=== PATIENT | female | born 1965 | race Caucasian/White ===

== ENCOUNTER → 2016-03-07 | Outpatient (CLI) | payer BC ==
[~2016-03-07] MED LIST: DIPH-437 PO; IMT100 PO; INDSR/60 PO; MELA3CAP PO; ONDA4TAB7 SL; OXYB15TA PO; PANT40TA PO; PRM625 PO; TOPI50TA16 PO; TOPI50TA25 PO
== END | disposition home or self-care (01) ==
LOC: C.PATH 08:05
PROVIDERS: ATTEND Obstetrics & Gynecology
DX: N63 Unspecified lump in breast (principal); N62 Hypertrophy of breast

== ENCOUNTER → 2016-04-11 | Outpatient (CLI) | payer BC ==
[2016-04-11 10:03] LABS: HEMATOCRIT 39.6 % (37-47); MEAN CELL VOLUME 85.7 fL (80-100); MEAN CORPUSCULAR HEMOGLOBIN 28.8 pg (25-34); MEAN CORPUSCULAR HGB CONC 33.6 g/dl (32-36); MEAN PLATELET VOLUME 9.8 fL (7.4-10.4); PLATELET COUNT 289 K/uL (130-400); RED BLOOD COUNT 4.62 M/uL (4.2-5.4); WHITE BLOOD COUNT 4.59 K/uL (4.8-10.8)
[2016-04-11 10:10] LABS: ESTIMATED AVERAGE GLUCOSE 108 mg/dl; HA1C FLAG Normal (Normal)
[2016-04-11 10:22] LABS: BASO % 0.7 %; BASO ABS # 0.03 K/uL (0-0.2); COMPLETE YES; EOS % 1.1 %; IG% 0.2 %; LYMPH % 53.2 %; LYMPH ABS # 2.44 K/uL (1.2-3.4); MONO % 3.9 %; NEUT % 40.9 %
[2016-04-11 10:38] LABS: ALT/SGPT 20 U/L (12-78); AST/SGOT 8 U/L (15-37); BLOOD UREA NITROGEN 12 mg/dl (7-18); BUN/CREATININE RATIO 12.6 (10-20); CALCIUM 8.7 mg/dl (8.5-10.1); CARBON DIOXIDE 24 mmol/L (21-32); CHLORIDE 113 mmol/L (98-107); CREATININE 0.92 mg/dl (0.60-1.20); GLUCOSE 94 mg/dl (70-99); SODIUM 145 mmol/L (136-145)
[2016-04-11 10:41] LABS: ALKALINE PHOSPHATASE 65 U/L (45-117); CHOLESTEROL 205 mg/dl (0-200); CHOLESTEROL/HDL RATIO 2.6; HDL CHOLESTEROL 78 mg/dl; LDL CHOLESTEROL CALCULATED 107 mg/dl; TRIGLYCERIDES 98 mg/dl (0-150); VERY LOW DENSITY LIPOPROT CALC 20 mg/dl
== END | disposition home or self-care (01) ==
LOC: C.LAB1850 09:08
PROVIDERS: ATTEND Family Medicine
DX: R73.03 Prediabetes (principal); Z13.220 Encounter for screening for lipoid disorders; G43.909 Migraine, unspecified, not intractable, without status migrainosus

== ENCOUNTER → 2016-04-29 | Outpatient (CLI) | payer BC ==
--- NOTE | 2016-04-29 08:22 | DIAGNOSTIC IMAGING REPORT ---
FUSION CT SINUSES W/O CLINICAL HISTORY: Chronic sinusitis. History of prior sinus surgery. Polyp. Ethmoid blockage. COMPARISON STUDY: No previous studies for comparison. FINDINGS: No orbital masses are visualized. There is no hydrocephalus. The mastoid air cells appear symmetrically aerated. The middle ear cavities are well aerated. There are postsurgical changes present. The surgically created nasomaxillary apertures are widely patent bilaterally. There is mild bilateral maxilla sinus mucosal thickening. There is evidence for partial ethmoidectomies. The sphenoid sinus is clear. There is minimal frontal sinus mucosal thickening. There is minor nasal septal deviation to the left. The frontal recesses are patent bilaterally. IMPRESSION: Postsurgical change. Mild maxillary and ethmoid mucosal thickening. The created nasomaxillary apertures are widely patent bilaterally. The frontal recesses are patent bilaterally. Electronically signed by: Gary Ramirez M.D. 04/29/2016 8:21 AM Dictated Date/Time: 04/29/2016 8:18 AM
== END | disposition home or self-care (01) ==
LOC: C.CTS 08:03
PROVIDERS: ATTEND Surgery
DX: J32.9 Chronic sinusitis, unspecified (principal)

== ENCOUNTER → 2016-10-02 | Outpatient (CLI) | payer BC ==
[2016-10-02 17:44] LABS: BASO % 0.4 %; BASO ABS # 0.03 K/uL (0-0.2); COMPLETE YES; EOS % 0.9 %; HEMATOCRIT 39.4 % (37-47); IG% 0.1 %; LYMPH % 37.9 %; LYMPH ABS # 2.67 K/uL (1.2-3.4); MEAN CELL VOLUME 86.8 fL (80-100); MEAN CORPUSCULAR HEMOGLOBIN 27.8 pg (25-34); MEAN PLATELET VOLUME 10.4 fL (7.4-10.4); MONO % 4.5 %; NEUT % 56.2 %; PLATELET COUNT 304 K/uL (130-400); RED BLOOD COUNT 4.54 M/uL (4.2-5.4); WHITE BLOOD COUNT 7.04 K/uL (4.8-10.8)
[2016-10-02 18:09] LABS: ALT/SGPT 27 U/L (12-78); AST/SGOT 12 U/L (15-37); BLOOD UREA NITROGEN 9 mg/dl (7-18); BUN/CREATININE RATIO 8.1 (10-20); CARBON DIOXIDE 25 mmol/L (21-32); CHLORIDE 111 mmol/L (98-107); GLUCOSE 104 mg/dl (70-99); POTASSIUM 3.9 mmol/L (3.5-5.1); SODIUM 142 mmol/L (136-145)
[2016-10-02 18:19] LABS: ALB/GLOB RATIO 0.9 (0.9-2); ALKALINE PHOSPHATASE 76 U/L (45-117)
[2016-10-02 19:21] LABS: LYME DISEASE AB IGG NEG (NEG); LYME DISEASE AB IGM NEG (NEG)
== END | disposition home or self-care (01) ==
LOC: C.LAB1850 16:24
PROVIDERS: ATTEND Internal Medicine
DX: M25.50 Pain in unspecified joint (principal); R53.83 Other fatigue

== ENCOUNTER → 2016-10-16 | Outpatient (CLI) | payer BC ==
--- NOTE | 2016-10-16 09:48 | DIAGNOSTIC IMAGING REPORT ---
LEFT KNEE 2 VIEWS HISTORY: Left knee pain. M25.50 Arthralgia of multiple trlrvE68.83 VqssfxvB17 Body aches COMPARISON: None. FINDINGS: There is no fracture or dislocation. Soft tissues are unremarkable. No radiopaque foreign bodies. Cartilage spaces are maintained. Bone mineralization is intact. No significant knee effusion. IMPRESSION: No significant abnormality within the left knee by conventional radiographic technique. Electronically signed by: New Wills M.D. 10/16/2016 9:47 AM Dictated Date/Time: 10/16/2016 9:46 AM
--- NOTE | 2016-10-16 09:48 | DIAGNOSTIC IMAGING REPORT ---
RIGHT KNEE 1 OR 2 VIEWS ROUTINE CLINICAL HISTORY: 51 years-old Female presenting with M25.50 Arthralgia of multiple ozjlyS74.83 RzagwkcM20 Body achesR Right. TECHNIQUE: Frontal and lateral views of the right knee were obtained. COMPARISON: Comparison made to plain radiographs of the left knee performed the same day. FINDINGS: Knee joint congruent. No acute fracture or malalignment. No joint space loss. Minimal osteophytosis at the medial and lateral aspects of the tibial plateau are suggested. Osteophytosis also noted in the patellofemoral compartment. No large effusion. IMPRESSION: 1. No acute osseous injury of the right knee. 2. 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 No joint space loss. Electronically signed by: Shekhar Donald M.D. 10/16/2016 9:47 AM Dictated Date/Time: 10/16/2016 9:45 AM
--- NOTE | 2016-10-16 09:50 | DIAGNOSTIC IMAGING REPORT ---
RIGHT HAND MIN 3 VIEWS ROUTINE, LEFT HAND MIN 3 VIEWS ROUTINE HISTORY: 51 years-old Female M25.50 Arthralgia of multiple daumyA08.83 Fatigue R52 Body aches COMPARISON: None available TECHNIQUE: 3 views of the bilateral hands. FINDINGS: RIGHT HAND: Mild degenerative changes are present within the first carpometacarpal joint. No acute fracture or dislocation. Punctate radiodensity at the distal fourth digit appears to be on the nail. No radiopaque foreign body is identified. No erosive arthropathy. There is positive ulnar variance of 3 mm. LEFT HAND: Mild degenerative changes are present within the first carpometacarpal joint. There is positive ulnar variance of 3 mm. No acute fracture, dislocation or radiopaque foreign body is identified. IMPRESSION: 1. No acute fracture or dislocation is identified in either the right or left hand. 2. Mild degenerative changes of the bilateral first carpometacarpal joints. The above report was generated using voice recognition software. It may contain grammatical, syntax or spelling errors. Electronically signed by: Flavio Leavitt M.D. 10/16/2016 9:49 AM Dictated Date/Time: 10/16/2016 9:45 AM
--- NOTE | 2016-10-16 09:50 | DIAGNOSTIC IMAGING REPORT ---
RIGHT HAND MIN 3 VIEWS ROUTINE, LEFT HAND MIN 3 VIEWS ROUTINE HISTORY: 51 years-old Female M25.50 Arthralgia of multiple solnjZ25.83 Fatigue R52 Body aches COMPARISON: None available TECHNIQUE: 3 views of the bilateral hands. FINDINGS: RIGHT HAND: Mild degenerative changes are present within the first carpometacarpal joint. No acute fracture or dislocation. Punctate radiodensity at the distal fourth digit appears to be on the nail. No radiopaque foreign body is identified. No erosive arthropathy. There is positive ulnar variance of 3 mm. LEFT HAND: Mild degenerative changes are present within the first carpometacarpal joint. There is positive ulnar variance of 3 mm. No acute fracture, dislocation or radiopaque foreign body is identified. IMPRESSION: 1. No acute fracture or dislocation is identified in either the right or left hand. 2. Mild degenerative changes of the bilateral first carpometacarpal joints. The above report was generated using voice recognition software. It may contain grammatical, syntax or spelling errors. Electronically signed by: Flavio Leavitt M.D. 10/16/2016 9:49 AM Dictated Date/Time: 10/16/2016 9:45 AM
[2016-10-16 12:16] LABS: URINE APPEARANCE CLEAR (CLEAR); URINE BILIRUBIN NEG (NEG); URINE COLOR YELLOW; URINE EPITHELIAL CELL AUTO >30 /lpf (0-5); URINE NITRITE NEG (NEG); URINE PH 7.5 (4.5-7.5); URINE SPECIFIC GRAVITY 1.007 (1.000-1.030); UROBILINOGEN NEG (NEG)
[2016-10-16 12:22] LABS: MANUAL MICROSCOPIC REQUIRED? NO; REVIEW REQ? NO
[2016-10-16 12:31] LABS: RHEUMATOID FACTOR < 10.0 U/mL (0-15); TOTAL IRON BINDING CAPACITY 363 mcg/dl (250-450)
[2016-10-21 03:01] LABS: ANTI-CENTROMERE AB <1.0 NEG AI (<1.0 NEG); ANTI-SS-A <1.0 NEG AI (<1.0 NEG); ANTI-SS-B <1.0 NEG AI (<1.0 NEG); DNA ds CRITHIDIA NEGATIVE (NEGATIVE); MICROSOMAL AB <1 IU/ML (<9); PARVOVIRUS IgG INDEX 0.3 (<0.9); PARVOVIRUS IgM INDEX 0.1 (<0.9); Sm Antibody <1.0 NEG AI (<1.0 NEG)
--- NOTE | 2016-10-21 11:36 | CODING QUERY MEDICAL NECESSITY ---
CQSUPPORTING DIAGNOSIS NEEDED A supporting diagnosis is required for the test/procedure performed on this patient in order for us to be reimbursed by the patient's insurance. Please provide a supporting diagnosis for the following test/procedure listed below next to the test name along with your signature. *If there is no additional diagnosis for this patient that would support the following test/procedure please document that below next to the test/procedure. Test(s)/Procedure(s) that require a supporting diagnosis: DOS 10/16/16 VITAMIN D TEST Provider Signature: Date: Thank you Dolores Hernandes Health Information Management Once completed, please kindly fax back to [phone] For questions please call [phone]
== END | disposition home or self-care (01) ==
LOC: C.RAD1850 09:29
PROVIDERS: ATTEND Internal Medicine Rheumatology
DX: M25.50 Pain in unspecified joint (principal); R53.83 Other fatigue; R76.8 Other specified abnormal immunological findings in serum; M17.11 Unilateral primary osteoarthritis, right knee; E55.9 Vitamin D deficiency, unspecified

== ENCOUNTER → 2016-10-31 | Outpatient (CLI) | payer BC ==
--- NOTE | 2016-10-31 12:44 | MAMMOGRAPHY REPORT ---
BILATERAL DIGITAL SCREENING MAMMOGRAM TOMOSYNTHESIS WITH CAD: 10/31/2016 CLINICAL HISTORY: Routine screening. Patient has no complaints. TECHNIQUE: Breast tomosynthesis in addition to standard 2D mammography was performed. Current study was also evaluated with a Computer Aided Detection (CAD) system. COMPARISON: Comparison is made to exams dated: 10/12/2015 mammogram, 09/08/2014 mammogram, 06/03/2013 m ammogram, 04/30/2012 mammogram, 04/24/2011 mammogram, and 01/23/2010 mammogram - [facility]. BREAST COMPOSITION: There are scattered areas of fibroglandular density in both breasts. FINDINGS: The parenchymal pattern is similar to prior mammograms. There are a few benign-appearing microcalcifications in the left breast. No developing mass, architectural distortion or cluster of s uspicious microcalcifications is seen in either breast. IMPRESSION: ACR BI-RADS CATEGORY 2: BENIGN There is no mammographic evidence of malignancy. A 1 year screening mammogram is recommended. The pa tient will receive written notification of the results. Approximately 10% of breast cancers are not detected with mammography. A negative mammographic report should not delay biopsy if a clinically suggestive mass is present. Chelsey Sen M.D. ay/:10/31/2016 08:15:06 [employer] Associate: Oly CALDERÓN(Alberto)(Terrie)([place]), [facility] letter sent: Normal 1/2 BI-RADS Code: ACR BI-RADS Category 2: Benign
== END | disposition home or self-care (01) ==
LOC: C.MAMM 07:46
PROVIDERS: ATTEND Obstetrics & Gynecology
DX: Z12.31 Encounter for screening mammogram for malignant neoplasm of breast (principal)

== ENCOUNTER → 2016-12-11 | Outpatient (CLI) | payer BC | END | disposition home or self-care (01) | LOC: C.LAB1850 10:06 | PROVIDERS: ATTEND Neuromusculoskeletal Medicine & OMM | DX: R53.83 Other fatigue (principal) ==

== ENCOUNTER → 2017-01-29 | Outpatient (CLI) | payer BC | END | disposition home or self-care (01) | LOC: C.LAB1850 13:30 | PROVIDERS: ATTEND Neuromusculoskeletal Medicine & OMM | DX: R53.83 Other fatigue (principal) ==

== ENCOUNTER → 2017-02-27 | Outpatient (CLI) | payer BC ==
[~2017-02-27] MED LIST changes: +CETI10TA84 PO; +CHOL20009 PO
== END | disposition home or self-care (01) ==
LOC: C.PATHSPEC 17:23
PROVIDERS: ATTEND Plastic Surgery
DX: L82.1 Other seborrheic keratosis (principal)

== ENCOUNTER 2017-03-14 09:04 | Emergency (ER) | payer OTHER, BC ==
[~2017-03-14] VITALS: Ht 172.7 cm; Wt 100.9 kg
[~2017-03-14 09:04] MED LIST changes: -CETI10TA84 PO; -CHOL20009 PO
[2017-03-14 09:07] VITALS: TEMP 36.6; Ht 172.7 cm; Wt 100.9 kg
[2017-03-14] MEDS ORDERED: ACETAMINOPHEN 500 MG TAB PO STA (09:21)
[2017-03-14] MEDS ORDERED: CETI10TA84 PO (09:48)
[2017-03-14] MEDS ORDERED: CHOL20009 PO (09:48)
--- NOTE | 2017-03-14 09:52 | DIAGNOSTIC IMAGING REPORT ---
R ELBOW MIN 3 VIEWS ROUTINE CLINICAL HISTORY: Fall. Right elbow pain. COMPARISON STUDY: None. FINDINGS: No fracture or dislocation. Soft tissues are unremarkable. No elbow effusion. IMPRESSION: No fracture or dislocation within the right elbow. Electronically signed by: New Wills M.D. 03/14/2017 9:50 AM Dictated Date/Time: 03/14/2017 9:48 AM
--- NOTE | 2017-03-14 10:43 | EMERGENCY ROOM VISIT NOTE ---
ED Visit Note First contact with patient: 09:12 CHIEF COMPLAINT: Right elbow injury 1 hour ago HISTORY OF PRESENT ILLNESS: Patient is a [id number] 51-year-old female who presents to the emergency department for evaluation of right elbow pain after a fall roughly 1 hour ago. She slipped on ice outside of her office , landing on her flexed right elbow with immediate onset of pain. She notes a constant pain in the elbow that she rates an 8/10. She has not had any medication for her pain. Pain is worse with movement. She states that it radiates slightly up her upper arm. She has been treated for a right frozen shoulder recently. Patient denies any other injuries. REVIEW OF SYSTEMS: Review of systems as per HPI. All other systems reviewed were negative. At least 6 systems reviewed. PMH: Electronic medical records are reviewed and summarized as above/below. See Problem List. SOCIAL HISTORY: Patient lives at home with her spouse. Nonsmoker. PHYSICAL EXAM: Vital Signs: Reviewed nurse's notes. CONSTITUTIONAL: Patient is a well-appearing 51-year-old white female who is awake and alert and in mild distress due to her elbow pain. MUSCULOSKELETAL: Examination of the right elbow notes some minor superficial ecchymosis. There is no pain or obvious deformity over the olecranon process. She does have some pain over the proximal radial head. She can flex greater than 90, just lacks a few degrees of extension. She can pronate and supinate fully but has discomfort with end range of motion. Shoulder and wrist are nontender. Right upper extremity is neurovascularly intact. EMERGENCY DEPARTMENT COURSE: Patient was given an ice pack and Tylenol for discomfort. X-rays of the right elbow were obtained and were negative for fracture. Patient was fitted with an arm sling. Conservative care measures were discussed. Differential diagnosis included fracture, dislocation, contusion, among others. She was encouraged to follow-up with orthopedics or her worker's compensation physician for further care and management particularly if her symptoms are not improving. Medication reconciliation: I attest that I have personally reviewed the patient' s current medication list. Blood pressure screening: Patient was found to have a slightly elevated blood pressure due to circumstances. I do not believe that the patient requires hypertension monitoring. R ELBOW MIN 3 VIEWS ROUTINE CLINICAL HISTORY: Fall. Right elbow pain. COMPARISON STUDY: None. FINDINGS: No fracture or dislocation. Soft tissues are unremarkable. No elbow effusion. IMPRESSION: No fracture or dislocation within the right elbow. Problem List Medical Problems: (1) Calculus Of Kidney Status: Resolved (2) Esophageal Reflux Status: Chronic (3) Kidney stone on left side Status: Resolved (4) Migraine Unspecified W/O Intract Mgrn W/O Status Migrainosus Status: Chronic (5) Polycystic Ovaries Status: Chronic (6) Ureteral colic Status: Resolved (7) Vitamin D Deficiency, Unspecified Status: Chronic Surgical Problems: (1) History of hysterectomy Status: Resolved Current/Historical Medications Scheduled Cetirizine (Zyrtec), 10 MG PO DAILY Cholecalciferol (Vitamin D), 2,000 UNITS PO DAILY Estrogens, Conjugated (Premarin), 0.625 MG PO HS Melatonin (Melatonin), 3 MG PO HS Oxybutynin Chloride (Oxybutynin Chloride Er), 15 MG PO QAM Pantoprazole (Protonix), 40 MG PO BID Propranolol Hcl (Propranolol ER), 60 MG PO QAM Sumatriptan Succinate (Imitrex), 100 MG PO PRN Topiramate (Topiramate), 100 MG PO BID Allergies Coded Allergies: No Known Allergies (Unverified , 03/14/17) Vital Signs Date Time Temp Pulse Resp B/P (MAP) Pulse Ox O2 Delivery O2 Flow Rate FiO2 03/14/17 10:55 82 18 128/84 98 03/14/17 09:07 36.6 69 18 152/93 100 Room Air Medications Administered Medications (Trade) Dose Ordered Sig/Sue Route Start Time Stop Time Status Last Admin Dose Admin Acetaminophen (Tylenol Tab) 1,000 mg NOW STAT PO 03/14/17 09:21 03/14/17 09:22 DC 03/14/17 09:27 1,000 MG Departure Information Impression Primary Impression: Injury of right elbow Additional Impression: Work related injury Referrals No Doctor, Assigned (PCP) Patient Instructions [facility], [facility] Additional Instructions Ibuprofen(Motrin, Advil) may be used for fever or pain. Use 600mg every six hours as needed. Take with food. Avoid using more than 2400mg in a 24 hour period. Do not use 2400mg per day for more than three consecutive days without physician direction. Prolonged inappropriate use can lead to stomach upset or ulcers. This medication can be taken if you need to drive, work, or perform activities which may be dangerous when taking narcotic pain medication. (AND/OR) Acetaminophen(Tylenol) may be used for fever or pain. Use 1000mg every six hours as needed. Avoid using more than 3000mg in a 24 hour period. This medication can be taken if you need to drive, work, or perform activities which may be dangerous when taking narcotic pain medication. Ice compresses for 20 minutes at a time four times daily for 2-3 days. Use the sling as instructed. Remove your arm from the sling 4-6 times a day and move all the joints around to keep them loose. Rest and elevate your injury. May resume normal activity as your pain allows. Continue current medications. Return to the ER immediately for any numbness, tingling, severe pain, extreme swelling in the extremity or as needed. Follow-up with your workers compensation provider or with orthopedic surgery if you do not feel that your symptoms are improving in the next 3-5 days. Problem Qualifiers
[2017-03-14 10:55] VITALS: BP 128/84; PULSE 82; O2SAT 98
== END 2017-03-14 10:55 | disposition home or self-care (01) ==
LOC: C.EDB 09:05
DX: S59.901A Unspecified injury of right elbow, initial encounter (principal); W00.0XXA Fall on same level due to ice and snow, initial encounter; Y92.89 Other specified places as the place of occurrence of the external cause; Y99.0 Civilian activity done for income or pay; K21.9 Gastro-esophageal reflux disease without esophagitis; Z87.442 Personal history of urinary calculi; G43.909 Migraine, unspecified, not intractable, without status migrainosus; E28.2 Polycystic ovarian syndrome; E55.9 Vitamin D deficiency, unspecified; Z79.899 Other long term (current) drug therapy

== ENCOUNTER → 2017-04-16 | Outpatient (CLI) | payer BC ==
[~2017-04-16] MED LIST changes: +CETI10TA84 PO; +CHOL20009 PO; -DIPH-437 PO; -ONDA4TAB7 SL; -TOPI50TA16 PO
== END | disposition home or self-care (01) ==
LOC: C.CPL 11:10
PROVIDERS: ATTEND Orthopaedic Surgery
DX: S43.421D Sprain of right rotator cuff capsule, subsequent encounter (principal); X58.XXXD Exposure to other specified factors, subsequent encounter

== ENCOUNTER → 2017-06-12 | Outpatient (CLI) | payer BC | END | disposition home or self-care (01) | LOC: C.LAB1850 15:13 | PROVIDERS: ATTEND Neuromusculoskeletal Medicine & OMM | DX: L65.9 Nonscarring hair loss, unspecified (principal) ==

== ENCOUNTER 2020-05-09 11:43 | Inpatient (IN) ==
[2020-05-09] MEDS ORDERED: dexAMETHasone**PF** 10 MG/ML VIAL IV ONE (12:09)
[2020-05-09] MEDS ORDERED: SODIUM CHLORIDE 0.9% 1000ML 1,000 ML IV ONE (12:09)
[2020-05-09] MEDS ORDERED: SODIUM CHLORIDE 0.9% 1000ML 1,000 ML IV STA (12:09)
[2020-05-09] MEDS ORDERED: DEXAMETHASONE SOD INJ 10 MG/ML VIAL ONE (12:21)
--- NOTE | 2020-05-09 12:22 | Emergency Department Note ---
Impression & Plan Pneumonia due to COVID-19 virus, Hypoxia, Shortness of breath ED Provider Note RapidNAME: ABIGAIL FABIAN AGE: 54 SEX: F : 1965 ARRIVES VIA: Walk-In INFORMANT: Patient ED PROVIDER(S): Michael Gibbs DO CHIEF COMPLAINT: Shortness of breath HPI: Patient is a 54-year-old female who presents ER for shortness of breath. She tested positive for Covid over a week ago. She notes her symptoms of weakness and shortness of breath have been getting significantly worse. She also admits to some congestion. Denies any change in vision. No chest pain or belly pain. Denies any dysuria, urgency, or frequency. No other exacerbating or remitting factors. She was seen here within the week and placed on doxycycline. ROS: See above HPI for pertinent positives & negatives. A total of 10 systems reviewed and were otherwise negative. PAST MEDICAL HISTORY:See Below PAST SURGICAL HISTORY:See Below FAMILY HISTORY:See Below SOCIAL HISTORY:See Below HOME MEDICATIONS:See Below ALLERGIES:See Below VITALS:See Below PHYSICAL EXAMINATION: GENERAL: Sitting up in bed, alert, slightly ill-appearing, mildly dyspneic with conversation EYE EXAM: normal conjunctiva. OROPHARYNX: Mask in place NECK: supple, no nuchal rigidity, no adenopathy, non-tender LUNGS: Diminished bilaterally. Normal chest wall mechanics HEART: no murmurs, S1 normal and S2 normal ABDOMEN: abdomen soft, non-tender, normo-active bowel sounds, no masses, no rebound or guarding. UPPER EXTREMITIES: upper extremities are grossly normal. LOWER EXTREMITIES: No pitting edema. Calves are equal bilateral NEURO EXAM: Normal sensorium, cranial nerves II-XII grossly intact, normal speech, no gross weakness of arms, no gross weakness of legs. MEDICAL DECISION MAKING: Patient is a 54-year-old female Covid positive presents ER for shortness of breath. Upon presentation she was found to be hypoxic and was placed on nasal cannula. She remained on this throughout remainder of her stay in the ER and was flipped to high flow nasal cannula as she began to desaturate. IV was established blood work obtained. Labs showed no significant leukocytosis or anemia. BMP with a mild hypokalemia 3.1. LFTs bilirubin was unremarkable. Troponin was negative. Pro-Mario was nearly normal at 0.5. Covid was positive. EKG was nondiagnostic. She is given IV steroids updated bedside discussed with the hospitalist for further evaluation Triage Nursing notes reviewed. Limited review of prior medical records performed Vital Signs: reviewed and remarkable for tachy and hypoxic Differential diagnosis: Differential diagnoses includes but is not limited to pneumonia, bronchitis, COPD/Asthma exacerbation, pneumothorax, pulmonary embolism, congestive heart failure, acute coronary syndrome ER treatment provided: See below Diagnostics interpreted by me: ECG: Sinus rhythm rate of 94 Left axis No PVCs T wave flattening in the lateral leads Nonspecific ST wave changes in the anterior leads QTC 452 Cardiac Monitoring: An order was placed for continuous cardiac monitoring. The monitor shows a rate of 98 with sinus rhythm. Laboratory studies: As stated above and show below. Imaging studies: Portable AP upright 1 view the chest shows multifocal infiltrate Consultation(s): Discussed with Dr. Rc Salgado for further evaluation Procedures: none Critical Care: I have personally spent 35 minutes of critical care time in the direct management of this patient. This includes bedside care, interpretation of diagnostic studies, and testing, discussion with consultants, patient, and family members, and other required patient management activities. This 35 minutes is in excess of all separately billable procedures. Past Med/Surg History Medical History GERD (gastroesophageal reflux disease) Herpes simplex Hx of migraines Kidney stones Migraine without aura, not intractable, without status migrainosus propranolol for migraines Osteoarthritis Osteomalacia pt unaware Positive HAYDEN (antinuclear antibody) Surgical History H/O arthroscopy of shoulder bilateral History of carpal tunnel release bilateral History of esophagogastroduodenoscopy (EGD) History of lithotripsy History of sinus surgery x2 History of tooth extraction History of total abdominal hysterectomy History of tubal ligation Family History Mother Myocardial infarction Denies family history of Colon cancer Ovarian cancer Prostate cancer Breast cancer Colorectal cancer Social History Smoking Status: Never smoker Second Hand Exposure: No; Hx Alcohol Use: Yes Alcohol type: wine Alcohol Intake Frequency: Monthly or Less Hx Substance Use: No Preferred Language: Yakut Communication Ability: Effective Visual Impairment: No Limitations Hearing Ability: Normal 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 Beliefs That Will Affect Care: None marital status: Current Living Situation: Spouse current occupational status: employed Other Information That Helps Us Care for You: No Feels Safe at Home: Yes Safety Concerns: Feels Safe At This Time Childhood Exposure to Second-Hand Smoke: No Dental Care, Regularly: Yes Physical Activity Frequency: 3-4 Times per Week Physical Activity Frequency Comment: walking Seatbelt Use: always Sunscreen Use: Yes Assistive Devices: Glasses Allergies Allergies Allergy/AdvReac Type Severity Reaction Status Date / Time adhesive AdvReac Mild Rash Uncoded 05/09/20 13:38 Home Meds Home Medications Medication Instructions Recorded Confirmed cetirizine 10 mg tablet 10 mg PO BID 12/17/19 05/09/20 cholecalciferol (vitamin D3) 50 5,000 units PO HS tab 12/17/19 05/09/20 mcg (2,000 unit) tablet sumatriptan succinate 100 mg tablet 100 mg PO UD PRN tab 12/17/19 05/09/20 Fish Oil Extra Strength 2 cap PO QAM 04/20/20 05/09/20 cevimeline 30 mg PO BID 04/20/20 05/09/20 pantoprazole 40 mg PO BID 04/20/20 05/09/20 propranolol 60 mg PO QAM 04/20/20 05/09/20 topiramate [Topamax] 50 - 100 mg PO BID 04/20/20 05/09/20 trazodone 50 - 100 mg PO HS PRN 04/20/20 05/09/20 melatonin 5 mg PO HS 05/09/20 05/09/20 oxybutynin chloride 15 mg PO QAM 05/09/20 05/09/20 Previous Rx's Medication Instructions Recorded valacyclovir 1 gram tablet 2,000 mg PO DAILY PRN #12 tab 01/05/20 albuterol sulfate 1 inh INHALATION Q4H PRN #8.5 g 05/07/20 doxycycline hyclate 100 mg PO BID 7 Days #14 cap 05/07/20 promethazine 25 mg PO QID PRN #20 tab 05/07/20 Results & Data (ED) Vital Signs Vital Signs - 24 hr 05/09/20 11:46 05/09/20 11:52 05/09/20 12:00 Temperature 36.6 C Temperature Source Temporal Artery Scan Pulse Rate 96 H 94 H Pulse Rate [Right] Pulse Rate from SpO2 Sensor 95 H Respiratory Rate 18 36 H Respiratory Effort / Characteristics Spontaneous Respiratory Depth Normal Blood Pressure 129/80 155/87 H Blood Pressure Mean 96 109 Blood Pressure Position Sitting Pulse Oximetry 88 L 94 Oxygen Delivery Method Room Air Nasal Cannula Oxygen Flow Rate 2 Fraction of Inspired Oxygen Sepsis Recent Fever Within 48 Hours No Sepsis New/Unexplained Change in Mental Status No Sepsis Action Taken by Nursing No Action Required Oxygen Flow Rate - Titration Pulse Oximetry Post Tiitration 05/09/20 12:33 05/09/20 12:45 05/09/20 13:00 Temperature Temperature Source Pulse Rate 95 H 91 H Pulse Rate [Right] Pulse Rate from SpO2 Sensor 97 H 91 H Respiratory Rate 34 H 36 H Respiratory Effort / Characteristics Spontaneous Respiratory Depth Blood Pressure 140/83 142/83 H Blood Pressure Mean 102 102 Blood Pressure Position Pulse Oximetry 93 94 92 Oxygen Delivery Method Nasal Cannula High Flow Nasal Cannula Oxygen Flow Rate 3 Fraction of Inspired Oxygen Sepsis Recent Fever Within 48 Hours Sepsis New/Unexplained Change in Mental Status Sepsis Action Taken by Nursing Oxygen Flow Rate - Titration Pulse Oximetry Post Tiitration 05/09/20 13:25 05/09/20 13:30 05/09/20 13:59 Temperature Temperature Source Pulse Rate 90 Pulse Rate [Right] 94 H Pulse Rate from SpO2 Sensor 90 Respiratory Rate 36 H 20 Respiratory Effort / Characteristics Non-Labored Spontaneous Respiratory Depth Blood Pressure 146/79 H Blood Pressure Mean 101 Blood Pressure Position Pulse Oximetry 88 L 95 96 Oxygen Delivery Method Nasal Cannula High Flow Nasal Cannula High Flow Nasal Cannula Oxygen Flow Rate 3 30 Fraction of Inspired Oxygen 50 Sepsis Recent Fever Within 48 Hours Sepsis New/Unexplained Change in Mental Status Sepsis Action Taken by Nursing Oxygen Flow Rate - Titration 6 Pulse Oximetry Post Tiitration 93 05/09/20 14:00 Temperature Temperature Source Pulse Rate 92 H Pulse Rate [Right] Pulse Rate from SpO2 Sensor 92 H Respiratory Rate 28 H Respiratory Effort / Characteristics Respiratory Depth Blood Pressure 150/78 H Blood Pressure Mean 102 Blood Pressure Position Pulse Oximetry 96 Oxygen Delivery Method High Flow Nasal Cannula Oxygen Flow Rate Fraction of Inspired Oxygen Sepsis Recent Fever Within 48 Hours Sepsis New/Unexplained Change in Mental Status Sepsis Action Taken by Nursing Oxygen Flow Rate - Titration Pulse Oximetry Post Tiitration Laboratory Data Result diagrams: 05/09/20 12:24 05/09/20 12:24 Lab Results 05/09/20 05/09/20 05/09/20 Range/Units 12:24 12:24 12:24 WBC 5.56 (4.8-10.8) K/uL RBC 4.60 (4.2-5.4) M/uL Hgb 13.2 (12.0-16.0) g/dL Hct 38.6 (37-47) % MCV 83.9 (80-100) fL MCH 28.7 (25-34) pg MCHC 34.2 (32-36) g/dL RDW Std Deviation 40.8 (36.4-46.3) fL RDW Coeff of Quoc 13.3 (11.5-14.5) % Plt Count 206 (130-400) K/uL MPV 9.8 (7.4-10.4) fL Immature Gran % (Auto) 0.2 % Neut % (Auto) 76.4 % Lymph % (Auto) 19.4 % [place] % (Auto) 4.0 % Eos % (Auto) 0.0 % Baso % (Auto) 0.0 % Neut # (Auto) 4.25 (1.4-6.5) K/uL Lymph # (Auto) 1.08 L (1.2-3.4) K/uL [place] # (Auto) 0.22 (0.11-0.59) K/uL Eos # (Auto) 0.00 (0-0.5) K/uL Baso # (Auto) 0.00 (0-0.2) K/uL Immature Gran # (Auto) 0.01 (0.00-0.02) K/uL RBC Morphology Unremarkable D-Dimer 700 H* (0-500) ug/L FEU Sodium 139 (136-145) mmol/L Potassium 3.1 L (3.5-5.1) mmol/L Chloride 110 H (98-107) mmol/L Carbon Dioxide 21 (21-32) mmol/L Anion Gap 8.0 (3-11) BUN 14 (7-18) mg/dl Creatinine 0.86 (0.6-1.2) mg/dl Est Cr Clr Drug Dosing 88.4 ml/min Est GFR ( Amer) 88.8 Est GFR (Non-Af Amer) 76.6 BUN/Creatinine Ratio 15.8 (10-20) Glucose 124 H (70-99) mg/dl Calcium 8.3 L (8.5-10.1) mg/dl Total Bilirubin 0.5 (0.2-1) mg/dl AST 31 (15-37) U/L ALT 17 (12-78) U/L Alkaline Phosphatase 37 L (45-117) U/L Troponin I < 0.015 (0-0.045) ng/ml C-Reactive Protein (0-0.29) mg/dl Total Protein 7.0 (6.4-8.2) gm/dl Albumin 2.9 L (3.4-5.0) gm/dl Globulin 4.1 H (2.5-4.0) gm/dl Albumin/Globulin Ratio 0.7 L (0.9-2) Lipase 249 (73-393) U/L Procalcitonin (0-0.5) ng/ml COVID-19 Eval Order SARS-CoV-2 (PCR) (Negative) Influenza Type A (PCR) (Neg) Influenza Type B (PCR) (Neg) RSV (RT-PCR) (Neg) 05/09/20 05/09/20 05/09/20 Range/Units 12:24 12:24 13:57 WBC (4.8-10.8) K/uL RBC (4.2-5.4) M/uL Hgb (12.0-16.0) g/dL Hct (37-47) % MCV (80-100) fL MCH (25-34) pg MCHC (32-36) g/dL RDW Std Deviation (36.4-46.3) fL RDW Coeff of Quoc (11.5-14.5) % Plt Count (130-400) K/uL MPV (7.4-10.4) fL Immature Gran % (Auto) % Neut % (Auto) % Lymph % (Auto) % [place] % (Auto) % Eos % (Auto) % Baso % (Auto) % Neut # (Auto) (1.4-6.5) K/uL Lymph # (Auto) (1.2-3.4) K/uL [place] # (Auto) (0.11-0.59) K/uL Eos # (Auto) (0-0.5) K/uL Baso # (Auto) (0-0.2) K/uL Immature Gran # (Auto) (0.00-0.02) K/uL RBC Morphology D-Dimer (0-500) ug/L FEU Sodium (136-145) mmol/L Potassium (3.5-5.1) mmol/L Chloride (98-107) mmol/L Carbon Dioxide (21-32) mmol/L Anion Gap (3-11) BUN (7-18) mg/dl Creatinine (0.6-1.2) mg/dl Est Cr Clr Drug Dosing ml/min Est GFR ( Amer) Est GFR (Non-Af Amer) BUN/Creatinine Ratio (10-20) Glucose (70-99) mg/dl Calcium (8.5-10.1) mg/dl Total Bilirubin (0.2-1) mg/dl AST (15-37) U/L ALT (12-78) U/L Alkaline Phosphatase (45-117) U/L Troponin I (0-0.045) ng/ml C-Reactive Protein 10.50 H (0-0.29) mg/dl Total Protein (6.4-8.2) gm/dl Albumin (3.4-5.0) gm/dl Globulin (2.5-4.0) gm/dl Albumin/Globulin Ratio (0.9-2) Lipase (73-393) U/L Procalcitonin 0.55 H (0-0.5) ng/ml COVID-19 Eval Order CovFluRsv at [facility] SARS-CoV-2 (PCR) (Negative) Influenza Type A (PCR) (Neg) Influenza Type B (PCR) (Neg) RSV (RT-PCR) (Neg) 05/09/20 Range/Units 13:57 WBC (4.8-10.8) K/uL RBC (4.2-5.4) M/uL Hgb (12.0-16.0) g/dL Hct (37-47) % MCV (80-100) fL MCH (25-34) pg MCHC (32-36) g/dL RDW Std Deviation (36.4-46.3) fL RDW Coeff of Quoc (11.5-14.5) % Plt Count (130-400) K/uL MPV (7.4-10.4) fL Immature Gran % (Auto) % Neut % (Auto) % Lymph % (Auto) % [place] % (Auto) % Eos % (Auto) % Baso % (Auto) % Neut # (Auto) (1.4-6.5) K/uL Lymph # (Auto) (1.2-3.4) K/uL [place] # (Auto) (0.11-0.59) K/uL Eos # (Auto) (0-0.5) K/uL Baso # (Auto) (0-0.2) K/uL Immature Gran # (Auto) (0.00-0.02) K/uL RBC Morphology D-Dimer (0-500) ug/L FEU Sodium (136-145) mmol/L Potassium (3.5-5.1) mmol/L Chloride (98-107) mmol/L Carbon Dioxide (21-32) mmol/L Anion Gap (3-11) BUN (7-18) mg/dl Creatinine (0.6-1.2) mg/dl Est Cr Clr Drug Dosing ml/min Est GFR ( Amer) Est GFR (Non-Af Amer) BUN/Creatinine Ratio (10-20) Glucose (70-99) mg/dl Calcium (8.5-10.1) mg/dl Total Bilirubin (0.2-1) mg/dl AST (15-37) U/L ALT (12-78) U/L Alkaline Phosphatase (45-117) U/L Troponin I (0-0.045) ng/ml C-Reactive Protein (0-0.29) mg/dl Total Protein (6.4-8.2) gm/dl Albumin (3.4-5.0) gm/dl Globulin (2.5-4.0) gm/dl Albumin/Globulin Ratio (0.9-2) Lipase (73-393) U/L Procalcitonin (0-0.5) ng/ml COVID-19 Eval Order SARS-CoV-2 (PCR) POSITIVE A* (Negative) Influenza Type A (PCR) Negative (Neg) Influenza Type B (PCR) Negative (Neg) RSV (RT-PCR) Negative (Neg) Administered Medications Discontinued Medications Dexamethasone (Dexamethasone Sod Inj 10 Mg/Ml Vial) Confirm Administered Dose 10 mg .ROUTE .STK-MED ONE Stop: 05/09/20 12:22 Last Admin: 05/09/20 12:29 Dose: 6 mg Documented by: [id number] Dexamethasone Sodium Phosphate (DexamethasonePf 10 Mg/Ml Vial) 6 mg IV NOW ONE Stop: 05/09/20 12:10 Last Admin: 05/09/20 12:30 Dose: Not Given Documented by: [id number] Sodium Chloride (Nss 1000ml) 1,000 mls @ 999 mls/hr IV .Q1H1M STA Stop: 05/09/20 13:09 Last Infusion: 05/09/20 16:12 Dose: 0 mls/hr Documented by: [id number] Admin: 05/09/20 12:29 Dose: 999 mls/hr Documented by: [id number] Sodium Chloride (Nss 1000ml) 1,000 mls @ 999 mls/hr IV .Q1H1M ONE Stop: 05/09/20 13:09 Last Infusion: 05/09/20 16:12 Dose: 0 mls/hr Documented by: [id number] Admin: 05/09/20 12:29 Dose: 999 mls/hr Documented by: [id number] Potassium Chloride (Potassium Chloride Crtab 20 Meq Tabcr) 40 meq PO NOW STA Stop: 05/09/20 13:38 Last Admin: 05/09/20 14:04 Dose: 40 meq Documented by: [id number] Discharge Plan Visit Data Chief Complaint: Shortness of Breath/Dyspnea Stated Complaint: SOB,LETHARGIC - COV+ 3/9 ED Provider: Michael Gibbs Discharge Problem: Pneumonia due to COVID-19 virus, Hypoxia, Shortness of breath Patient Disposition: Admitted As Inpatient Discharge Instructions Interventions: ED Discharge Assessment Last Done: 05/09/20 16:24
[2020-05-09 12:37] LABS: Hematocrit (blood only) 38.6 % (37-47); Hemoglobin 13.2 g/dL (12.0-16.0); Mean Corpuscular Hemoglobin 28.7 pg (25-34); Mean Corpuscular Hgb Conc 34.2 g/dL (32-36); Mean Corpuscular Volume 83.9 fL (80-100); Mean Platelet Volume 9.8 fL (7.4-10.4); Platelet Count 206 K/uL (130-400); RDW Coefficient of Variation 13.3 % (11.5-14.5); RDW Standard Deviation 40.8 fL (36.4-46.3); White Blood Count 5.56 K/uL (4.8-10.8)
--- NOTE | 2020-05-09 12:47 | XRay Report ---
SINGLE VIEW CHEST CLINICAL HISTORY: Atypical chest pain. Covid. FINDINGS: An AP, portable, upright chest radiograph is compared to study dated 05/07/2020. The cardiom ediastinal silhouette is unremarkable. Multifocal airspace consolidation is again seen throughout bot h lungs, left greater than right. This is increasingly confluent as compared to 05/07/2020. No large p leural effusion or pneumothorax is seen. The bony thorax is grossly intact. IMPRESSION: Multifocal airspace consolidation is consistent with the reported history of a viral pneu monia. This is increasingly confluent as compared to 05/07/2020. Radiographic follow-up to resolution is recommended. ACT 112: Negative or not required by law. Electronically signed by: Guy Sanabria M.D. 05/09/2020 12:46 PM
[2020-05-09 12:55] LABS: Alanine Aminotransferase 17 U/L (12-78); Albumin Level 2.9 gm/dl (3.4-5.0); Aspartate Aminotransferase 31 U/L (15-37); BUN Creatinine Ratio 15.8 (10-20); Blood Urea Nitrogen 14 mg/dl (7-18); Calcium 8.3 mg/dl (8.5-10.1); Carbon Dioxide 21 mmol/L (21-32); Chloride 110 mmol/L (98-107); Creatinine Clr Calc Pharmacy 88.4 ml/min; Est GFR (African American) 88.8; Est GFR (Non-African American) 76.6; Glucose 124 mg/dl (70-99); Lipase 249 U/L (73-393); Potassium 3.1 mmol/L (3.5-5.1); Sodium 139 mmol/L (136-145)
[2020-05-09 12:59] LABS: Immature Granulocytes # (auto) 0.01 K/uL (0.00-0.02); Immature Granulocytes % (auto) 0.2 %; Lymphocytes # (auto) 1.08 K/uL (1.2-3.4); Lymphocytes % (auto) 19.4 %; Monocytes # (auto) 0.22 K/uL (0.11-0.59); Neutrophils # (auto) 4.25 K/uL (1.4-6.5); Neutrophils % (auto) 76.4 %; RBC Morphology Unremarkable
[2020-05-09 13:00] LABS: Albumin Globulin Ratio 0.7 (0.9-2); Alkaline Phosphatase 37 U/L (45-117); Bilirubin,Total 0.5 mg/dl (0.2-1); Globulin 4.1 gm/dl (2.5-4.0); Troponin I < 0.015 ng/ml (0-0.045)
[2020-05-09] MEDS ORDERED: POTASSIUM CHLORIDE CRTAB 20 MEQ TABCR PO STA (13:37)
--- NOTE | 2020-05-09 13:43 | History & Physical Report ---
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 She tested positive for COVID-19 on May 02 (7 days ago) and feels she is not getting any better. Symptoms since 9 days ago; cough, nausea, not eaten anything in a week, diarrhea started today, generalized myalgias, fatigue and sore throat (2 days). No ongoing fever, chills, loss of taste or smell, nasal congestion, nausea, vomiting, chest or abdominal pain. Discussed with her over the phone and confirms rapid worsening of illness over last 2 days. Measuring her pulse ox at home which was 93% yesterday but 83% today. She did come to the ER 2 days ago and received Dexamethasone and doxycycline as well as given a albuterol inhaler (the latter of which she has not been taking. In the ER CXR concerning for multifocal airspace opacities consistent with viral pneumonia. She was started on Dexamethasone 6mg IV and due to diarrhea given NSS 2L bolus. She was referred to medicine for admission and ongoing management of hypoxia and COVID-19 pneumonia. Allergies Allergy/AdvReac Type Severity Reaction Status Date / Time adhesive AdvReac Mild Rash Uncoded 05/09/20 13:38 Home Medications Medication Instructions Recorded Confirmed Type cetirizine 10 mg tablet 10 mg PO BID 12/17/19 05/09/20 History cholecalciferol (vitamin D3) 50 5,000 units PO HS tab 12/17/19 05/09/20 History mcg (2,000 unit) tablet sumatriptan succinate 100 mg tablet 100 mg PO UD PRN tab 12/17/19 05/09/20 History valacyclovir 1 gram tablet 2,000 mg PO DAILY PRN #12 tab 01/05/20 05/09/20 Rx Fish Oil Extra Strength 2 cap PO QAM 04/20/20 05/09/20 History cevimeline 30 mg PO BID 04/20/20 05/09/20 History pantoprazole 40 mg PO BID 04/20/20 05/09/20 History propranolol 60 mg PO QAM 04/20/20 05/09/20 History topiramate [Topamax] 50 - 100 mg PO BID 04/20/20 05/09/20 History trazodone 50 - 100 mg PO HS PRN 04/20/20 05/09/20 History albuterol sulfate 1 inh INHALATION Q4H PRN #8.5 g 05/07/20 05/09/20 Rx doxycycline hyclate 100 mg PO BID 7 Days #14 cap 05/07/20 05/09/20 Rx promethazine 25 mg PO QID PRN #20 tab 05/07/20 05/09/20 Rx melatonin 5 mg PO HS 05/09/20 05/09/20 History oxybutynin chloride 15 mg PO QAM 05/09/20 05/09/20 History Past Med/Surg History Medical History GERD (gastroesophageal reflux disease) Herpes simplex Hx of migraines Kidney stones Migraine without aura, not intractable, without status migrainosus propranolol for migraines Osteoarthritis Osteomalacia pt unaware Positive HAYDEN (antinuclear antibody) Surgical History H/O arthroscopy of shoulder bilateral History of carpal tunnel release bilateral History of esophagogastroduodenoscopy (EGD) History of lithotripsy History of sinus surgery x2 History of tooth extraction History of total abdominal hysterectomy History of tubal ligation Family History Mother Myocardial infarction Denies family history of Colon cancer Ovarian cancer Prostate cancer Breast cancer Colorectal cancer Social History Smoking Status: Never smoker Second Hand Exposure: No; Hx Alcohol Use: Yes Alcohol type: wine Alcohol Intake Frequency: Monthly or Less Hx Substance Use: No Preferred Language: Vietnamese Communication Ability: Effective Visual Impairment: No Limitations Hearing Ability: Normal 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: No Beliefs That Will Affect Care: None marital status: Current Living Situation: Spouse current occupational status: employed Other Information That Helps Us Care for You: No Feels Safe at Home: Yes Safety Concerns: Feels Safe At This Time Childhood Exposure to Second-Hand Smoke: No Dental Care, Regularly: Yes Physical Activity Frequency: 3-4 Times per Week Physical Activity Frequency Comment: walking Seatbelt Use: always Sunscreen Use: Yes Assistive Devices: Glasses and Oxygen - Continuous Review of Systems Review of Systems: All systems reviewed & are unremarkable except as noted in HPI & below Physical Exam Constitutional: well developed, well nourished, + acute distress (respiartory), + ill appearing (fatigued) and + obese Eyes: PERRL, conjunctivae normal, anicteric sclerae ENMT: Ears: no external ear abnormality Nose: no external nose abnormality Mouth: + dry oral mucous membranes Neck: trachea midline Respiratory: + retractions and + uses accessory muscles; + not able to speak in complete sentence Auscultation: + diminished lung sounds (Bibasal) and + crackles (coarse throughout posteriorly); no wheezes Poor inspiratory effort Cardiovascular: Rate/Rhythm: regular rhythm and + tachycardic Heart Sounds: no murmur Vessels: no JVD Extremities: normal capillary refill; no calf tenderness and no pedal edema Gastrointestinal (Abdomen): normal bowel sounds, soft, nontender, no hepatosplenomegaly Musculoskeletal: no cyanosis or clubbing, extremities motor strength 5/5 Skin: no rashes, warm and dry Psychiatric: A+Ox3, euthymic affect Genitourinary: no CVA tenderness Results & Data Results & Data ([facility]) Vital Signs (Past 12 Hours) Vital Signs Temp Pulse Resp BP Pulse Ox 05/09/20 13:25 88 L 05/09/20 12:33 93 05/09/20 11:46 36.6 C 96 H 18 129/80 88 L Diagnostic Findings SINGLE VIEW CHEST IMPRESSION: Multifocal airspace consolidation is consistent with the reported history of a viral pneumonia. This is increasingly confluent as compared to 05/07/2020. Radiographic follow-up to resolution is recommended. Medications Administered ER medications given: NSS 2L bolus Dexamethasone 6 mg IV Potassium chloride 40 meq p.o. ECG Indication: SOB/dyspnea Rate (beats per minute): 94 Rhythm: normal sinus Findings: + other (T wave flattening lateral leads) and + T-wave inversion (Inferior) Comparison ECG Date: from (April 16, 2017) Change: the following changes noted (T wave changes as above are new) Code Status & VTE Plan Code Status Full VTE Prophylaxis Plan VTE Prophylaxis will be ordered: Yes PG Care Time/CCT Total # of Minutes Spent Total Time Spent with Patient: Total time spent is greater than 50% in coordination of care (as documented) at patient's floor/unit and/or counseling patient: Coding Level of Care Code 67337 Initial Inpt Care Lvl 3 Diagnoses Acute respiratory failure with hypoxia J96.01 COVID-19 U07.1 Multifocal pneumonia J18.9 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
[2020-05-09 14:37] LABS: D Dimer 700 ug/L FEU (0-500)
[2020-05-09 14:54] LABS: Influenza A virus by PCR Negative (Neg); Influenza B virus by PCR Negative (Neg); RSV by PCR Negative (Neg)
[2020-05-09 15:06] LABS: SARS CoV2 RNA(COVID-19) InHosp POSITIVE (Negative)
[2020-05-09] MEDS ORDERED: POLYETHYLENE (MIRALAX) 17 GM PACK PO PRN (17:12)
[2020-05-09] MEDS ORDERED: SUMAtriptan succinate 100 MG TAB PO PRN (17:12)
[2020-05-09] MEDS ORDERED: ACETAMINOPHEN 325 MG TAB PO PRN (17:12)
[2020-05-09] MEDS ORDERED: ALUMINUM/MAGNESIUM SUSP 30 ML UDC PO PRN (17:12)
[2020-05-09] MEDS: cefTRIAXone SODIUM 2,000 MG in DEXTROSE 5% 50 ML IV SCH (17:45)
[2020-05-09] MEDS ORDERED: AZITHROMYCIN 500 MG in DEXTROSE 5% 250 ML IV ONE (17:45)
[2020-05-09] MEDS: ENOXAPARIN INJ 40 MG/0.4 ML SYR SQ SCH (20:29)
[2020-05-09] MEDS: traZODone HCL 100 MG TAB PO SCH (20:30)
[2020-05-09] MEDS: MELATONIN 3 MG TAB PO SCH (20:30)
[2020-05-09] MEDS: CHOLECALCIFEROL 1,000 UNITS 25 MCG TAB PO SCH (20:30)
[2020-05-09] MEDS: CETIRIZINE HCL 10 MG TABLET PO SCH (20:30)
[2020-05-09] MEDS: TOPIRAMATE 100 MG TAB PO SCH (20:31)
[2020-05-09] MEDS: PANTOprazole 40 MG TAB PO SCH (20:31)
[2020-05-09] MEDS ORDERED: OPTIRAY 320 125ml IV ONE (22:41)
[2020-05-10 05:53] LABS: Hematocrit (blood only) 35.1 % (37-47); Hemoglobin 11.7 g/dL (12.0-16.0); Mean Corpuscular Hemoglobin 28.3 pg (25-34); Mean Corpuscular Hgb Conc 33.3 g/dL (32-36); Mean Corpuscular Volume 84.8 fL (80-100); Mean Platelet Volume 9.6 fL (7.4-10.4); Platelet Count 180 K/uL (130-400); RDW Coefficient of Variation 13.4 % (11.5-14.5); RDW Standard Deviation 41.6 fL (36.4-46.3); Red Blood Count 4.14 M/uL (4.2-5.4); White Blood Count 4.85 K/uL (4.8-10.8)
[2020-05-10 06:20] LABS: BUN Creatinine Ratio 18.1 (10-20); Calcium 8.5 mg/dl (8.5-10.1); Creatinine Clr Calc Pharmacy 130.9 ml/min; Est GFR (African American) 120.4; Est GFR (Non-African American) 103.9; Potassium 3.4 mmol/L (3.5-5.1)
[2020-05-10 06:24] LABS: Lymphocytes # (auto) 0.97 K/uL (1.2-3.4); Monocytes # (auto) 0.26 K/uL (0.11-0.59); Monocytes % (auto) 5.4 %; Neutrophils # (auto) 3.62 K/uL (1.4-6.5); Neutrophils % (auto) 74.6 %; RBC Morphology Unremarkable
--- NOTE | 2020-05-10 06:29 | Electrocardiogram Report ---
Test Reason : Blood Pressure : / mmHG Vent. Rate : 094 BPM Atrial Rate : 094 BPM P-R Int : 154 ms QRS Dur : 094 ms QT Int : 362 ms P-R-T Axes : 030 -29 -05 degrees QTc Int : 452 ms Normal sinus rhythm Nonspecific ST and T wave abnormality Abnormal ECG When compared with ECG of 16-APR-2017 11:21, Inverted T waves have replaced nonspecific T wave abnormality in Inferior leads Nonspecific T wave abnormality now evident in Anterolateral leads Confirmed by Tapan Mock ([id number]) on 05/10/2020 6:28:46 AM Referred By: REFERRED SELF Confirmed By:Tapan Mock
--- NOTE | 2020-05-10 07:42 | CT Scan Report ---
CT ANGIOGRAM OF THE CHEST CLINICAL HISTORY: Atypical chest pain POSSIBLE PULMONARY EMBOLISM COMPARISON STUDY: Chest x-ray dated 05/09/2020 TECHNIQUE: Following the IV administration of 117 mL of Optiray-320, CT angiogram of the thorax was p erformed from the thoracic inlet to the lung bases utilizing the pulmonary embolus protocol. Images a re reviewed in the axial, sagittal, and coronal planes. IV contrast was administered without complica tion. MIP imaging was performed. A dose lowering technique was utilized adhering to the principles o f ALARA. CT DOSE: 522.78 mGycm FINDINGS: There are borderline enlarged mediastinal and hilar lymph nodes. These are likely reactive There was no evidence of thoracic aortic dilatation. There were no pulmonary artery filling defects to indicate acute pulmonary embolism. No pleural effusions are visualized. There are extensive multifocal groundglass pulmonary opacities consistent with a multifocal pneumonia . The findings are consistent with although not specific for Covid 19 pneumonia. There are no significant pleural effusions. There is no pneumothorax. There is mild esophageal thickening. IMPRESSION: 1. No evidence of acute pulmonary embolism 2. Extensive bilateral pulmonary airspace opacities consistent with a multifocal pneumonia 3. Small hiatal hernia and mild esophageal wall thickening ACT 112: Negative or not required by law. Electronically signed by: Gary Ramirez M.D. 05/10/2020 7:40 AM
[2020-05-10] MEDS: POTASSIUM CHLORIDE 10 MEQ TABCR PO SCH ×2 (08:26→20:07)
[2020-05-10] MEDS: TOPIRAMATE 50 MG TAB PO SCH (08:27)
[2020-05-10] MEDS: dexAMETHasone 6 MG in SYRINGE 0 ML IV SCH (08:27)
[2020-05-10] MEDS: CETIRIZINE HCL 10 MG TABLET PO SCH ×2 (08:27→20:08)
[2020-05-10] MEDS: PANTOprazole 40 MG TAB PO SCH ×2 (08:27→20:08)
[2020-05-10] MEDS: PROPRANOLOL HCL 60 MG LA CAP PO SCH (08:28)
[2020-05-10] MEDS: OXYBUTYNIN CHLORIDE XL 5 MG TABCR PO SCH (08:28)
[2020-05-10] MEDS: ENOXAPARIN INJ 40 MG/0.4 ML SYR SQ SCH ×2 (08:28→20:07)
[2020-05-10] MEDS: OMEGA-3 (PURIFIED FISH OIL) 1 GM CAP PO SCH (08:28)
--- NOTE | 2020-05-10 12:03 | Hospitalist Progress Note ---
Date of Service May 10, 2020 Assessment & Plan (1) Acute respiratory failure with hypoxia: due to COVID 19 pneumonia currently stable on 10L oxymask if she gets worse then would place on Vapotherm which she was on initially after admission at risk of getting worse, 10 days into illness, CT chest shows impressive bilateral infiltrates repeat CXR in the morning (2) COVID-19: Dexamethasone 6mg IV daily Isolation precautions no role for plasma or Remdesivir given she is 10 days into illness she cannot eat or drink much, poor oral intake for days give NSS at 80cc/hr x 1 bag and reassess tomorrow with sore throat, worse now, likely from oxygen making her dry, give Magic Swizzle with diarrhea, also likely COVID, give Imodium PRN (3) Multifocal pneumonia: Elevated procalcitonin in setting of sudden worsening over last 2 days concerning for secondary bacterial infection Ceftriaxone 2g IV + Azithromycin 500mg IV x 7 days Dexamethasone 6mg IV daily at risk of further deterioration, monitor closely (4) 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: Continue cevimeline 30mg PO BID (5) Hyperactivity of bladder: Continue oxybutynin 15mg PO BID (6) Gastro-esophageal reflux disease without esophagitis: (7) Hypokalemia: low at 3.[address] 20mEq K in IV fluids at 80cc/hr Admission and Anticipated Discharge Date Admission Date: May 09, 2020 Subjective patent feeling okay but not great, c/o sore throat that seems to be worse as well as diarrhea she feels a little short of breath but by no means is she in distress she is requiring 10L oxymask her cough is dry, no chest pain, she confirms that she is about 10 days into her illness reviewed the chart from admission reviewed labs, WBC 4k, Hb 11, plts 180k K 3.4, Cr 0.59, BUN 11 she cannot eat or drink much at all, no appetite, denies loss of taste or smell will give some gentle IV fluids Review of Systems Review of Systems: All systems reviewed & are unremarkable except as noted in Subjective Constitutional: + fatigue and + weakness; no fever Ear, Nose, Mouth, Throat: + sore throat Respiratory: + cough, + dyspnea and + dyspnea on exertion; no chest congestion and no sputum production Cardiovascular: no chest pain, no palpitations and no edema Gastrointestinal: + early satiety and + diarrhea/loose stools; no abdominal pain, no nausea, no vomiting and no constipation Physical Exam Constitutional: well developed, + ill appearing and + disheveled; no acute distress Neck: trachea midline, no thyromegaly Respiratory: normal respiratory effort; no respiratory distress, no labored breathing, does not use accessory muscles and no cough Cardiovascular: RRR, no murmur, no edema Gastrointestinal (Abdomen): normal bowel sounds, soft, nontender, no hepatosplenomegaly Musculoskeletal: no cyanosis or clubbing, extremities motor strength 5/5 Skin: no rashes, warm and dry Neurologic: patellar DTR's 2+ bilat, sensation intact and PERRL, EOMI, accommodation nl, no face palsy, no dysarthria Psychiatric: A+Ox3, euthymic affect Lymphatic: no cervical or axillary lymphadenopathy Results & Data Results & Data ([facility]) Vital Signs (Past 12 Hours) Vital Signs Temp Pulse Pulse Resp BP Pulse Ox Pulse Ox 05/10/20 08:00 37.0 C 96 H 20 134/85 93 05/10/20 04:21 36.8 C 88 20 137/81 92 05/10/20 03:03 90 18 97 05/10/20 02:38 87 L 05/10/20 02:37 87 05/10/20 02:34 91 Laboratory Results Laboratory Results - last 24 hr 05/09/20 05/09/20 05/09/20 12:24 12:24 12:24 WBC 5.56 RBC 4.60 Hgb 13.2 Hct 38.6 MCV 83.9 MCH 28.7 MCHC 34.2 RDW Std Deviation 40.8 RDW Coeff of [place] 13.3 Plt Count 206 MPV 9.8 Immature Gran % (Auto) 0.2 Neut % (Auto) 76.4 Lymph % (Auto) 19.4 [place] % (Auto) 4.0 Eos % (Auto) 0.0 Baso % (Auto) 0.0 Neut # (Auto) 4.25 Lymph # (Auto) 1.08 L [place] # (Auto) 0.22 Eos # (Auto) 0.00 Baso # (Auto) 0.00 Immature Gran # (Auto) 0.01 RBC Morphology Unremarkable D-Dimer 700 H* Sodium 139 Potassium 3.1 L Chloride 110 H Carbon Dioxide 21 Anion Gap 8.0 BUN 14 Creatinine 0.86 Est Cr Clr Drug Dosing 88.4 Est GFR ( Amer) 88.8 Est GFR (Non-Af Amer) 76.6 BUN/Creatinine Ratio 15.8 Glucose 124 H Calcium 8.3 L Total Bilirubin 0.5 AST 31 ALT 17 Alkaline Phosphatase 37 L Troponin I < 0.015 C-Reactive Protein Total Protein 7.0 Albumin 2.9 L Globulin 4.1 H Albumin/Globulin Ratio 0.7 L Lipase 249 Procalcitonin COVID-19 Eval Order SARS-CoV-2 (PCR) Influenza Type A (PCR) Influenza Type B (PCR) RSV (RT-PCR) 05/09/20 05/09/20 05/09/20 12:24 12:24 13:57 WBC RBC Hgb Hct MCV MCH MCHC RDW Std Deviation RDW Coeff of [place] Plt Count MPV Immature Gran % (Auto) Neut % (Auto) Lymph % (Auto) [place] % (Auto) Eos % (Auto) Baso % (Auto) Neut # (Auto) Lymph # (Auto) [place] # (Auto) Eos # (Auto) Baso # (Auto) Immature Gran # (Auto) RBC Morphology D-Dimer Sodium Potassium Chloride Carbon Dioxide Anion Gap BUN Creatinine Est Cr Clr Drug Dosing Est GFR ( Amer) Est GFR (Non-Af Amer) BUN/Creatinine Ratio Glucose Calcium Total Bilirubin AST ALT Alkaline Phosphatase Troponin I C-Reactive Protein 10.50 H Total Protein Albumin Globulin Albumin/Globulin Ratio Lipase Procalcitonin 0.55 H COVID-19 Eval Order CovFluRsv at [facility] SARS-CoV-2 (PCR) Influenza Type A (PCR) Influenza Type B (PCR) RSV (RT-PCR) 05/09/20 05/10/20 05/10/20 13:57 05:27 05:27 WBC 4.85 RBC 4.14 L Hgb 11.7 L Hct 35.1 L MCV 84.8 MCH 28.3 MCHC 33.3 RDW Std Deviation 41.6 RDW Coeff of [place] 13.4 Plt Count 180 MPV 9.6 Immature Gran % (Auto) 0.0 Neut % (Auto) 74.6 Lymph % (Auto) 20.0 [place] % (Auto) 5.4 Eos % (Auto) 0.0 Baso % (Auto) 0.0 Neut # (Auto) 3.62 Lymph # (Auto) 0.97 L [place] # (Auto) 0.26 Eos # (Auto) 0.00 Baso # (Auto) 0.00 Immature Gran # (Auto) 0.00 RBC Morphology Unremarkable D-Dimer Sodium 143 Potassium 3.4 L Chloride 116 H Carbon Dioxide 22 Anion Gap 5.0 BUN 11 Creatinine 0.59 L Est Cr Clr Drug Dosing 130.9 Est GFR ( Amer) 120.4 Est GFR (Non-Af Amer) 103.9 BUN/Creatinine Ratio 18.1 Glucose 114 H Calcium 8.5 Total Bilirubin AST ALT Alkaline Phosphatase Troponin I C-Reactive Protein Total Protein Albumin Globulin Albumin/Globulin Ratio Lipase Procalcitonin COVID-19 Eval Order SARS-CoV-2 (PCR) POSITIVE A* Influenza Type A (PCR) Negative Influenza Type B (PCR) Negative RSV (RT-PCR) Negative Medications Administered Current Inpatient Medications Acetaminophen (Acetaminophen 325 Mg Tab) 650 mg PO Q4H PRN PRN Reason: Pain or Fever Stop: 06/08/20 17:11 Al Hydrox/Mg Hydrox/Simethicone (Aluminum/Magnesium Susp 30 Ml Udc) 15 ml PO Q4H PRN PRN Reason: Dyspepsia Stop: 06/08/20 17:11 Cetirizine HCl (Cetirizine Hcl 10 Mg Tablet) 10 mg PO BID [facility] Stop: 06/08/20 20:59 Last Admin: 05/10/20 08:27 Dose: 10 mg Documented by: Enoxaparin Sodium (Enoxaparin Inj 40 Mg/0.4 Ml Syr) 40 mg SQ BID [facility] Stop: 06/08/20 20:59 Last Admin: 05/10/20 08:28 Dose: 40 mg Documented by: Fish Oil ([place]-3 (Purified Fish Oil) 1 Gm Cap) 1 gm PO QAM [facility] Stop: 06/09/20 08:59 Last Admin: 05/10/20 08:28 Dose: 1 gm Documented by: Ceftriaxone Sodium 2,000 mg/ (Dextrose) 70 mls @ 100 mls/hr IV Q24H [facility]; Protocol Stop: 05/16/20 17:59 Last Infusion: 05/09/20 18:31 Dose: Infused Documented by: Azithromycin 250 mg/ Dextrose 252.5 mls @ 125 mls/hr IV Q24H [facility]; Protocol Stop: 05/17/20 16:59 Dexamethasone 6 mg/ Syringe 1.5 mls @ 1 mls/min IV QAM [facility] Stop: 05/19/20 08:59 Last Admin: 05/10/20 08:27 Dose: 1 mls/min Documented by: Melatonin (Melatonin 3 Mg Tab) 3 mg PO HS [facility]; Protocol Stop: 06/08/20 20:59 Last Admin: 05/09/20 20:30 Dose: 3 mg Documented by: Miscellaneous (Cevimeline: Order Awaiting Action) 1 ea N/A QS [facility] Stop: 06/09/20 17:59 Ondansetron HCl (Ondansetron Inj 2 Mg/Ml 2 Ml Vial) 4 mg IV Q6H PRN PRN Reason: Nausea Stop: 06/08/20 17:11 Oxybutynin Chloride (Oxybutynin Chloride Xl 5 Mg Tabcr) [facility]: 06/09/20 08:59 Last Admin: 05/10/20 08:28 Dose: 15 mg Documented by: Pantoprazole Sodium (Pantoprazole 40 Mg Tab) 40 mg PO BID [facility] Stop: 06/08/20 20:59 Last Admin: 05/10/20 08:27 Dose: 40 mg Documented by: Polyethylene Glycol (Polyethylene (Miralax) 17 Gm Pack) 17 gm PO DAILY PRN PRN Reason: Constipation Stop: 06/08/20 17:11 Potassium Chloride (Potassium Chloride 10 Meq Tabcr) 10 meq PO BID [facility] Stop: 06/09/20 08:59 Last Admin: 05/10/20 08:26 Dose: 10 meq Documented by: Propranolol HCl (Propranolol Hcl 60 Mg [place]) 60 [facility] [place] Stop: 06/09/20 08:59 Last Admin: 05/10/20 08:28 Dose: 60 mg Documented by: Sumatriptan Succinate (Sumatriptan Succinate 100 Mg Tab) 100 mg PO UD PRN PRN Reason: migraine headache Stop: 06/08/20 17:11 Topiramate (Topiramate 50 Mg Tab) 50 [facility] [place] Stop: 06/09/20 08:59 Last Admin: 05/10/20 08:27 Dose: 50 mg Documented by: Topiramate (Topiramate 100 Mg Tab) 50 mg PO QPM [facility] Stop: 06/08/20 20:59 Last Admin: 05/09/20 20:31 Dose: 50 mg Documented by: Trazodone HCl (Trazodone Hcl 100 Mg Tab) 100 mg PO [facility] Stop: 06/08/20 20:59 Last Admin: 05/09/20 20:30 Dose: 100 mg Documented by: Vitamin D (Cholecalciferol 1,000 Units 25 Mcg Tab) 5,000 units PO [facility] Stop: 06/08/20 20:59 Last Admin: 05/09/20 20:30 Dose: 5,000 units Documented by: PG Care Time/CCT Total # of Minutes Spent Total Time Spent with Patient: Total time spent is greater than 50% in coordination of care (as documented) at patient's floor/unit and/or counseling patient: Coding Level of Care Code 52398 Subseq Hosp Care Lvl 3 Diagnoses Acute respiratory failure with hypoxia J96.01 COVID-19 U07.1 Multifocal pneumonia J18.9 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
[2020-05-10] MEDS: AZITHROMYCIN 250 MG in DEXTROSE 5% 250 ML IV SCH (16:41)
[2020-05-10] MEDS: CEVIMELINE: ORDER AWAITING ACTION SCH ×2 (16:46→23:36)
[2020-05-10] MEDS ORDERED: LOPERAMIDE HCL 2 MG CAP PO PRN (18:04)
[2020-05-10] MEDS ORDERED: NSS + 20MEQ KCL 20 MEQ/1,000 ML BAG IV SCH (18:15)
[2020-05-10] MEDS: cefTRIAXone SODIUM 2,000 MG in DEXTROSE 5% 50 ML IV SCH (20:02)
[2020-05-10] MEDS: CHOLECALCIFEROL 1,000 UNITS 25 MCG TAB PO SCH (20:08)
[2020-05-10] MEDS: traZODone HCL 100 MG TAB PO SCH (20:08)
[2020-05-10] MEDS: MELATONIN 3 MG TAB PO SCH (20:09)
[2020-05-10] MEDS: TOPIRAMATE 100 MG TAB PO SCH (21:21)
[2020-05-11] MEDS: ONDANSETRON INJ 2 MG/ML 2 ML VIAL IV PRN (04:49)
[2020-05-11 07:18] LABS: Hematocrit (blood only) 34.8 % (37-47); Hemoglobin 11.8 g/dL (12.0-16.0); Mean Corpuscular Hemoglobin 28.5 pg (25-34); Mean Corpuscular Hgb Conc 33.9 g/dL (32-36); Mean Corpuscular Volume 84.1 fL (80-100); Mean Platelet Volume 9.5 fL (7.4-10.4); Platelet Count 262 K/uL (130-400); RDW Coefficient of Variation 13.4 % (11.5-14.5); Red Blood Count 4.14 M/uL (4.2-5.4); White Blood Count 6.54 K/uL (4.8-10.8)
[2020-05-11 07:44] LABS: BUN Creatinine Ratio 16.5 (10-20); Calcium 8.9 mg/dl (8.5-10.1); Creatinine Clr Calc Pharmacy 134.9 ml/min; Est GFR (African American) 121.8; Est GFR (Non-African American) 105.1; Potassium 3.4 mmol/L (3.5-5.1)
[2020-05-11] MEDS: POTASSIUM CHLORIDE 10 MEQ TABCR PO SCH ×2 (08:01→21:35)
[2020-05-11] MEDS: PANTOprazole 40 MG TAB PO SCH ×2 (08:01→21:36)
[2020-05-11] MEDS: TOPIRAMATE 50 MG TAB PO SCH (08:01)
[2020-05-11] MEDS: ENOXAPARIN INJ 40 MG/0.4 ML SYR SQ SCH ×2 (08:03→21:35)
[2020-05-11] MEDS: dexAMETHasone 6 MG in SYRINGE 0 ML IV SCH (08:04)
[2020-05-11] MEDS: CEVIMELINE: ORDER AWAITING ACTION SCH ×3 (08:04→23:23)
[2020-05-11] MEDS: PROPRANOLOL HCL 60 MG LA CAP PO SCH (08:04)
[2020-05-11] MEDS: OXYBUTYNIN CHLORIDE XL 5 MG TABCR PO SCH (08:05)
[2020-05-11] MEDS: OMEGA-3 (PURIFIED FISH OIL) 1 GM CAP PO SCH (08:05)
[2020-05-11] MEDS: CETIRIZINE HCL 10 MG TABLET PO SCH ×2 (08:09→21:37)
--- NOTE | 2020-05-11 09:27 | XRay Report ---
XR chest 1V portable CLINICAL HISTORY: COVID pneumonia COMPARISON STUDY: Chest radiograph and chest CT May 09, 2020 FINDINGS: Lung volumes are mildly diminished. There is no pneumothorax or pleural effusion. Cardiomed iastinal silhouette is stable. Extensive bilateral airspace opacities have progressed since prior rocael st radiograph and chest CT. IMPRESSION: Progression of extensive bilateral airspace opacities consistent with an infectious proc ess. ACT 112: Negative or not required by law. Electronically signed by: Tylor Phelan M.D. 05/11/2020 9:26 AM
--- NOTE | 2020-05-11 10:31 | Hospitalist Progress Note ---
Date of Service May 11, 2020 Assessment & Plan (1) Acute respiratory failure with hypoxia: due to COVID 19 pneumonia currently on 35L and 60% FiO2 at risk of getting worse, 10 days into illness, CT chest shows impressive bilateral infiltrates chest x-ray this morning with progression of infiltrates compared to two days ago strongly encouraged prone position, stressed how this can prevent mech ventilation which she hopes to avoid at all cost prognosis is guarded low threshold to move to PCU/ICU if she started to require more oxygen (2) COVID-19: Dexamethasone 6mg IV daily x 10 days, day 3 Isolation precautions no role for plasma or Remdesivir given she is 10 days into illness she cannot eat or drink much, poor oral intake for days give 500cc of NSS today and reassess tomorrow with sore throat resolved with diarrhea, also likely COVID, give Imodium PRN, less frequent stools today (3) Multifocal pneumonia: Elevated procalcitonin in setting of sudden worsening over last 2 days concerning for secondary bacterial infection Ceftriaxone 2g IV + Azithromycin 500mg IV x 7 days, day 3 Dexamethasone 6mg IV daily, day 3 at risk of further deterioration, monitor closely CXR on 05/11 with worsening infiltrates (4) 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: Continue cevimeline 30mg PO BID (5) Hyperactivity of bladder: Continue oxybutynin 15mg PO BID (6) Gastro-esophageal reflux disease without esophagitis: (7) Hypokalemia: low at 3.4 give 10mEq BID Admission and Anticipated Discharge Date Admission Date: May 09, 2020 Subjective patient on 35L and 60% FiO2 this morning, she is very fatigued, gets short of breath on exertion no fever/chills, no vomiting, diarrhea is better, sore throat resolved, minimal cough talked at length about the importance of laying prone, this can prevent need for mechanical ventilation she says she does not want intubated, at least she wants to avoid at all cost, I told her that prone position is the best way to prevent this she still has no appetite, getting down some Jello and fluids, ordered soup for lunch reviewed labs, K low at 3.4 but otherwise CBC and BMP stable called her to provide update Review of Systems Review of Systems: All systems reviewed & are unremarkable except as noted in Subjective Constitutional: + fatigue and + weakness; no fever and no sweats Respiratory: + cough, + dyspnea and + dyspnea on exertion; no chest con gestion, no pain with cough and no sputum production Cardiovascular: no chest pain and no edema Gastrointestinal: + diarrhea/loose stools; no abdominal pain, no nausea, no vomiting and no constipation Physical Exam Constitutional: well developed, + ill appearing and + disheveled; no acute distress Neck: trachea midline, no thyromegaly Respiratory: + tachypneic; no respiratory distress, no labored breathing, does not use accessory muscles and no cough Cardiovascular: RRR, no murmur, no edema Gastrointestinal (Abdomen): normal bowel sounds, soft, nontender, no hepatosplenomegaly Musculoskeletal: no cyanosis or clubbing, extremities motor strength 5/5 Skin: no rashes, warm and dry Neurologic: patellar DTR's 2+ bilat, sensation intact and PERRL, EOMI, accommodation nl, no face palsy, no dysarthria Psychiatric: A+Ox3, euthymic affect Lymphatic: no cervical or axillary lymphadenopathy Results & Data Results & Data ([facility]) Vital Signs (Past 12 Hours) Vital Signs Temp Pulse Pulse Resp BP Pulse Ox Pulse Ox 05/11/20 09:29 90 05/11/20 07:42 37.1 C 86 17 148/86 H 87 L 05/11/20 06:55 86 25 H 91 05/11/20 03:49 36.7 C 87 18 148/86 H 93 05/11/20 03:16 87 16 93 05/11/20 00:43 85 05/10/20 22:37 36.7 C 87 26 H 134/86 91 Laboratory Results Laboratory Results - last 24 hr 05/11/20 05/11/20 06:37 06:37 WBC 6.54 RBC 4.14 L Hgb 11.8 L Hct 34.8 L MCV 84.1 MCH 28.5 MCHC 33.9 RDW Std Deviation 41.0 RDW Coeff of [place] 13.4 Plt Count 262 MPV 9.5 Sodium 142 Potassium 3.4 L Chloride 115 H Carbon Dioxide 21 Anion Gap 7.0 BUN 9 Creatinine 0.57 L Est Cr Clr Drug Dosing 134.9 Est GFR ( Amer) 121.8 Est GFR (Non-Af Amer) 105.1 BUN/Creatinine Ratio 16.5 Glucose 99 Calcium 8.9 Medications Administered Current Inpatient Medications Acetaminophen (Acetaminophen 325 Mg Tab) 650 mg PO Q4H PRN PRN Reason: Pain or Fever Stop: 06/08/20 17:11 Al Hydrox/Mg Hydrox/Simethicone (Aluminum/Magnesium Susp 30 Ml Udc) 15 ml PO Q4H PRN PRN Reason: Dyspepsia Stop: 06/08/20 17:11 Cetirizine HCl (Cetirizine Hcl 10 Mg Tablet) 10 mg PO BID [facility] Stop: 06/08/20 20:59 Last Admin: 05/11/20 08:09 Dose: Not Given Documented by: Lidocaine HCl 60 ml/Diphenhydramine HCl 150 mg/ Al Hydrox/Mg Hydrox/Simethicone 60 ml/ Glycerin 60 ml/ [employer] 1 ea 0 ml PO Q4H PRN PRN Reason: Sore Throat Stop: 06/09/20 18:03 Enoxaparin Sodium (Enoxaparin Inj 40 Mg/0.4 Ml Syr) 40 mg SQ BID [facility] Stop: 06/08/20 20:59 Last Admin: 05/11/20 08:03 Dose: 40 mg Documented by: Fish Oil ([place]-3 (Purified Fish Oil) 1 Gm Cap) [facility] [place] Stop: 06/09/20 08:59 Last Admin: 05/11/20 08:05 Dose: 1 gm Documented by: Ceftriaxone Sodium 2,000 mg/ (Dextrose) 70 mls @ 100 mls/hr IV Q24H [facility]; Protocol Stop: 05/16/20 17:59 Last Infusion: 05/10/20 21:21 Dose: Infused Documented by: Azithromycin 250 mg/ Dextrose 252.5 mls @ 125 mls/hr IV Q24H [facility]; Protocol Stop: 05/17/20 16:59 Last Infusion: 05/10/20 20:03 Dose: Infused Documented by: Dexamethasone 6 mg/ Syringe 1.5 mls @ 1 mls/min IV QAM [facility] Stop: 05/19/20 08:59 Last Admin: 05/11/20 08:04 Dose: 1 mls/min Documented by: Loperamide HCl (Loperamide Hcl 2 Mg Cap) 2 mg PO Q6 PRN PRN Reason: Diarrhea Stop: 06/09/20 18:03 Melatonin (Melatonin 3 Mg Tab) 3 mg PO [facility]; Protocol Stop: 06/08/20 20:59 Last Admin: 05/10/20 20:09 Dose: 3 mg Documented by: Miscellaneous (Cevimeline: Order Awaiting Action) 1 ea N/A QS [facility] Stop: 06/09/20 17:59 Last Admin: 05/11/20 08:04 Dose: Not Given Documented by: Ondansetron HCl (Ondansetron Inj 2 Mg/Ml 2 Ml Vial) 4 mg IV Q6H PRN PRN Reason: Nausea Stop: 06/08/20 17:11 Last Admin: 05/11/20 04:49 Dose: 4 mg Documented by: Oxybutynin Chloride (Oxybutynin Chloride Xl 5 Mg Tabcr) 15 mg PO QAM [facility] Stop: 06/09/20 08:59 Last Admin: 05/11/20 08:05 Dose: 15 mg Documented by: Pantoprazole Sodium (Pantoprazole 40 Mg Tab) 40 mg PO BID [facility] Stop: 06/08/20 20:59 Last Admin: 05/11/20 08:01 Dose: 40 mg Documented by: Polyethylene Glycol (Polyethylene (Miralax) 17 Gm Pack) 17 gm PO DAILY PRN PRN Reason: Constipation Stop: 06/08/20 17:11 Potassium Chloride (Potassium Chloride 10 Meq Tabcr) 10 meq PO BID [facility] Stop: 06/09/20 08:59 Last Admin: 05/11/20 08:01 Dose: 10 meq Documented by: Propranolol HCl (Propranolol Hcl 60 Mg [place]) 60 mg PO QAM [facility] Stop: 06/09/20 08:59 Last Admin: 05/11/20 08:04 Dose: 60 mg Documented by: Sumatriptan Succinate (Sumatriptan Succinate 100 Mg Tab) 100 mg PO UD PRN PRN Reason: migraine headache Stop: 06/08/20 17:11 Topiramate (Topiramate 50 Mg Tab) 50 mg PO QAM [facility] Stop: 06/09/20 08:59 Last Admin: 05/11/20 08:01 Dose: 50 mg Documented by: Topiramate (Topiramate 100 Mg Tab) 50 mg PO QPM [facility] Stop: 06/08/20 20:59 Last Admin: 05/10/20 21:21 Dose: 50 mg Documented by: Trazodone HCl (Trazodone Hcl 100 Mg Tab) 100 mg PO HS [facility] Stop: 06/08/20 20:59 Last Admin: 05/10/20 20:08 Dose: 100 mg Documented by: Vitamin D (Cholecalciferol 1,000 Units 25 Mcg Tab) 5,000 units PO HS [facility] Stop: 06/08/20 20:59 Last Admin: 05/10/20 20:08 Dose: 5,000 units Documented by: PG Care Time/CCT Total # of Minutes Spent Total Time Spent with Patient: Total time spent is greater than 50% in coordination of care (as documented) at patient's floor/unit and/or counseling patient: Coding Level of Care Code 81170 Subseq Hosp Care Lvl 3 Diagnoses Acute respiratory failure with hypoxia J96.01 COVID-19 U07.1 Multifocal pneumonia J18.9 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
[2020-05-11] MEDS: AZITHROMYCIN 250 MG in DEXTROSE 5% 250 ML IV SCH (16:50)
[2020-05-11 17:46] LABS: Appearance Urine Clear (Clear); Bacteria Urine Automated Negative (Negative); Bilirubin Urine Negative (Negative); Blood Urine Negative (Negative); Color Urine Yellow; Epithelial Cell Urine Auto >30 /lpf (0-5); Glucose Urine UA Negative (Negative); Ketones Urine Negative (Negative); Leukocyte Esterase Urine Negative (Negative); Nitrite Urine Negative (Negative); Protein Urine 1+ (Negative); Urobilinogen Urine Negative (Negative)
[2020-05-11] MEDS: cefTRIAXone SODIUM 2,000 MG in DEXTROSE 5% 50 ML IV SCH (18:25)
[2020-05-11] MEDS: traZODone HCL 100 MG TAB PO SCH (21:35)
[2020-05-11] MEDS: MELATONIN 3 MG TAB PO SCH (21:36)
[2020-05-11] MEDS: CHOLECALCIFEROL 1,000 UNITS 25 MCG TAB PO SCH (21:37)
[2020-05-11] MEDS: TOPIRAMATE 100 MG TAB PO SCH (21:37)
[2020-05-12 06:57] LABS: Creatinine Clr Calc Pharmacy 120.2 ml/min; Est GFR (African American) 117.3; Est GFR (Non-African American) 101.2
[2020-05-12] MEDS: dexAMETHasone 6 MG in SYRINGE 0 ML IV SCH (08:40)
[2020-05-12] MEDS: CEVIMELINE: ORDER AWAITING ACTION SCH ×2 (08:41→15:29)
[2020-05-12] MEDS: ENOXAPARIN INJ 40 MG/0.4 ML SYR SQ SCH ×2 (08:41→20:39)
[2020-05-12] MEDS: POTASSIUM CHLORIDE 10 MEQ TABCR PO SCH ×2 (08:41→20:38)
[2020-05-12] MEDS: PROPRANOLOL HCL 60 MG LA CAP PO SCH (08:42)
[2020-05-12] MEDS: CETIRIZINE HCL 10 MG TABLET PO SCH ×2 (08:42→20:41)
[2020-05-12] MEDS: TOPIRAMATE 50 MG TAB PO SCH (08:42)
[2020-05-12] MEDS: OMEGA-3 (PURIFIED FISH OIL) 1 GM CAP PO SCH (08:42)
[2020-05-12] MEDS: PANTOprazole 40 MG TAB PO SCH ×2 (08:42→20:39)
[2020-05-12] MEDS: OXYBUTYNIN CHLORIDE XL 5 MG TABCR PO SCH (08:43)
--- NOTE | 2020-05-12 10:13 | Hospitalist Progress Note ---
Date of Service May 12, 2020 Assessment & Plan (1) Acute respiratory failure with hypoxia: due to COVID 19 pneumonia currently on 30L and 60% FiO2, a little better than yesterday CT chest shows impressive bilateral infiltrates chest x-ray 05/11 with progression of infiltrates compared to two days prior strongly encouraged prone position, stressed how this can prevent mech ventilation which she hopes to avoid at all cost prognosis is guarded but a little improved today low threshold to move to PCU/ICU if she started to require more oxygen but she is stable today (2) COVID-19: Dexamethasone 6mg IV daily x 10 days, day 4 Isolation precautions no role for plasma or Remdesivir given she is 10 days into illness she cannot eat or drink much, poor oral intake for days gave 500cc of NSS 05/11, drinking a little better today with sore throat, resolved with diarrhea, also likely COVID, give Imodium PRN, resolved (3) Multifocal pneumonia: Elevated procalcitonin in setting of sudden worsening over last 2 days concerning for secondary bacterial infection Ceftriaxone 2g IV + Azithromycin 500mg IV x 7 days, day 4 Dexamethasone 6mg IV daily, day 4 at risk of further deterioration, monitor closely CXR on 05/11 with worsening infiltrates (4) 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: Continue cevimeline 30mg PO BID (5) Hyperactivity of bladder: Continue oxybutynin 15mg PO BID (6) Gastro-esophageal reflux disease without esophagitis: (7) Hypokalemia: low at 3.4 give 10mEq BID check BMP tomorrow Admission and Anticipated Discharge Date Admission Date: May 09, 2020 Subjective patient is down to 30L and 60% no labs today eating a little more, drinking a little more no further diarrhea, making urine although output is a little low she is more compliant with laying on her side, almost prone no fever/chills, has a dry cough, no chest pain she is more optimistic today, feels a little better in general Review of Systems Review of Systems: All systems reviewed & are unremarkable except as noted in Subjective Physical Exam Constitutional: well developed, + ill appearing and + disheveled; no acute distress Neck: trachea midline, no thyromegaly Respiratory: normal respiratory effort; no respiratory distress, no labored breathing, does not use accessory muscles and no cough Cardiovascular: RRR, no murmur, no edema Gastrointestinal (Abdomen): normal bowel sounds, soft, nontender, no hepatosplenomegaly Musculoskeletal: no cyanosis or clubbing, extremities motor strength 5/5 Skin: no rashes, warm and dry Neurologic: patellar DTR's 2+ bilat, sensation intact and PERRL, EOMI, accommodation nl, no face palsy, no dysarthria Psychiatric: A+Ox3, euthymic affect Lymphatic: no cervical or axillary lymphadenopathy Results & Data Results & Data ([facility]) Vital Signs (Past 12 Hours) Vital Signs Temp Pulse Pulse Pulse Resp BP Pulse Ox 05/12/20 07:47 36.8 C 79 20 123/80 91 05/12/20 07:20 85 32 H 91 05/12/20 03:53 36.8 C 83 22 130/75 91 05/12/20 03:44 86 L 05/12/20 02:26 72 22 91 05/12/20 00:49 73 05/12/20 00:02 37.0 C 76 22 129/75 91 05/11/20 23:14 60 24 95 Laboratory Results Laboratory Results - last 24 hr 05/11/20 05/12/20 16:50 06:13 Creatinine 0.64 Est Cr Clr Drug Dosing 120.2 Est GFR ( Amer) 117.3 Est GFR (Non-Af Amer) 101.2 Urine Color Yellow Urine Appearance Clear Urine pH 7.0 Ur Specific [place] 1.020 Urine Protein 1+ H Urine Glucose (UA) Negative Urine Ketones Negative Urine Blood Negative Urine Nitrite Negative Urine Bilirubin Negative Urine Urobilinogen Negative Ur Leukocyte Esterase Negative Urine WBC (Auto) 1-5 Urine RBC (Auto) 5-10 H U Hyaline Cast (Auto) 1-5 U Epithel Cells (Auto) >30 H Urine Bacteria (Auto) Negative Medications Administered Current Inpatient Medications Acetaminophen (Acetaminophen 325 Mg Tab) 650 mg PO Q4H PRN PRN Reason: Pain or Fever Stop: 06/08/20 17:11 Al Hydrox/Mg Hydrox/Simethicone (Aluminum/Magnesium Susp 30 Ml Udc) 15 ml PO Q4H PRN PRN Reason: Dyspepsia Stop: 06/08/20 17:11 Cetirizine HCl (Cetirizine Hcl 10 Mg Tablet) 10 mg PO BID [facility] Stop: 06/08/20 20:59 Last Admin: 05/12/20 08:42 Dose: 10 mg Documented by: Lidocaine HCl 60 ml/Diphenhydramine HCl 150 mg/ Al Hydrox/Mg Hydrox/Simethicone 60 ml/ Glycerin 60 ml/ BARCODE IDENTIFIER 1 ea 0 ml PO Q4H PRN PRN Reason: Sore Throat Stop: 06/09/20 18:03 Enoxaparin Sodium (Enoxaparin Inj 40 Mg/0.4 Ml Syr) 40 mg SQ BID [facility] Stop: 06/08/20 20:59 Last Admin: 05/12/20 08:41 Dose: 40 mg Documented by: Fish Oil ([place]-3 (Purified Fish Oil) 1 Gm Cap) [facility] [place] Stop: 06/09/20 08:59 Last Admin: 05/12/20 08:42 Dose: 1 gm Documented by: Ceftriaxone Sodium 2,000 mg/ (Dextrose) 70 mls @ 100 mls/hr IV Q24H [facility]; Protocol Stop: 05/16/20 17:59 Last Infusion: 05/11/20 19:50 Dose: Infused Documented by: Azithromycin 250 mg/ Dextrose 252.5 mls @ 125 mls/hr IV Q24H [facility]; Protocol Stop: 05/17/20 16:59 Last Infusion: 05/11/20 18:30 Dose: Infused Documented by: Dexamethasone 6 mg/ Syringe 1.5 mls @ 1 mls/[facility] [place] Stop: 05/19/20 08:59 Last Admin: 05/12/20 08:40 Dose: 1 mls/min Documented by: Loperamide HCl (Loperamide Hcl 2 Mg Cap) 2 mg PO Q6 PRN PRN Reason: Diarrhea Stop: 06/09/20 18:03 Melatonin (Melatonin 3 Mg Tab) 3 mg PO [facility]; Protocol Stop: 06/08/20 20:59 Last Admin: 05/11/20 21:36 Dose: 3 mg Documented by: Miscellaneous (Cevimeline: Order Awaiting Action) 1 ea N/A QS [facility] Stop: 06/09/20 17:59 Last Admin: 05/12/20 08:41 Dose: Not Given Documented by: Ondansetron HCl (Ondansetron Inj 2 Mg/Ml 2 Ml Vial) 4 mg IV Q6H PRN PRN Reason: Nausea Stop: 06/08/20 17:11 Last Admin: 05/11/20 04:49 Dose: 4 mg Documented by: Oxybutynin Chloride (Oxybutynin Chloride Xl 5 Mg Tabcr) 15 mg PO QAM [facility] Stop: 06/09/20 08:59 Last Admin: 05/12/20 08:43 Dose: 15 mg Documented by: Pantoprazole Sodium (Pantoprazole 40 Mg Tab) 40 mg PO BID [facility] Stop: 06/08/20 20:59 Last Admin: 05/12/20 08:42 Dose: 40 mg Documented by: Polyethylene Glycol (Polyethylene (Miralax) 17 Gm Pack) 17 gm PO DAILY PRN PRN Reason: Constipation Stop: 06/08/20 17:11 Potassium Chloride (Potassium Chloride 10 Meq Tabcr) 10 meq PO BID [facility] Stop: 06/09/20 08:59 Last Admin: 05/12/20 08:41 Dose: 10 meq Documented by: Propranolol HCl (Propranolol Hcl 60 Mg [place]) 60 mg PO QAM [facility] Stop: 06/09/20 08:59 Last Admin: 05/12/20 08:42 Dose: 60 mg Documented by: Sumatriptan Succinate (Sumatriptan Succinate 100 Mg Tab) 100 mg PO UD PRN PRN Reason: migraine headache Stop: 06/08/20 17:11 Topiramate (Topiramate 50 Mg Tab) 50 mg PO QAM [facility] Stop: 06/09/20 08:59 Last Admin: 05/12/20 08:42 Dose: 50 mg Documented by: Topiramate (Topiramate 100 Mg Tab) 50 mg PO QPM [facility] Stop: 06/08/20 20:59 Last Admin: 05/11/20 21:37 Dose: 50 mg Documented by: Trazodone HCl (Trazodone Hcl 100 Mg Tab) 100 mg PO [facility] Stop: 06/08/20 20:59 Last Admin: 05/11/20 21:35 Dose: 100 mg Documented by: Vitamin D (Cholecalciferol 1,000 Units 25 Mcg Tab) 5,000 units PO [facility] Stop: 06/08/20 20:59 Last Admin: 05/11/20 21:37 Dose: 5,000 units Documented by: PG Care Time/CCT Total # of Minutes Spent Total Time Spent with Patient: Total time spent is greater than 50% in coordination of care (as documented) at patient's floor/unit and/or counseling patient: Coding Level of Care Code 36201 Subseq Hosp Care Lvl 3 Diagnoses Acute respiratory failure with hypoxia J96.01 COVID-19 U07.1 Multifocal pneumonia J18.9 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
[2020-05-12] MEDS: cefTRIAXone SODIUM 2,000 MG in DEXTROSE 5% 50 ML IV SCH (17:13)
[2020-05-12] MEDS: AZITHROMYCIN 250 MG in DEXTROSE 5% 250 ML IV SCH (18:14)
[2020-05-12] MEDS: traZODone HCL 100 MG TAB PO SCH (20:38)
[2020-05-12] MEDS: MELATONIN 3 MG TAB PO SCH (20:39)
[2020-05-12] MEDS: TOPIRAMATE 100 MG TAB PO SCH (20:41)
[2020-05-12] MEDS: CHOLECALCIFEROL 1,000 UNITS 25 MCG TAB PO SCH (20:41)
[2020-05-12] MEDS: ONDANSETRON INJ 2 MG/ML 2 ML VIAL IV PRN (20:42)
[2020-05-13] MEDS: CEVIMELINE: ORDER AWAITING ACTION SCH ×3 (00:29→15:01)
[2020-05-13] MEDS: ONDANSETRON INJ 2 MG/ML 2 ML VIAL IV PRN ×3 (03:44→19:35)
[2020-05-13 06:39] LABS: Hematocrit (blood only) 35.2 % (37-47); Hemoglobin 11.9 g/dL (12.0-16.0); Mean Corpuscular Hemoglobin 28.7 pg (25-34); Mean Corpuscular Hgb Conc 33.8 g/dL (32-36); Mean Corpuscular Volume 84.8 fL (80-100); Mean Platelet Volume 9.6 fL (7.4-10.4); Platelet Count 360 K/uL (130-400); RDW Coefficient of Variation 13.2 % (11.5-14.5); RDW Standard Deviation 40.8 fL (36.4-46.3); Red Blood Count 4.15 M/uL (4.2-5.4); White Blood Count 7.85 K/uL (4.8-10.8)
[2020-05-13 07:07] LABS: BUN Creatinine Ratio 17.3 (10-20); Calcium 9.1 mg/dl (8.5-10.1); Creatinine Clr Calc Pharmacy 118.1 ml/min; Est GFR (African American) 116.7; Est GFR (Non-African American) 100.7; Magnesium 2.3 mg/dl (1.8-2.4); Potassium 3.3 mmol/L (3.5-5.1)
[2020-05-13 07:09] LABS: Phosphorus 2.4 mg/dl (2.5-4.9)
[2020-05-13] MEDS ORDERED: POTASSIUM PHOS 3 MMOL/1 ML INFUSION IV STA (07:38)
[2020-05-13] MEDS ORDERED: POTASSIUM PHOSPHATE 21 MMOL in SODIUM CHLORIDE 0.9% 500 ML IV ONE (08:00)
[2020-05-13] MEDS: dexAMETHasone 6 MG in SYRINGE 0 ML IV SCH (08:27)
[2020-05-13] MEDS: ENOXAPARIN INJ 40 MG/0.4 ML SYR SQ SCH ×2 (08:27→21:42)
[2020-05-13] MEDS: OXYBUTYNIN CHLORIDE XL 5 MG TABCR PO SCH (08:28)
[2020-05-13] MEDS: TOPIRAMATE 50 MG TAB PO SCH (08:28)
[2020-05-13] MEDS: CETIRIZINE HCL 10 MG TABLET PO SCH ×2 (08:28→21:42)
[2020-05-13] MEDS: OMEGA-3 (PURIFIED FISH OIL) 1 GM CAP PO SCH (08:28)
[2020-05-13] MEDS: PROPRANOLOL HCL 60 MG LA CAP PO SCH (08:28)
[2020-05-13] MEDS: PANTOprazole 40 MG TAB PO SCH ×2 (08:28→21:41)
[2020-05-13] MEDS: POTASSIUM CHLORIDE 10 MEQ TABCR PO SCH ×2 (08:28→21:40)
[2020-05-13] MEDS: AZITHROMYCIN 250 MG in DEXTROSE 5% 250 ML IV SCH (16:29)
[2020-05-13] MEDS: cefTRIAXone SODIUM 2,000 MG in DEXTROSE 5% 50 ML IV SCH (18:24)
[2020-05-13] MEDS: traZODone HCL 100 MG TAB PO SCH (21:40)
[2020-05-13] MEDS: MELATONIN 3 MG TAB PO SCH (21:41)
[2020-05-13] MEDS: CHOLECALCIFEROL 1,000 UNITS 25 MCG TAB PO SCH (21:42)
[2020-05-13] MEDS: TOPIRAMATE 100 MG TAB PO SCH (21:43)
--- NOTE | 2020-05-13 22:06 | Hospitalist Progress Note ---
Date of Service May 13, 2020 Assessment & Plan (1) Acute respiratory failure with hypoxia: due to COVID 19 pneumonia currently on 35L and 60% FiO2 down from 70% FiO2, having a lot of success with laying prone today encouraged her to continue this to avoid need for intubation CT chest shows impressive bilateral infiltrates chest x-ray 05/11 with progression of infiltrates compared to two days prior will repeat CXR tomorrow morning prognosis is guarded but a little improved today low threshold to move to PCU/ICU if she started to require more oxygen but she is stable today (2) COVID-19: Dexamethasone 6mg IV daily x 10 days, day 5 Isolation precautions no role for plasma or Remdesivir given she is 10 days into illness she cannot eat or drink much, poor oral intake for days gave 500cc of NSS 05/11, drinking a little better past two days with sore throat, resolved with diarrhea, also likely COVID, give Imodium PRN, resolved (3) Multifocal pneumonia: Elevated procalcitonin in setting of sudden worsening over last 2 days concerning for secondary bacterial infection Ceftriaxone 2g IV + Azithromycin 500mg IV x 7 days, day 5 Dexamethasone 6mg IV daily, day 5 at risk of further deterioration, monitor closely CXR on 05/11 with worsening infiltrates (4) 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: Continue cevimeline 30mg PO BID (5) Hyperactivity of bladder: Continue oxybutynin 15mg PO BID (6) Gastro-esophageal reflux disease without esophagitis: Continue pantoprazole 40mg PO BID (7) Hypokalemia: low at 3.3 Phos low as well replaced with K Phos 21mmol IV check BMP tomorrow Admission and Anticipated Discharge Date Admission Date: May 09, 2020 Subjective patient did well today, laying prone for two hours, she was at 35L, went from 70% to 60% FiO2 while prone eating and drinking a little bit more today dry cough, no fever, no diarrhea labs show K and phos slightly low, replaced with K Phos IV WBC normal, Hb stable, Cr stable Review of Systems Review of Systems: All systems reviewed & are unremarkable except as noted in Subjective Constitutional: + fatigue and + weakness; no fever Respiratory: + cough, + dyspnea and + dyspnea on exertion; no sputum production and no wheezing Cardiovascular: no chest pain, no palpitations, no syncope and no edema Gastrointestinal: + early satiety; no abdominal pain, no nausea, no vomiting, no constipation and no diarrhea/loose stools Physical Exam Constitutional: well developed, + ill appearing and + disheveled; no acute distress Neck: trachea midline, no thyromegaly Respiratory: normal respiratory effort; no respiratory distress, no labored breathing, does not use accessory muscles and no cough Cardiovascular: RRR, no murmur, no edema Gastrointestinal (Abdomen): normal bowel sounds, soft, nontender, no hepatosplenomegaly Musculoskeletal: no cyanosis or clubbing, extremities motor strength 5/5 Skin: no rashes, warm and dry Neurologic: patellar DTR's 2+ bilat, sensation intact and PERRL, EOMI, accommodation nl, no face palsy, no dysarthria Psychiatric: A+Ox3, euthymic affect Lymphatic: no cervical or axillary lymphadenopathy Results & Data Results & Data ([facility]) Vital Signs (Past 12 Hours) Vital Signs Temp Pulse Pulse Pulse Resp BP Pulse Ox 05/13/20 19:33 36.9 C 65 16 117/72 92 05/13/20 19:17 67 30 H 84 L 05/13/20 18:33 74 20 126/83 87 L 05/13/20 16:36 36.7 C 73 18 127/54 L 91 05/13/20 16:30 76 05/13/20 15:00 78 36 H 91 05/13/20 11:38 74 36 H 90 05/13/20 10:50 79 05/13/20 10:49 36.9 C 80 20 121/79 90 Pulse Ox 05/13/20 19:33 05/13/20 19:17 05/13/20 18:33 05/13/20 16:36 05/13/20 16:30 92 05/13/20 15:00 05/13/20 11:38 05/13/20 10:50 05/13/20 10:49 Laboratory Results Laboratory Results - last 24 hr 05/13/20 05/13/20 06:06 06:06 WBC 7.85 RBC 4.15 L Hgb 11.9 L Hct 35.2 L MCV 84.8 MCH 28.7 MCHC 33.8 RDW Std Deviation 40.8 RDW Coeff of Quoc 13.2 Plt Count 360 MPV 9.6 Sodium 142 Potassium 3.3 L Chloride 112 H Carbon Dioxide 22 Anion Gap 7.0 BUN 11 Creatinine 0.65 Est Cr Clr Drug Dosing 118.1 Est GFR ( Amer) 116.7 Est GFR (Non-Af Amer) 100.7 BUN/Creatinine Ratio 17.3 Glucose 87 Calcium 9.1 Phosphorus 2.4 L Magnesium 2.3 Medications Administered Current Inpatient Medications Acetaminophen (Acetaminophen 325 Mg Tab) 650 mg PO Q4H PRN PRN Reason: Pain or Fever Stop: 06/08/20 17:11 Al Hydrox/Mg Hydrox/Simethicone (Aluminum/Magnesium Susp 30 Ml Udc) 15 ml PO Q4H PRN PRN Reason: Dyspepsia Stop: 06/08/20 17:11 Cetirizine HCl (Cetirizine Hcl 10 Mg Tablet) 10 mg PO BID [facility] Stop: 06/08/20 20:59 Last Admin: 05/13/20 21:42 Dose: 10 mg Documented by: Lidocaine HCl 60 ml/Diphenhydramine HCl 150 mg/ Al Hydrox/Mg Hydrox/Simethicone 60 ml/ Glycerin 60 ml/ BARCODE IDENTIFIER 1 ea 0 ml PO Q4H PRN PRN Reason: Sore Throat Stop: 06/09/20 18:03 Enoxaparin Sodium (Enoxaparin Inj 40 Mg/0.4 Ml Syr) 40 mg SQ BID [facility] Stop: 06/08/20 20:59 Last Admin: 05/13/20 21:42 Dose: 40 mg Documented by: Fish Oil ([place]-3 (Purified Fish Oil) 1 Gm Cap) 1 gm PO QAM [facility] Stop: 06/09/20 08:59 Last Admin: 05/13/20 08:28 Dose: 1 gm Documented by: Ceftriaxone Sodium 2,000 mg/ (Dextrose) 70 mls @ 100 mls/hr IV Q24H [facility]; Protocol Stop: 05/16/20 17:59 Last Infusion: 05/13/20 19:10 Dose: Infused Documented by: Azithromycin 250 mg/ Dextrose 252.5 mls @ 125 mls/hr IV Q24H [facility]; Protocol Stop: 05/17/20 16:59 Last Infusion: 05/13/20 18:24 Dose: Infused Documented by: Dexamethasone 6 mg/ Syringe 1.5 mls @ 1 mls/min IV QAM [facility] Stop: 05/19/20 08:59 Last Admin: 05/13/20 08:27 Dose: 1 mls/min Documented by: Loperamide HCl (Loperamide Hcl 2 Mg Cap) 2 mg PO Q6 PRN PRN Reason: Diarrhea Stop: 06/09/20 18:03 Melatonin (Melatonin 3 Mg Tab) 3 mg PO HS [facility]; Protocol Stop: 06/08/20 20:59 Last Admin: 05/13/20 21:41 Dose: 3 mg Documented by: Miscellaneous (Cevimeline: Order Awaiting Action) 1 ea N/A QS [facility] Stop: 06/09/20 17:59 Last Admin: 05/13/20 15:01 Dose: Not Given Documented by: Ondansetron HCl (Ondansetron Inj 2 Mg/Ml 2 Ml Vial) 4 mg IV Q6H PRN PRN Reason: Nausea Stop: 06/08/20 17:11 Last Admin: 05/13/20 19:35 Dose: 4 mg Documented by: Oxybutynin Chloride (Oxybutynin Chloride Xl 5 Mg Tabcr) [facility] Stop: 06/09/20 08:59 Last Admin: 05/13/20 08:28 Dose: 15 mg Documented by: Pantoprazole Sodium (Pantoprazole 40 Mg Tab) 40 mg PO BID [facility] Stop: 06/08/20 20:59 Last Admin: 05/13/20 21:41 Dose: 40 mg Documented by: Polyethylene Glycol (Polyethylene (Miralax) 17 Gm Pack) 17 gm PO DAILY PRN PRN Reason: Constipation Stop: 06/08/20 17:11 Potassium Chloride (Potassium Chloride 10 Meq Tabcr) 10 meq PO BID [facility] Stop: 06/09/20 08:59 Last Admin: 05/13/20 21:40 Dose: 10 meq Documented by: Propranolol HCl (Propranolol Hcl 60 Mg [place]) 60 mg PO QAM [facility] Stop: 06/09/20 08:59 Last Admin: 05/13/20 08:28 Dose: 60 mg Documented by: Sumatriptan Succinate (Sumatriptan Succinate 100 Mg Tab) 100 mg PO UD PRN PRN Reason: migraine headache Stop: 06/08/20 17:11 Topiramate (Topiramate 50 Mg Tab) [facility] Stop: 06/09/20 08:59 Last Admin: 05/13/20 08:28 Dose: 50 mg Documented by: Topiramate (Topiramate 100 Mg Tab) 50 mg PO QPM [facility] Stop: 06/08/20 20:59 Last Admin: 05/13/20 21:43 Dose: 50 mg Documented by: Trazodone HCl (Trazodone Hcl 100 Mg Tab) 100 mg PO [facility] Stop: 06/08/20 20:59 Last Admin: 05/13/20 21:40 Dose: 100 mg Documented by: Vitamin D (Cholecalciferol 1,000 Units 25 Mcg Tab) 5,000 units PO [facility] Stop: 06/08/20 20:59 Last Admin: 05/13/20 21:42 Dose: 5,000 units Documented by: PG Care Time/CCT Total # of Minutes Spent Total Time Spent with Patient: Total time spent is greater than 50% in coordination of care (as documented) at patient's floor/unit and/or counseling patient: Coding Level of Care Code 24987 Subseq Hosp Care Lvl 3 Diagnoses Acute respiratory failure with hypoxia J96.01 COVID-19 U07.1 Multifocal pneumonia J18.9 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
--- NOTE | 2020-05-14 08:43 | Critical Care Consultation ---
Date of Consultation May 14, 2020 Assessment & Plan (1) Pneumonia due to COVID-19 virus: Reason Critically Ill: 54-year-old obese female admitted on 05/09 for COVID-19 pneumonia; admitted to the ICU on 05/14 for acute hypoxic respiratory failure. Intubated/sedated. Neuro - [facility] ICU: unobtainable - sedated - continue Propofol/Fentanyl for sedation while intubated - continue Nimbex for NMBA - continue routine RASS/BIS assessments - migraines: continue home Topiramate 50mg PO BID Cardiac - right subclavian central venous catheter as well as right radial arterial line placed today - hemodynamically stable on current ventilator settings - NSR on monitor - continue close monitoring while in ICU Respiratory - acute hypoxic respiratory failure due to COVID-19 PNA - intubated/sedated and transferred to ICU - CXR 05/14 showing persistent multifocal airspace opacities - ABG today AM showing 7.48/30/80/22; ABG later in the AM via a-line showing 7.26/55/151/25 - supports development of acute hypoxic RF 2/2 COVID - current vent settings: AC/16/380/18/50, Pplat 34, P:F ratio 302 - continue ARDSnet protocol - continue sedation with Propofol/Fentanyl - continue NMBA - Nimbex - proning therapy today x18 hours, continue GI - NPO - no issues at this time RENAL/LYTES - K 3.6, dehydrated due to tachypnea/infection, acidotic per ABG (above) - started Potassium acetate/NSS x2 bags (110cc) to infuse today - No other significant electrolyte derangement - Renal function intact - Replace lytes as needed - No concerns at this time, continue reyes - strict I/Os ENDO - prediabetes (A1c 5.8 on 03/01/2020), no thyroid disease - no concerns at this time HEME - Stable H&H, continue to monitor - started on COVID-19 Lovenox dosing (40mg SQ Q12H) - continue ID - COVID-19 PNA - continue Dexamethasone 6mg IV x10 days (today is day 5) - elevated procalcitonin of 0.55 on 05/09 in the setting of rapid worsening of respiratory status concerning for superimposed bacterial pneumonia - continue Azithromycin/Ceftriaxone x7 days (today is day 6) - Monitor fever curve LINES/IV ACCESS - R subclavian CVC, R radial a-line, PIV, reyes intact DVT PROPHYLAXIS - Lovenox 40mg SQ Q12H as above GI ppx: Pantoprazole 40mg IV daily CODE STATUS: full code Thank you for allowing us to be part of this patient's care. Please refer to Dr. De Jesus's documentation for any further recommendations. (2) Multifocal pneumonia: (3) DVT prophylaxis: (4) Acute respiratory failure with hypoxia: History of Present Illness Reason for Consultation: COVID-19 PNA with respiratory decompensation Requesting Physician: Doug Zee DO Attending Physician: Doug Zee DO History of Present Illness Rosa Yates is a 54 yo female with PMHx that includes obesity, prediabetes and migraines who was admitted to [facility] on 05/09 for COVID-19 pneumonia (day 15 from symptom onset). Her respiratory status has been declining, despite maximal settings on BiPAP, and we were consulted due to concern of need for intubation and close monitoring in the ICU. The patient reports feeling short of breath and tired/fatigued this morning, despite maximal BiPAP settings. Denies fever/chills, chest pain, N/V, abdominal pain. Allergies Allergy/AdvReac Type Severity Reaction Status Date / Time adhesive AdvReac Mild Rash Uncoded 05/09/20 13:38 Home Medications Medication Instructions Recorded Confirmed Type cetirizine 10 mg tablet 10 mg PO BID 12/17/19 05/09/20 History cholecalciferol (vitamin D3) 50 5,000 units PO HS tab 12/17/19 05/09/20 History mcg (2,000 unit) tablet sumatriptan succinate 100 mg tablet 100 mg PO UD PRN tab 12/17/19 05/09/20 History valacyclovir 1 gram tablet 2,000 mg PO DAILY PRN #12 tab 01/05/20 05/09/20 Rx Fish Oil Extra Strength 2 cap PO QAM 04/20/20 05/09/20 History cevimeline 30 mg PO BID 04/20/20 05/09/20 History pantoprazole 40 mg PO BID 04/20/20 05/09/20 History propranolol 60 mg PO QAM 04/20/20 05/09/20 History topiramate [Topamax] 50 - 100 mg PO BID 04/20/20 05/09/20 History trazodone 50 - 100 mg PO HS PRN 04/20/20 05/09/20 History albuterol sulfate 1 inh INHALATION Q4H PRN #8.5 g 05/07/20 05/09/20 Rx doxycycline hyclate 100 mg PO BID 7 Days #14 cap 05/07/20 05/09/20 Rx promethazine 25 mg PO QID PRN #20 tab 05/07/20 05/09/20 Rx melatonin 5 mg PO HS 05/09/20 05/09/20 History oxybutynin chloride 15 mg PO QAM 05/09/20 05/09/20 History Patient History Medical History GERD (gastroesophageal reflux disease) Herpes simplex Hx of migraines Kidney stones Migraine without aura, not intractable, without status migrainosus propranolol for migraines Osteoarthritis Osteomalacia pt unaware Positive HAYDEN (antinuclear antibody) Surgical History H/O arthroscopy of shoulder bilateral History of carpal tunnel release bilateral History of esophagogastroduodenoscopy (EGD) History of lithotripsy History of sinus surgery x2 History of tooth extraction History of total abdominal hysterectomy History of tubal ligation Family History Mother Myocardial infarction Denies family history of Colon cancer Ovarian cancer Prostate cancer Breast cancer Colorectal cancer Social History Smoking Status: Never smoker Second Hand Exposure: No; Hx Alcohol Use: Yes Alcohol type: wine Alcohol Intake Frequency: Monthly or Less Hx Substance Use: No Preferred Language: Finnish Communication Ability: Effective Visual Impairment: No Limitations Hearing Ability: Normal Alarm Service Technician Required: No Beliefs That Will Affect Care: None marital status: Current Living Situation: Spouse current occupational status: employed Other Information That Helps Us Care for You: No Feels Safe at Home: Yes Safety Concerns: Feels Safe At This Time Childhood Exposure to Second-Hand Smoke: No Dental Care, Regularly: Yes Physical Activity Frequency: 3-4 Times per Week Physical Activity Frequency Comment: walking Seatbelt Use: always Sunscreen Use: Yes Assistive Devices: Glasses and Oxygen - Continuous Review of Systems Review of Systems: All systems reviewed & are unremarkable except as noted in HPI & below Physical Exam Physical Exam: General: A&Ox3. Somnolent/fatigued. Mild distress. BiPAP in place HEENT: Atraumatic, normocephalic. Pulm: Decreased air entry bilaterally and crackles present bilaterally. No wheezes. Symmetrical chest rise. Moderately increased work of breathing and mild respiratory distress despite BiPAP Cardiac: RRR, -mrg. Radial pulses intact and symmetrical. Abdominal: soft, non-tender, non-distended, BS x 4 Skin: warm, dry Results & Data Results & Data ([facility]) Vital Signs (Past 12 Hours) Vital Signs Temp Pulse Pulse Pulse Resp BP Pulse Ox 05/14/20 07:36 89 22 89 L 05/14/20 07:24 37.8 C H 89 22 127/80 88 L 05/14/20 03:21 78 26 H 86 L 05/14/20 03:13 37.4 C 81 28 H 145/82 H 86 L 05/14/20 01:39 65 05/13/20 23:16 36.7 C 71 24 122/79 92 05/13/20 23:02 66 18 90 Resident Activity Tracking Resident Involvement: Resident Care Provided Care Provided: Adult Hospital Medicine
[2020-05-14 08:50] LABS: BUN Creatinine Ratio 10.7 (10-20); Calcium 8.9 mg/dl (8.5-10.1); Creatinine Clr Calc Pharmacy 108.4 ml/min; Est GFR (African American) 113.8; Est GFR (Non-African American) 98.2; Magnesium 1.9 mg/dl (1.8-2.4); Phosphorus 2.3 mg/dl (2.5-4.9); Potassium 3.1 mmol/L (3.5-5.1)
[2020-05-14 08:51] LABS: Base Excess ABG -0.9 mEq/L (-9-1.8); HCO3 ABG 22 mmol/L (19-24); Oxygen Saturation ABG 96.7 % (90-95); PCO2 ABG 30 mmHg (35-46); PO2 ABG 80 mmHg (80-95); pH ABG 7.48 (7.35-7.45)
[2020-05-14 08:52] LABS: Allen Test Pos (Pos)
[2020-05-14] MEDS ORDERED: RAPID SEQUENCE INDUCTION BAG ONE (08:56)
[2020-05-14] MEDS ORDERED: STAT IV Infusion **Titration per Protocol STA (08:57)
[2020-05-14] MEDS: dexAMETHasone 6 MG in SYRINGE 0 ML IV SCH (08:58)
--- NOTE | 2020-05-14 09:01 | Hospitalist Progress Note ---
Date of Service May 14, 2020 Assessment & Plan (1) Acute respiratory failure with hypoxia: due to COVID 19 pneumonia yesterday did well on 35L and 60% FiO2, proned for several hours declined over night, up to 40L and 100% FiO2, tachypnea PaO2 is 80 and saturations 96% on blood gas CT chest on admission showed impressive bilateral infiltrates chest x-ray 05/11 with progression of infiltrates compared to two days prior plan to repeat CXR today once in ICU prognosis is worse today, will move to ICU, may require intubation (2) COVID-19: Dexamethasone 6mg IV daily x 10 days, day 6 Isolation precautions no role for plasma or Remdesivir given she is 10 days into illness she cannot eat or drink much, poor oral intake for days giving gentle fluids periodically, want to keep hydrated but also keep lungs dry with sore throat, resolved with diarrhea, also likely COVID, give Imodium PRN, resolved (3) Multifocal pneumonia: Elevated procalcitonin in setting of sudden worsening over last 2 days co ncerning for secondary bacterial infection Ceftriaxone 2g IV + Azithromycin 500mg IV x 7 days, day 6 Dexamethasone 6mg IV daily, day 6 at risk of further deterioration, monitor closely CXR on 05/11 with worsening infiltrates (4) 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 De Jesus this morning since she is looking worse, concerned that she might require intubation he agreed to transfer to ICU, room 106 I called her , Garett, spoke with him and provided update, he agrees with intubation, answered all his questions Review of Systems Review of Systems: All systems reviewed & are unremarkable except as noted in Subjective Constitutional: + fever, + sweats, + fatigue and + weakness Respiratory: + cough, + dyspnea and + dyspnea on exertion; no sputum production Cardiovascular: no chest pain and no edema Gastrointestinal: + early satiety (no appetite); no abdominal pain, no nausea, no vomiting, no constipation and no diarrhea/loose stools Musculoskeletal: + muscle weakness Physical Exam Constitutional: well developed, + ill appearing and + disheveled; no acute distress Neck: trachea midline, no thyromegaly Respiratory: + labored breathing, + uses accessory muscles and + tachypneic; no cough Auscultation: + crackles (bases); no rales, no rhonchi and no wheezes Cardiovascular: RRR, no murmur, no edema Gastrointestinal (Abdomen): normal bowel sounds, soft, nontender, no hepatosplenomegaly Musculoskeletal: no cyanosis or clubbing, extremities motor strength 5/5 Skin: no rashes, warm and dry Neurologic: patellar DTR's 2+ bilat, sensation intact and PERRL, EOMI, accommodation nl, no face palsy, no dysarthria Psychiatric: A+Ox3, euthymic affect Lymphatic: no cervical or axillary lymphadenopathy Results & Data Results & Data ([facility]) Vital Signs (Past 12 Hours) Vital Signs Temp Pulse Pulse Pulse Resp BP Pulse Ox 05/14/20 07:36 89 22 89 L 05/14/20 07:24 37.8 C H 89 22 127/80 88 L 05/14/20 03:21 78 26 H 86 L 05/14/20 03:13 37.4 C 81 28 H 145/82 H 86 L 05/14/20 01:39 65 05/13/20 23:16 36.7 C 71 24 122/79 92 05/13/20 23:02 66 18 90 Laboratory Results Laboratory Results - last 24 hr 05/14/20 05/14/20 07:52 08:38 ABG pH 7.48 H ABG pCO2 30 L ABG pO2 80 ABG HCO3 22 ABG O2 Saturation 96.7 H ABG Base Excess -0.9 Oseas Test Pos Barometric Pressure 746.0 Oxygen Given FLOW RATE 40 Sodium 138 Potassium 3.1 L Chloride 108 H Carbon Dioxide 23 Anion Gap 7.0 BUN 8 Creatinine 0.70 Est Cr Clr Drug Dosing 108.4 Est GFR ( Amer) 113.8 Est GFR (Non-Af Amer) 98.2 BUN/Creatinine Ratio 10.7 Glucose 113 H Calcium 8.9 Phosphorus 2.3 L Magnesium 1.9 Medications Administered Current Inpatient Medications Acetaminophen (Acetaminophen 325 Mg Tab) 650 mg PO Q4H PRN PRN Reason: Pain or Fever Stop: 06/08/20 17:11 Al Hydrox/Mg Hydrox/Simethicone (Aluminum/Magnesium Susp 30 Ml Udc) 15 ml PO Q4H PRN PRN Reason: Dyspepsia Stop: 06/08/20 17:11 Cetirizine HCl (Cetirizine Hcl 10 Mg Tablet) 10 mg PO BID MARY JANE Stop: 06/08/20 20:59 Last Admin: 05/13/20 21:42 Dose: 10 mg Documented by: Lidocaine HCl 60 ml/Diphenhydramine HCl 150 mg/ Al Hydrox/Mg Hydrox/Simethicone 60 ml/ Glycerin 60 ml/ [employer]CODE [employer]IFIER 1 ea 0 ml PO Q4H PRN PRN Reason: Sore Throat Stop: 06/09/20 18:03 Enoxaparin Sodium (Enoxaparin Inj 40 Mg/0.4 Ml Syr) 40 mg SQ BID MARY JANE Stop: 06/08/20 20:59 Last Admin: 05/13/20 21:42 Dose: 40 mg Documented by: Fish Oil (Mcdonough-3 (Purified Fish Oil) 1 Gm Cap) 1 gm PO QAM MARY JANE Stop: 06/09/20 08:59 Last Admin: 05/13/20 08:28 Dose: 1 gm Documented by: Ceftriaxone Sodium 2,000 mg/ (Dextrose) 70 mls @ 100 mls/hr IV Q24H MARY JANE; Protocol Stop: 05/16/20 17:59 Last Infusion: 05/13/20 19:10 Dose: Infused Documented by: Azithromycin 250 mg/ Dextrose 252.5 mls @ 125 mls/hr IV Q24H MARY JANE; Protocol Stop: 05/17/20 16:59 Last Infusion: 05/13/20 18:24 Dose: Infused Documented by: Dexamethasone 6 mg/ Syringe 1.5 mls @ 1 mls/min IV QAM MARY JANE Stop: 05/19/20 08:59 Last Admin: 05/14/20 08:58 Dose: 1 mls/min Documented by: Loperamide HCl (Loperamide Hcl 2 Mg Cap) 2 mg PO Q6 PRN PRN Reason: Diarrhea Stop: 06/09/20 18:03 Melatonin (Melatonin 3 Mg Tab) 3 mg PO HS REPLACED BY [facility]; Protocol Stop: 06/08/20 20:59 Last Admin: 05/13/20 21:41 Dose: 3 mg Documented by: Miscellaneous (Cevimeline: Order Awaiting Action) 1 ea N/A QS REPLACED BY [facility] Stop: 06/09/20 17:59 Last Admin: 05/13/20 15:01 Dose: Not Given Documented by: Ondansetron HCl (Ondansetron Inj 2 Mg/Ml 2 Ml Vial) 4 mg IV Q6H PRN PRN Reason: Nausea Stop: 06/08/20 17:11 Last Admin: 05/13/20 19:35 Dose: 4 mg Documented by: Oxybutynin Chloride (Oxybutynin Chloride Xl 5 Mg Tabcr) 15 mg PO QAM REPLACED BY [facility] Stop: 06/09/20 08:59 Last Admin: 05/13/20 08:28 Dose: 15 mg Documented by: Pantoprazole Sodium (Pantoprazole 40 Mg Tab) 40 mg PO BID REPLACED BY [facility] Stop: 06/08/20 20:59 Last Admin: 05/13/20 21:41 Dose: 40 mg Documented by: Polyethylene Glycol (Polyethylene (Miralax) 17 Gm Pack) 17 gm PO DAILY PRN PRN Reason: Constipation Stop: 06/08/20 17:11 Potassium Chloride (Potassium Chloride 10 Meq Tabcr) 10 meq PO BID REPLACED BY [facility] Stop: 06/09/20 08:59 Last Admin: 05/13/20 21:40 Dose: 10 meq Documented by: Propranolol HCl (Propranolol Hcl 60 Mg [place]) 60 mg PO QAM REPLACED BY [facility] Stop: 06/09/20 08:59 Last Admin: 05/13/20 08:28 Dose: 60 mg Documented by: Sumatriptan Succinate (Sumatriptan Succinate 100 Mg Tab) 100 mg PO UD PRN PRN Reason: migraine headache Stop: 06/08/20 17:11 Topiramate (Topiramate 50 Mg Tab) 50 mg PO QAM REPLACED BY [facility] Stop: 06/09/20 08:59 Last Admin: 05/13/20 08:28 Dose: 50 mg Documented by: Topiramate (Topiramate 100 Mg Tab) 50 mg PO QPM REPLACED BY [facility] Stop: 06/08/20 20:59 Last Admin: 05/13/20 21:43 Dose: 50 mg Documented by: Trazodone HCl (Trazodone Hcl 100 Mg Tab) 100 mg PO HS REPLACED BY [facility] Stop: 06/08/20 20:59 Last Admin: 05/13/20 21:40 Dose: 100 mg Documented by: Vitamin D (Cholecalciferol 1,000 Units 25 Mcg Tab) 5,000 units PO HS MARY JANE Stop: 06/08/20 20:59 Last Admin: 05/13/20 21:42 Dose: 5,000 units Documented by: PG Care Time/CCT Total # of Minutes Spent Total Time Spent: 32 Total Time Spent with Patient: Total time spent is greater than 50% in coordination of care (as documented) at patient's floor/unit and/or counseling patient: Coding Level of Care Code 05333 Subseq Hosp Care Lvl 3 Diagnoses Acute respiratory failure with hypoxia J96.01 COVID-19 U07.1 Multifocal pneumonia J18.9 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
[2020-05-14] MEDS ORDERED: PROPOFOL IV EMULSION 10 MG/ML 100 ML VIAL IV ONE (09:09)
[2020-05-14] MEDS: fentaNYL DRIP 1,250 MCG/250 ML BAG IV SCH ×3 (09:35→18:14)
[2020-05-14] MEDS: PROPOFOL BOLUS FROM BAG IV PRN (10:00)
--- NOTE | 2020-05-14 10:09 | XRay Report ---
XR chest 1V portable CLINICAL HISTORY: Respiratory failure COMPARISON STUDY: 05/11/2020 FINDINGS: The cardiac and mediastinal contours remain stable. There are multifocal airspace opacities consistent with a multifocal pneumonia. There is been interval placement of endotracheal tube 29 mm above the cassandra. There is a enteric tube positioned within the stomach. There is a right subclavian central venous catheter position with its tip at the level the superior vena cava. There is no pneumo thorax.[ IMPRESSION: 1. Altered focal airspace opacities consistent with a multifocal pneumonia 2. Satisfactory positioning of the lines and tubes. No pneumothorax. ACT 112: Negative or not required by law. Electronically signed by: Gary Ramirez M.D. 05/14/2020 10:07 AM
--- NOTE | 2020-05-14 10:26 | Procedure Note ---
Procedure Note Date of Service May 14, 2020 Note Procedure Note Procedure Name: A line placement Procedure time out: side/site verified Consent obtained: emergent consent implied Performed by: myself, under direct supervision by Dr. De Jesus Indications: diagnostic Contraindications: none Description: The patient was placed in supine position, right radial A-line placement visualized under ultrasound guidance, and then under strict sterile field, the skin was prepped with chlorhexidine, using ultrasound guidance, one attempt made, using Seldinger technique, the line was placed, covered with surgical dressing, patient tolerated the procedure very well, no immediate complication. Complications: none Patient tolerated procedure: well Coding Resident Activity Tracking Resident Involvement: Resident Care Provided Care Provided: Adult [facility] Medicine
--- NOTE | 2020-05-14 11:12 | Procedure Note ---
Procedure Note Date of Service May 14, 2020 Procedure date: Noted above Procedure: Radial artery cannulation Pre-procedure Diagnosis: Need for invasive monitoring Post-procedure Diagnosis: same as above Prior to Procedure: Informed Consent: The risks, benefits, indications, potential complications, and alternatives were explained to the patient and informed consent obtained. Attending Staff: Maciej De Jesus DO Skin Prep: Chlorhexidine Anesthesia: 3 mL 1% lidocaine without epinephrine The identity of the patient was confirmed and a bedside time out was performed. Description of Procedure: After sterile prep and sterile drape utilizing standard sterile technique the superficial skin of the right radial artery was anesthetized. The target artery was identified via dynamic ultrasound guidance and entered with a 20-gauge arrow Angiocath. Pulsatile bright red blood return was noted. Via modified Seldinger technique the self-contained guidewire was advanced and the Angiocath advanced over the guidewire. The guidewire was removed and brisk arterial blood return was noted. The pressure monitor was connected, and the arterial line was secured via commercial securement device. A sterile dressing was then applied. Complications: None Estimated blood loss: Trace Patient tolerated the procedure well. Coding CPT Codes Tubes, Drains, and Vasc Access - Tubes, Drains, and Vasc Access: [id number] Place Catheter In Artery ([id number]) [facility] [place] Codes (Charges) Tubes, Drains, and Vasc Access Procedure 1: Tubes, Drains, and Vasc Access: [id number] Place Catheter In Artery
[2020-05-14] MEDS: CISATRACURIUM BESYLATE 40 MG in 0.9 % SODIUM CHLORIDE 80 ML IV SCH ×4 (11:20→22:51)
[2020-05-14 12:08] LABS: iSTAT Art Bld Gas pCO2 Correct 55 mmHg (35-46); iSTAT Art Bld Gas pH Corrected 7.261 (7.35-7.45); iSTAT Arterial Blood Gas HCO3 25 meg/L (19-24); iSTAT Arterial Blood Gas pCO2 55 mmHg (35-46); iSTAT Arterial Blood Gas pH 7.26 (7.35-7.45); iSTAT Arterial Blood Gas pO2 151 mmHg (80-95); iSTAT Arterial Blood Gas pO2 C 151; iSTAT Carbon Dioxide 26 mmol/L (24-31); iSTAT FiO2 80 %; iSTAT Hematocrit 34 % (37-47); iSTAT Hemoglobin 11.6 g/dl (12.0-16.0); iSTAT Potassium 3.6 mmol/L (3.3-5.0); iSTAT Site Art Line; iSTAT Sodium 139 mmol/L (135-144)
[2020-05-14] MEDS: propofoL 1,000 MG/100 ML VIAL IV SCH ×3 (12:36→21:44)
[2020-05-14] MEDS: PROPRANOLOL HCL 60 MG LA CAP PO SCH (13:16)
[2020-05-14] MEDS: OXYBUTYNIN CHLORIDE XL 5 MG TABCR PO SCH (13:17)
[2020-05-14] MEDS: POTASSIUM CHLORIDE 10 MEQ TABCR PO SCH (13:17)
[2020-05-14] MEDS ORDERED: LANSOPRAZOLE 30 MG SOLTAB NG SCH (13:30)
[2020-05-14] MEDS ORDERED: ACETAMINOPHEN SUSP 325 MG/10.15 ML UDC NG PRN (13:45)
[2020-05-14] MEDS ORDERED: SUCCINYLCHOLINE CHLORIDE 20 MG/ML 10 ML VIAL IV ONE (13:56)
[2020-05-14] MEDS ORDERED: fentaNYL citrate 100 MCG/2 ML VIAL IV ONE (13:56)
[2020-05-14] MEDS ORDERED: ETOMIDATE 2 MG/ML 20 ML VIAL IV ONE (13:56)
[2020-05-14] MEDS: CETIRIZINE HCL 10 MG TABLET PO SCH (14:00)
[2020-05-14] MEDS: CEVIMELINE: ORDER AWAITING ACTION SCH ×2 (14:00→14:01)
[2020-05-14] MEDS: OMEGA-3 (PURIFIED FISH OIL) 1 GM CAP PO SCH (14:00)
[2020-05-14] MEDS: TOPIRAMATE 50 MG TAB PO SCH (14:01)
[2020-05-14] MEDS: ENOXAPARIN INJ 40 MG/0.4 ML SYR SQ SCH ×2 (14:01→19:48)
[2020-05-14] MEDS: POTASSIUM ACETATE/NSS 20 MEQ/110 ML BAG IV SCH ×2 (14:02→16:03)
[2020-05-14] MEDS: POTASSIUM CHLORIDE 20 MEQ/15 ML UDC NG SCH ×2 (14:04→19:48)
[2020-05-14] MEDS: PANTOprazole 40 MG TAB PO SCH (14:55)
[2020-05-14] MEDS: AZITHROMYCIN 250 MG in DEXTROSE 5% 250 ML IV SCH (18:11)
[2020-05-14] MEDS: traZODone HCL 100 MG TAB PO SCH (19:48)
[2020-05-14] MEDS: TOPIRAMATE 100 MG TAB PO SCH (19:49)
[2020-05-14] MEDS: CHOLECALCIFEROL 1,000 UNITS 25 MCG TAB PO SCH (19:50)
[2020-05-14] MEDS: cefTRIAXone SODIUM 2,000 MG in DEXTROSE 5% 50 ML IV SCH (19:59)
[2020-05-15] MEDS: propofoL 1,000 MG/100 ML VIAL IV SCH ×5 (02:56→21:00)
[2020-05-15 04:04] LABS: iSTAT Allen Test Pass; iSTAT Art Bld Gas pCO2 Correct 61 mmHg (35-46); iSTAT Art Bld Gas pH Corrected 7.266 (7.35-7.45); iSTAT Arterial Blood Gas HCO3 28 meg/L (19-24); iSTAT Arterial Blood Gas pCO2 60 mmHg (35-46); iSTAT Arterial Blood Gas pH 7.27 (7.35-7.45); iSTAT Arterial Blood Gas pO2 89 mmHg (80-95); iSTAT Arterial Blood Gas pO2 C 92; iSTAT Carbon Dioxide 29 mmol/L (24-31); iSTAT FiO2 30 %; iSTAT Hematocrit 32 % (37-47); iSTAT Hemoglobin 10.9 g/dl (12.0-16.0); iSTAT Potassium 4.6 mmol/L (3.3-5.0); iSTAT Site Art Line; iSTAT Sodium 141 mmol/L (135-144)
[2020-05-15 04:54] LABS: Eosinophils # (auto) 0.04 K/uL (0-0.5); Eosinophils % (auto) 0.5 %; Hematocrit (blood only) 33.4 % (37-47); Hemoglobin 11.1 g/dL (12.0-16.0); Immature Granulocytes # (auto) 0.05 K/uL (0.00-0.02); Immature Granulocytes % (auto) 0.6 %; Lymphocytes # (auto) 0.67 K/uL (1.2-3.4); Lymphocytes % (auto) 7.8 %; Mean Corpuscular Hemoglobin 28.6 pg (25-34); Mean Corpuscular Hgb Conc 33.2 g/dL (32-36); Mean Corpuscular Volume 86.1 fL (80-100); Mean Platelet Volume 9.3 fL (7.4-10.4); Monocytes # (auto) 0.19 K/uL (0.11-0.59); Monocytes % (auto) 2.2 %; Neutrophils # (auto) 7.66 K/uL (1.4-6.5); Neutrophils % (auto) 88.9 %; Platelet Count 325 K/uL (130-400); RDW Coefficient of Variation 13.2 % (11.5-14.5); RDW Standard Deviation 41.7 fL (36.4-46.3); Red Blood Count 3.88 M/uL (4.2-5.4); White Blood Count 8.61 K/uL (4.8-10.8)
[2020-05-15] MEDS: CISATRACURIUM BESYLATE 40 MG in 0.9 % SODIUM CHLORIDE 80 ML IV SCH ×4 (04:56→13:47)
[2020-05-15 05:32] LABS: BUN Creatinine Ratio 17.4 (10-20); Calcium 8.7 mg/dl (8.5-10.1); Creatinine Clr Calc Pharmacy 133.1 ml/min; Est GFR (African American) 121.8; Est GFR (Non-African American) 105.1; Magnesium 2.3 mg/dl (1.8-2.4); Phosphorus 3.4 mg/dl (2.5-4.9); Potassium 4.5 mmol/L (3.5-5.1)
[2020-05-15] MEDS: fentaNYL DRIP 1,250 MCG/250 ML BAG IV SCH ×2 (06:19→20:00)
[2020-05-15] MEDS: SODIUM CHLORIDE 0.9% IV SCH (07:57)
[2020-05-15] MEDS: DEXAMETHASONE IV SCH (07:57)
[2020-05-15] MEDS ORDERED: FUROSEMIDE 40 MG in SYRINGE 0 ML IV ONE (08:00)
[2020-05-15] MEDS: POTASSIUM CHLORIDE 20 MEQ/15 ML UDC NG SCH ×2 (08:02→21:18)
[2020-05-15] MEDS: ENOXAPARIN INJ 40 MG/0.4 ML SYR SQ SCH ×2 (08:03→21:15)
[2020-05-15] MEDS: OMEGA-3 (PURIFIED FISH OIL) 1 GM CAP PO SCH (09:47)
[2020-05-15] MEDS: PROPRANOLOL HCL 60 MG LA CAP PO SCH (09:47)
[2020-05-15] MEDS: TOPIRAMATE 50 MG TAB PO SCH (09:48)
--- NOTE | 2020-05-15 10:55 | Critical Care Progress Note ---
Date of Service May 15, 2020 Assessment & Plan (1) Acute respiratory failure with hypoxia: Impression: 54-year-old obese female admitted on 05/09 for COVID-19 pneumonia; admitted to the ICU on 05/14 for acute hypoxic respiratory failure. Intubated 05/14/2020 Neuro - [facility] ICU: unobtainable - sedated - continue Propofol/Fentanyl for sedation - continue Nimbex for NMBA - continue routine RASS - migraines: continue home Topiramate 50mg PO BID Cardiac - hemodynamically stable - continue close monitoring while in ICU Respiratory - VDRF with acute hypoxic respiratory failure due to COVID-19 PNA - CXR 05/14 showing persistent multifocal airspace opacities - continue ARDSnet protocol - continue sedation with Propofol/Fentanyl - continue NMBA - Nimbex GI -Start topical feeds - no issues at this time RENAL/LYTES -Monitor BUNs/creatinine -Avoid nephrotoxic medications - Replace lytes as needed - strict I/Os ENDO - prediabetes (A1c 5.8 on 03/01/2020), no thyroid disease - no concerns at this time HEME - Stable H&H, continue to monitor - started on COVID-19 Lovenox dosing (40mg SQ Q12H) - continue ID - COVID-19 PNA - continue Dexamethasone - elevated procalcitonin of 0.55 on 05/09 in the setting of rapid worsening of respiratory status concerning for superimposed bacterial pneumonia - continue Azithromycin/Ceftriaxone for total of 7 days. Today will be the last dose --Prophylaxis VTE: Lovenox GI: Protonix Lines: Right subclavian, right radial, positive Lee Diet: N.p.o. Plan: In/out: -85, urine output 1750, patient is +5.7 L since coming to the hospital We will supine the patient today. Patient is on PEEP of 8, FiO2 30% saturating 96% If she stays on the same settings I doubt that we will have to prone her again. I increase the patient DEXA to 20 mg for 5 days followed by 10 mg for 5 days. Continue with paralysis for another 12 hours. If she is doing well we will discontinue the paralytics Start the patient on topical feeds. Today will be the last dose of his enteral Rocephin. T-max 37.7 I have personally spent 41 minutes of critical care time in the direct management of this patient. This is a life/limb threatening event. This includes time spent evaluating patient, direct bedside care, chart review, placing orders, interpretation of diagnostic studies, discussion with consultants, patient, and family members, as well as other required patient management activities. This time is exclusive of all separately billable procedures, and teaching time and separate from and in addition to any other critical care service time. Please note the above document was generated using voice recognition software. It may contain grammatical, syntax or spelling errors. (2) Pneumonia due to COVID-19 virus: (3) Multifocal pneumonia: (4) Gastro-esophageal reflux disease without esophagitis: Admission and Anticipated Discharge Date Admission Date: May 09, 2020 Subjective Patient seen and examined at bedside. No acute distress, no adverse events overnight. Patient was paralyzed at the time of examination She was also on propofol and fentanyl. Prone at the time of examination. She was saturating 96% on PEEP of 8 and FiO2 30%. Review of Systems Review of Systems: Unobtainable due to endotracheal tube Physical Exam Physical Exam: Constitutional: No acute distress HEENT: PERRLA, positive ETT Respiratory system: Decreased air entry bilaterally, no wheeze, no rhonchi, positive crackles bilaterally CVS: S1-S2 positive, no murmurs or gallops Abdomen: Soft, nontender, nondistended, positive bowel sounds x4, obese Extremities: +2 pulses bilaterally radialis/ dorsalis pedis, no cyanosis, no edema Neuro: Paralyzed Psych: Unable to assess G/U: Positive Lee Skin: no rashes, warm and dry Lymphatic: no cervical or axillary lymphadenopathy Results & Data Results & Data ([facility]) Vital Signs (Past 12 Hours) Vital Signs Temp Pulse Resp BP Pulse Ox Pulse Ox 05/15/20 10:37 75 22 89 L 05/15/20 09:00 95 05/15/20 08:00 76 05/15/20 07:55 76 22 98 05/15/20 07:00 36.7 C 05/15/20 06:08 37.7 C H 70 117/72 98 05/15/20 06:00 37.6 C H 68 98 05/15/20 05:08 37.5 C 68 115/76 98 05/15/20 05:00 37.5 C 65 99 05/15/20 04:08 37.4 C 69 124/77 98 05/15/20 04:00 37.4 C 72 98 05/15/20 03:48 77 22 96 05/15/20 03:08 37.4 C 74 133/72 97 05/15/20 03:00 37.4 C 72 97 05/15/20 02:08 37.3 C 73 119/69 96 05/15/20 02:00 37.2 C 73 96 05/15/20 01:08 37.1 C 72 130/83 100 05/15/20 01:00 37.1 C 74 100 05/15/20 00:09 36.9 C 71 100 05/15/20 00:08 36.9 C 73 128/80 100 05/15/20 00:01 68 05/15/20 00:00 36.9 C 72 99 05/14/20 23:22 66 16 98 05/14/20 23:08 36.7 C 90 126/73 98 05/14/20 23:00 36.7 C 70 98 05/15/20 04:44 05/15/20 04:44 Coding Level of Care Code Critical Care 1st 30-74 mins Diagnoses Acute respiratory failure with hypoxia J96.01 Pneumonia due to COVID-19 virus U07.1; J12.82 Multifocal pneumonia J18.9 Gastro-esophageal reflux disease without esophagitis K21.9 Time Spent (min) 41
[2020-05-15] MEDS: PANTOprazole 40 MG in SYRINGE 0 ML IV SCH (11:01)
--- NOTE | 2020-05-15 13:33 | XRay Report ---
XR chest 1V portable CLINICAL HISTORY: COVID-19 PNA COMPARISON STUDY: Chest CT May 09, 2020. Chest radiograph May 14, 2020. FINDINGS: The tip of the endotracheal tube is 4.2 cm above the cassandra. Tip of nasogastric tube projec ts over the pylorus. Right subclavian central line is in place. There is no pneumothorax or pleural e ffusion. Cardiomediastinal silhouette is stable. Extensive bilateral airspace opacities persist. IMPRESSION: 1. Satisfactory positioning of lines and tubes. 2. No change in extensive bilateral airspace opacities consistent with an infectious process. ACT 112: Negative or not required by law. Electronically signed by: Tylor Phelan M.D. 05/15/2020 1:32 PM
[2020-05-15] MEDS: AZITHROMYCIN 250 MG in DEXTROSE 5% 250 ML IV SCH (17:34)
[2020-05-15] MEDS: cefTRIAXone SODIUM 2,000 MG in DEXTROSE 5% 50 ML IV SCH (18:34)
--- NOTE | 2020-05-15 19:52 | Hospitalist Progress Note ---
Date of Service May 15, 2020 Assessment & Plan (1) Acute respiratory failure with hypoxia: due to COVID 19 pneumonia currently is intubated, will defer management to critical care team. (2) COVID-19: Dexamethasone 6mg IV daily x 10 days, day 6 Isolation precautions no role for plasma or Remdesivir given she is 10 days into illness she cannot eat or drink much, poor oral intake for days giving gentle fluids periodically, want to keep hydrated but also keep lungs dry with sore throat, resolved with diarrhea, also likely COVID, give Imodium PRN, resolved (3) Multifocal pneumonia: Elevated procalcitonin in setting of sudden worsening over last 2 days concerning for secondary bacterial infection Ceftriaxone 2g IV + Azithromycin 500mg IV x 7 days, day 6 Dexamethasone 6mg IV daily, day 6 at risk of further deterioration, monitor closely CXR on 05/11 with worsening infiltrates (4) 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 Admission and Anticipated Discharge Date Admission Date: May 09, 2020 Subjective Patient is intubated. Review of Systems Review of Systems: Unobtainable due to endotracheal tube Physical Exam Physical Exam: Constitutional: well developed, intubated and sedated, no acute distress Neck: trachea midline, no thyromegaly Respiratory: Auscultation: + crackles (bases); no rales, no rhonchi and no wheezes Cardiovascular: RRR, no murmur, no edema Gastrointestinal (Abdomen): normal bowel sounds, soft, nontender, no hepatosplenomegaly Musculoskeletal: no cyanosis or clubbing, extremities motor strength 5/5 Skin: no rashes, warm and dry Psychiatric: intubated Lymphatic: no cervical or axillary lymphadenopathy Results & Data Results & Data ([facility]) Vital Signs (Past 12 Hours) Vital Signs Temp Pulse Resp BP Pulse Ox Pulse Ox 05/15/20 18:00 37.0 C 57 L 93 05/15/20 17:09 37.2 C 65 100/66 93 05/15/20 17:00 37.2 C 57 L 94 05/15/20 16:09 36.9 C 63 130/76 98 05/15/20 16:00 36.8 C 65 98 05/15/20 15:41 36.8 C 53 L 142/81 H 98 05/15/20 15:09 37.0 C 65 96/67 L 93 05/15/20 15:00 37.0 C 61 93 05/15/20 14:58 62 23 95 05/15/20 14:08 37.3 C 68 101/68 95 05/15/20 14:00 37.3 C 67 95 05/15/20 13:08 37.5 C 63 105/70 97 05/15/20 13:00 37.6 C H 65 97 05/15/20 12:09 37.7 C H 71 119/80 98 05/15/20 12:00 37.7 C H 69 96 05/15/20 11:09 37.8 C H 75 128/80 94 05/15/20 11:00 37.8 C H 73 93 05/15/20 10:37 75 22 89 L 05/15/20 10:28 37.8 C H 79 123/76 94 05/15/20 10:00 37.8 C H 81 96 05/15/20 09:08 37.7 C H 77 113/74 97 05/15/20 09:00 37.7 C H 78 96 95 05/15/20 08:08 37.6 C H 76 128/77 97 05/15/20 08:00 37.6 C H 76 98 05/15/20 07:55 76 22 98 PG Care Time/CCT Total # of Minutes Spent Total Time Spent with Patient: Total time spent is greater than 50% in coordination of care (as documented) at patient's floor/unit and/or counseling patient: Coding Level of Care Code 84127 Subseq Hosp Care Lvl 3 Diagnoses Acute respiratory failure with hypoxia J96.01 COVID-19 U07.1 Multifocal pneumonia J18.9 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
[2020-05-15] MEDS: traZODone HCL 100 MG TAB PO SCH (21:15)
[2020-05-15] MEDS: CHOLECALCIFEROL 1,000 UNITS 25 MCG TAB PO SCH (21:15)
[2020-05-15] MEDS: TOPIRAMATE 100 MG TAB PO SCH (21:15)
[2020-05-16] MEDS: propofoL 1,000 MG/100 ML VIAL IV SCH ×4 (01:07→18:35)
[2020-05-16 04:29] LABS: iSTAT Art Bld Gas pCO2 Correct 40 mmHg (35-46); iSTAT Art Bld Gas pH Corrected 7.421 (7.35-7.45); iSTAT Arterial Blood Gas HCO3 27 meg/L (19-24); iSTAT Arterial Blood Gas pCO2 42 mmHg (35-46); iSTAT Arterial Blood Gas pH 7.41 (7.35-7.45); iSTAT Arterial Blood Gas pO2 59 mmHg (80-95); iSTAT Arterial Blood Gas pO2 C 55; iSTAT Carbon Dioxide 28 mmol/L (24-31); iSTAT FiO2 35 %; iSTAT Hematocrit 30 % (37-47); iSTAT Hemoglobin 10.2 g/dl (12.0-16.0); iSTAT Potassium 3.9 mmol/L (3.3-5.0); iSTAT Site Art Line; iSTAT Sodium 140 mmol/L (135-144)
[2020-05-16 05:29] LABS: Eosinophils # (auto) 0.03 K/uL (0-0.5); Eosinophils % (auto) 0.4 %; Hematocrit (blood only) 32.7 % (37-47); Hemoglobin 10.8 g/dL (12.0-16.0); Immature Granulocytes # (auto) 0.08 K/uL (0.00-0.02); Lymphocytes # (auto) 0.62 K/uL (1.2-3.4); Lymphocytes % (auto) 7.6 %; Mean Corpuscular Hemoglobin 28.3 pg (25-34); Mean Corpuscular Volume 85.8 fL (80-100); Mean Platelet Volume 9.6 fL (7.4-10.4); Monocytes # (auto) 0.16 K/uL (0.11-0.59); Neutrophils # (auto) 7.27 K/uL (1.4-6.5); Platelet Count 335 K/uL (130-400); RDW Coefficient of Variation 12.9 % (11.5-14.5); RDW Standard Deviation 40.1 fL (36.4-46.3); Red Blood Count 3.81 M/uL (4.2-5.4); White Blood Count 8.16 K/uL (4.8-10.8)
[2020-05-16 05:58] LABS: BUN Creatinine Ratio 22.8 (10-20); Calcium 8.6 mg/dl (8.5-10.1); Creatinine Clr Calc Pharmacy 122.3 ml/min; Est GFR (African American) 118.5; Est GFR (Non-African American) 102.2; Magnesium 2.4 mg/dl (1.8-2.4); Potassium 3.9 mmol/L (3.5-5.1)
[2020-05-16 06:06] LABS: Phosphorus 2.7 mg/dl (2.5-4.9)
[2020-05-16] MEDS: OMEGA-3 (PURIFIED FISH OIL) 1 GM CAP PO SCH (07:25)
[2020-05-16] MEDS: fentaNYL DRIP 1,250 MCG/250 ML BAG IV SCH (07:39)
[2020-05-16] MEDS: ENOXAPARIN INJ 40 MG/0.4 ML SYR SQ SCH ×2 (07:40→20:08)
[2020-05-16] MEDS: TOPIRAMATE 50 MG TAB PO SCH (07:40)
[2020-05-16] MEDS: POTASSIUM CHLORIDE 20 MEQ/15 ML UDC NG SCH ×2 (07:40→20:08)
[2020-05-16] MEDS: DEXAMETHASONE IV SCH (07:42)
[2020-05-16] MEDS: SODIUM CHLORIDE 0.9% IV SCH (07:42)
[2020-05-16] MEDS ORDERED: FUROSEMIDE 40 MG in SYRINGE 0 ML IV ONE (08:00)
[2020-05-16] MEDS ORDERED: D5W AND 1/2NSS 1,000 ML IV SCH (08:00)
--- NOTE | 2020-05-16 08:39 | XRay Report ---
XR chest 1V portable CLINICAL HISTORY: Respiratory failure. Covid positive patient COMPARISON STUDY: 05/15/2020 FINDINGS: The endotracheal tube is 37 mm above the cassandra. There is an enteric tube which passes into the stomach. There is a right subclavian central venous catheter. There are persistent bilateral pul monary airspace opacities consistent with a multifocal pneumonia[ IMPRESSION: 1. Bilateral pulmonary airspace opacities consistent with a multifocal pneumonia 2. Satisfactory positioning of the lines and tubes ACT 112: Negative or not required by law. Electronically signed by: Gary Ramirez M.D. 05/16/2020 8:38 AM
[2020-05-16] MEDS ORDERED: PEPTAMEN INTENSE VHP 1.0 CAL 1,000 ML BAG OG SCH (10:30)
--- NOTE | 2020-05-16 10:46 | Critical Care Progress Note ---
Date of Service May 16, 2020 Assessment & Plan (1) Acute respiratory failure with hypoxia: Impression: 54-year-old obese female admitted on 05/09 for COVID-19 pneumonia; admitted to the ICU on 05/14 for acute hypoxic respiratory failure. Intubated 05/14/2020 Neuro - [facility] ICU: Sedated - continue Propofol/Fentanyl for sedation -Off paralysis since 05/15/2020 - continue routine RASS - migraines: continue home Topiramate 50mg PO BID Cardiac - hemodynamically stable - continue close monitoring while in ICU Respiratory - VDRF with acute hypoxic respiratory failure due to COVID-19 PNA - S/p ARDSnet protocol - continue sedation keep RASS -1 GI - Start trophic feeds - no issues at this time RENAL/LYTES -Monitor BUNs/creatinine -Avoid nephrotoxic medications - Replace lytes as needed - strict I/Os ENDO - prediabetes (A1c 5.8 on 03/01/2020), no thyroid disease - no concerns at this time HEME - Stable H&H, continue to monitor - started on COVID-19 Lovenox dosing (40mg SQ Q12H) - continue ID - COVID-19 PNA - continue Dexamethasone - elevated procalcitonin of 0.55 on 05/09 in the setting of rapid worsening of respiratory status concerning for superimposed bacterial pneumonia -s/p a zithromycin/Ceftriaxone for total of 7 days. Last dose 05/15/2020 --Prophylaxis VTE: Lovenox GI: Protonix Lines: Right subclavian, right radial, positive Lee Diet: Trophic feed Plan: In/out: -578, urine output 2260, Another dose of Lasix 40 mg today Patient is on PEEP of 8, 35% at the time of examination. I went down on PEEP to 6 and tried on pressure support. I turned down sedation to see if she is able to wake up and breathe. She got tachypneic tachycardic She still not following commands. This could be because of ICU stay. I will continue with pressure support while on minimal sedation to make her exercise. We will try to extubate her tomorrow on Precedex. Patient blood sugar in the morning was 55. Started on D5 half NS. Once the patient is started on trophic feeds discontinue IV fluids. I have personally spent 37 minutes of critical care time in the direct managem ent of this patient. This is a life/limb threatening event. This includes time spent evaluating pat ient, direct bedside care, chart review, placing orders, interpretation of diagnostic studies, discussion with consultants, patient, and family members, as well as other required patient management activities. This time is exclusive of all separately billable procedures, and teaching time and separate from and in addition to any other critical care service time. Please note the above document was generated using voice recognition software. It may contain grammatical, syntax or spelling errors. (2) Pneumonia due to COVID-19 virus: (3) Multifocal pneumonia: (4) Gastro-esophageal reflux disease without esophagitis: Admission and Anticipated Discharge Date Admission Date: May 09, 2020 Subjective Patient seen and examined at bedside. No acute distress, no adverse events over night. Patient has been off paralysis since yesterday afternoon. She is on 40 of propofol, 100 of fentanyl. Patient opens her eyes to voice but does not track. She does not follow simple commands. Review of Systems Review of Systems: Unobtainable due to endotracheal tube Physical Exam Physical Exam: Constitutional: No acute distress HEENT: PERRLA, positive ETT Respiratory system: Decreased air entry bilaterally, no wheeze, no rhonchi, positive crackles bilaterally CVS: S1-S2 positive, no murmurs or gallops Abdomen: Soft, nontender, nondistended, positive bowel sounds x4, obese Extremities: +2 pulses bilaterally radialis/ dorsalis pedis, no cyanosis, no edema Neuro: Moves bilateral upper extremities actively, positive corneal, positive gag, breathing over the vent Psych: Unable to assess G/U: Positive Lee Skin: no rashes, warm and dry Lymphatic: no cervical or axillary lymphadenopathy Results & Data Results & Data ([facility]) Vital Signs (Past 12 Hours) Vital Signs Temp Pulse Pulse Resp BP BP Pulse Ox 05/16/20 10:27 73 23 94 05/16/20 08:12 73 23 94 05/16/20 08:01 05/16/20 07:00 36.4 C L 68 24 105/62 92 05/16/20 06:00 51 L 22 132/75 93 05/16/20 05:30 56 L 22 92 05/16/20 05:00 55 L 22 118/66 92 05/16/20 04:30 64 22 94 05/16/20 04:00 36 C L 72 22 127/80 92 05/16/20 03:30 79 24 95 05/16/20 03:25 73 26 H 90 05/16/20 03:00 44 L 22 96/56 L 89 L 05/16/20 02:30 45 L 22 89 L 05/16/20 02:00 45 L 22 101/55 L 89 L 05/16/20 01:30 44 L 22 89 L 05/16/20 01:00 46 L 22 100/59 L 90 05/16/20 00:30 49 L 22 90 05/16/20 00:00 36.7 C 71 22 133/72 91 05/15/20 23:30 77 26 H 93 05/15/20 23:00 75 22 127/73 94 Pulse Ox 05/16/20 10:27 05/16/20 08:12 05/16/20 08:01 92 05/16/20 07:00 05/16/20 06:00 05/16/20 05:30 05/16/20 05:00 05/16/20 04:30 05/16/20 04:00 05/16/20 03:30 05/16/20 03:25 05/16/20 03:00 05/16/20 02:30 05/16/20 02:00 05/16/20 01:30 05/16/20 01:00 05/16/20 00:30 05/16/20 00:00 05/15/20 23:30 05/15/20 23:00 05/16/20 05:17 05/16/20 05:17 Coding Level of Care Code Critical Care 1st 30-74 mins Diagnoses Acute respiratory failure with hypoxia J96.01 Pneumonia due to COVID-19 virus U07.1; J12.82 Multifocal pneumonia J18.9 Gastro-esophageal reflux disease without esophagitis K21.9 Time Spent (min) 37
[2020-05-16] MEDS: PANTOprazole 40 MG in SYRINGE 0 ML IV SCH (10:58)
[2020-05-16] MEDS ORDERED: STAT IV Infusion **Titration per Protocol STA (11:04)
--- NOTE | 2020-05-16 15:33 | Hospitalist Progress Note ---
Date of Service May 16, 2020 Assessment & Plan (1) COVID-19: Initially tested positive on 05/09/2020. No role for plasma or remdesivir given she is 10 days into illness. - Continue dexamethasone (though increased to 20 mg by ICU provider) - Isolation precautions - Mechanical ventilation per ICU team (2) Acute respiratory failure with hypoxia: Due to COVID 19 pneumonia. - Defer management to critical care team. (3) 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: - Continue cevimeline 30mg PO BID as able (4) Hyperactivity of bladder: - Continue oxybutynin 15mg PO BID as able (5) Gastro-esophageal reflux disease without esophagitis: - Continue pantoprazole 40mg IV BID (6) DVT prophylaxis: Lovenox 40 mg SQ BID per hospital protocol Admission and Anticipated Discharge Date Admission Date: May 09, 2020 Subjective Intubated Review of Systems Review of Systems: Unobtainable due to endotracheal tube Physical Exam Constitutional: + acute distress Eyes: no eyelid abnormality and no conjunctival abnormality ENMT: external ear and nose normal, oropharynx normal Mouth / Teeth: 1. Intubated Neck: trachea midline, no thyromegaly normal visual inspection Respiratory: + tachypneic Auscultation: + crackles Cardiovascular: RRR, no murmur, no edema Gastrointestinal (Abdomen): Inspection/Auscultation: abdomen normal to inspection; abdomen not distended Musculoskeletal: no cyanosis or clubbing, extremities motor strength 5/5 Skin: no rashes, warm and dry Neurologic: + does not move all extremities and + not awake Psychiatric: Orientation: + not alert and + not oriented to person Results & Data Results & Data ([facility]) Vital Signs (Past 12 Hours) Vital Signs Temp Pulse Pulse Resp BP BP Pulse Ox 05/16/20 14:09 94 H 124/72 89 L 05/16/20 14:00 36.7 C 95 H 89 L 05/16/20 13:09 112 H 132/83 90 05/16/20 13:00 100 H 90 05/16/20 12:09 97 H 107/71 89 L 05/16/20 12:00 37.0 C 92 H 88 L 05/16/20 11:09 108 H 99/72 L 89 L 05/16/20 11:00 36.8 C 108 H 90 05/16/20 10:27 73 23 94 05/16/20 10:09 114 H 127/87 90 05/16/20 10:00 107 H 89 L 05/16/20 09:09 72 111/75 91 05/16/20 09:00 36.7 C 76 91 05/16/20 08:12 73 23 94 05/16/20 08:09 75 123/75 93 05/16/20 08:01 05/16/20 08:00 75 92 05/16/20 07:09 55 L 105/62 91 05/16/20 07:00 36.4 C L 57 L 68 24 105/62 92 05/16/20 06:10 54 L 94 05/16/20 06:00 51 L 22 132/75 93 05/16/20 05:30 56 L 22 92 05/16/20 05:00 55 L 22 118/66 92 05/16/20 04:30 64 22 94 05/16/20 04:00 36 C L 72 22 127/80 92 05/16/20 03:30 79 24 95 Pulse Ox 05/16/20 14:09 05/16/20 14:00 05/16/20 13:09 05/16/20 13:00 05/16/20 12:09 05/16/20 12:00 05/16/20 11:09 05/16/20 11:00 05/16/20 10:27 05/16/20 10:09 05/16/20 10:00 05/16/20 09:09 05/16/20 09:00 05/16/20 08:12 05/16/20 08:09 05/16/20 08:01 92 05/16/20 08:00 05/16/20 07:09 05/16/20 07:00 05/16/20 06:10 05/16/20 06:00 05/16/20 05:30 05/16/20 05:00 05/16/20 04:30 05/16/20 04:00 05/16/20 03:30 PG Care Time/CCT Total # of Minutes Spent Total Time Spent with Patient: Total time spent is greater than 50% in coord ination of care (as documented) at patient's floor/unit and/or counseling patient: Coding Level of Care Code 90524 Subseq Hosp Care Lvl 3 Diagnoses COVID-19 U07.1 Acute respiratory failure with hypoxia J96.01 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
[2020-05-16] MEDS: PROPOFOL BOLUS FROM BAG IV PRN (15:36)
[2020-05-16] MEDS: traZODone HCL 100 MG TAB PO SCH (20:07)
[2020-05-16] MEDS: CHOLECALCIFEROL 1,000 UNITS 25 MCG TAB PO SCH (20:08)
[2020-05-16] MEDS: TOPIRAMATE 100 MG TAB PO SCH (20:08)
[2020-05-16] MEDS: CISATRACURIUM BESYLATE 40 MG in 0.9 % SODIUM CHLORIDE 80 ML IV SCH (20:37)
[2020-05-16 23:28] LABS: iSTAT Arterial Blood Gas HCO3 26 meg/L (19-24); iSTAT Arterial Blood Gas pCO2 39 mmHg (35-46); iSTAT Arterial Blood Gas pH 7.43 (7.35-7.45); iSTAT Arterial Blood Gas pO2 83 mmHg (80-95); iSTAT Carbon Dioxide 27 mmol/L (24-31); iSTAT Site Art Line
[2020-05-17 03:43] LABS: iSTAT Arterial Blood Gas HCO3 26 meg/L (19-24); iSTAT Arterial Blood Gas pCO2 39 mmHg (35-46); iSTAT Arterial Blood Gas pH 7.43 (7.35-7.45); iSTAT Arterial Blood Gas pO2 68 mmHg (80-95); iSTAT Carbon Dioxide 27 mmol/L (24-31); iSTAT FiO2 40 %; iSTAT Site Art Line
[2020-05-17] MEDS: propofoL 1,000 MG/100 ML VIAL IV SCH ×3 (03:45→04:58)
[2020-05-17] MEDS: DEXMEDETOMIDINE HCL 200 MCG in SODIUM CHLORIDE 0.9% 48 ML IV SCH ×2 (04:00→05:39)
[2020-05-17 04:53] LABS: Basophils # (auto) 0.01 K/uL (0-0.2); Basophils % (auto) 0.1 %; Eosinophils # (auto) 0.06 K/uL (0-0.5); Eosinophils % (auto) 0.8 %; Hematocrit (blood only) 34.1 % (37-47); Hemoglobin 11.1 g/dL (12.0-16.0); Immature Granulocytes # (auto) 0.06 K/uL (0.00-0.02); Immature Granulocytes % (auto) 0.8 %; Lymphocytes # (auto) 0.82 K/uL (1.2-3.4); Mean Corpuscular Hemoglobin 27.9 pg (25-34); Mean Corpuscular Hgb Conc 32.6 g/dL (32-36); Mean Corpuscular Volume 85.7 fL (80-100); Mean Platelet Volume 9.6 fL (7.4-10.4); Neutrophils # (auto) 6.18 K/uL (1.4-6.5); Neutrophils % (auto) 83.3 %; Platelet Count 364 K/uL (130-400); RDW Standard Deviation 40.3 fL (36.4-46.3); Red Blood Count 3.98 M/uL (4.2-5.4); White Blood Count 7.43 K/uL (4.8-10.8)
[2020-05-17] MEDS: fentaNYL DRIP 1,250 MCG/250 ML BAG IV SCH (04:57)
[2020-05-17 05:18] LABS: BUN Creatinine Ratio 32.9 (10-20); Calcium 8.7 mg/dl (8.5-10.1); Creatinine Clr Calc Pharmacy 107.5 ml/min; Est GFR (African American) 114.4; Est GFR (Non-African American) 98.7; Magnesium 2.2 mg/dl (1.8-2.4); Phosphorus 2.2 mg/dl (2.5-4.9); Potassium 3.4 mmol/L (3.5-5.1)
[2020-05-17] MEDS: OMEGA-3 (PURIFIED FISH OIL) 1 GM CAP PO SCH (07:30)
[2020-05-17] MEDS: DEXMEDETOMIDINE HCL 400 MCG in 0.9 % SODIUM CHLORIDE 96 ML IV SCH ×2 (07:36→15:02)
[2020-05-17] MEDS: ENOXAPARIN INJ 40 MG/0.4 ML SYR SQ SCH ×2 (07:37→20:40)
[2020-05-17] MEDS: POTASSIUM CHLORIDE 20 MEQ/15 ML UDC NG SCH (07:39)
--- NOTE | 2020-05-17 08:22 | XRay Report ---
XR chest 1V portable CLINICAL HISTORY: f/u COMPARISON STUDY: Chest CT May 09, 2020. Chest radiograph May 16, 2020. FINDINGS: Tip of endotracheal tube is 2.4 cm above the cassandra. Tip of nasogastric tube projects over the pylorus. Right subclavian central line is in place. There is no pneumothorax. There is no evidenc e for pneumomediastinum. No pleural effusion is noted. Cardiomediastinal silhouette is stable. Extens jackie bilateral airspace opacities have slightly progressed. IMPRESSION: 1. Satisfactory positioning of lines and tubes. 2. Slight progression of extensive bilateral airspace opacities suggestive of an infectious process. ACT 112: Negative or not required by law. Electronically signed by: Tylor Phelan M.D. 05/17/2020 8:21 AM
[2020-05-17] MEDS: DEXAMETHASONE IV SCH (08:59)
[2020-05-17] MEDS: TOPIRAMATE 50 MG TAB PO SCH (08:59)
[2020-05-17] MEDS: SODIUM CHLORIDE 0.9% IV SCH (08:59)
[2020-05-17] MEDS: CISATRACURIUM BESYLATE 40 MG in 0.9 % SODIUM CHLORIDE 80 ML IV SCH ×4 (09:03→09:06)
[2020-05-17] MEDS ORDERED: POTASSIUM PHOS 3 MMOL/1 ML INFUSION IV STA (09:37)
[2020-05-17] MEDS ORDERED: FUROSEMIDE 40 MG in SYRINGE 0 ML IV ONE (09:38)
[2020-05-17] MEDS ORDERED: POTASSIUM PHOSPHATE 30 MMOL in SODIUM CHLORIDE 0.9% 500 ML IV ONE (09:45)
--- NOTE | 2020-05-17 10:47 | Critical Care Progress Note ---
Date of Service May 17, 2020 Assessment & Plan (1) Acute respiratory failure with hypoxia: Impression: 54-year-old obese female admitted on 05/09 for COVID-19 pneumonia; admitted to the ICU on 05/14 for acute hypoxic respiratory failure. Intubated 05/14/2020 Neuro - [facility] ICU: Sedated -On Precedex -Off paralysis since 05/15/2020 - continue routine RASS - migraines: continue home Topiramate 50mg PO BID Cardiac - hemodynamically stable - continue close monitoring while in ICU Respiratory - VDRF with acute hypoxic respiratory failure due to COVID-19 PNA - S/p ARDSnet protocol - continue sedation keep RASS -1 GI - Start trophic feeds - no issues at this time RENAL/LYTES -Monitor BUNs/creatinine -Avoid nephrotoxic medications - Replace lytes as needed - strict I/Os ENDO - prediabetes (A1c 5.8 on 03/01/2020), no thyroid disease - no concerns at this time HEME - Stable H&H, continue to monitor - started on COVID-19 Lovenox dosing (40mg SQ Q12H) - continue ID - COVID-19 PNA - continue Dexamethasone - elevated procalcitonin of 0.55 on 05/09 in the setting of rapid worsening of respiratory status concerning for superimposed bacterial pneumonia -s/p a zithromycin/Ceftriaxone for total of 7 days. Last dose 05/15/2020 --Prophylaxis VTE: Lovenox GI: Protonix Lines: Right subclavian, right radial, positive Lee Diet: Trophic feed Plan: In/out: -537, urine output 2.3 L 40 mg of Lasix today. Keep the patient negative balance. She still +5 L since coming to the hospital. Hypokalemia and hypophosphatemia being replaced. Trial of extubation. Decrease dexamethasone to 10 mg for 5 more days. We will discontinue TLC as well as Lee catheter today. I have personally spent 36 minutes of critical care time in the direct management of this patient. This is a life/limb threatening event. This includes time spent evaluating patient, direct bedside care, chart review, placing orders, interpretation of diagnostic studies, discussion with consultants, patient, and family members, as well as other required patient management activities. This time is exclusive of all separately billable procedures, and teaching time and separate from and in addition to any other critical care service time. Please note the above document was generated using voice recognition software. It may contain grammatical, syntax or spelling errors. (2) Pneumonia due to COVID-19 virus: (3) Multifocal pneumonia: (4) Gastro-esophageal reflux disease without esophagitis: Admission and Anticipated Discharge Date Admission Date: May 09, 2020 Subjective Patient seen and examined at bedside. No acute distress, no adverse events overnight. Patient was on Precedex 0.8 at the time of examination Patient is RASS -1. She is following commands. Asking to take the tube out. Denies any headache. No chest pain, no belly pain. Patient was on pressure support 5/6 at the time of examination saturating well. Review of Systems Review of Systems: All systems reviewed & are unremarkable except as noted in Subjective Physical Exam Physical Exam: Constitutional: No acute distress HEENT: PERRLA, positive ETT Respiratory system: Decreased air entry bilaterally, no wheeze, no rhonchi, positive crackles bilaterally CVS: S1-S2 positive, no murmurs or gallops Abdomen: Soft, nontender, nondistended, positive bowel sounds x4, obese Extremities: +2 pulses bilaterally radialis/ dorsalis pedis, no cyanosis, no edema Neuro: Moves bilateral upper extremities actively, positive corneal, positive gag, breathing over the vent Psych: Unable to assess G/U: Positive Lee Skin: no rashes, warm and dry Lymphatic: no cervical or axillary lymphadenopathy Results & Data Results & Data ([facility]) Vital Signs (Past 12 Hours) Vital Signs Temp Pulse Resp BP Pulse Ox 05/17/20 09:25 90 23 94 05/17/20 09:09 68 129/76 96 05/17/20 09:00 70 96 05/17/20 08:09 65 128/70 96 05/17/20 08:00 93 H 94 05/17/20 07:21 76 19 96 05/17/20 07:09 69 138/79 96 05/17/20 07:00 37.4 C 74 96 05/17/20 06:40 95 H 97 05/17/20 06:39 99 H 154/102 H 96 05/17/20 06:09 68 136/79 96 05/17/20 05:09 71 135/78 96 05/17/20 04:50 81 134/78 96 05/17/20 04:38 36.8 C 05/17/20 04:22 112 H 137/85 96 05/17/20 04:09 117 H 143/85 H 95 05/17/20 03:30 117 H 20 95 05/17/20 03:09 105 H 112/74 96 05/17/20 02:09 80 135/67 95 05/17/20 01:09 96 H 132/80 96 05/17/20 00:09 100 H 138/76 96 05/17/20 00:00 37.2 C 05/16/20 23:15 113 H 20 99 05/16/20 23:09 117 H 127/79 88 L 05/17/20 04:44 05/17/20 04:44 Coding Level of Care Code Critical Care 1st 30-74 mins Diagnoses Acute respiratory failure with hypoxia J96.01 Pneumonia due to COVID-19 virus U07.1; J12.82 Multifocal pneumonia J18.9 Gastro-esophageal reflux disease without esophagitis K21.9 Time Spent (min) 36
[2020-05-17] MEDS: PANTOprazole 40 MG in SYRINGE 0 ML IV SCH (13:05)
--- NOTE | 2020-05-17 14:51 | Hospitalist Progress Note ---
Date of Service May 17, 2020 Assessment & Plan (1) COVID-19: Initially tested positive on 05/09/2020. No role for plasma or remdesivir given she is 10 days into illness. - Continue dexamethasone (though increased to 20 mg by ICU provider) - Isolation precautions - Presently on BiPap; slowly improving. (2) Acute respiratory failure with hypoxia: Due to COVID 19 pneumonia. - Defer management to critical care team. (3) 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: - Continue cevimeline 30mg PO BID as able (4) Hyperactivity of bladder: - Continue oxybutynin 15mg PO BID as able (5) Gastro-esophageal reflux disease without esophagitis: - Continue pantoprazole 40mg IV BID (6) Malnutrition: Severe protein-calorie malnutrition due to poor PO intake due to Covid. 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 Still very groggy and cannot really answer questions. Motions to have the mask taken off and will give a thumbs up to some questions. Review of Systems Review of Systems: Unobtainable due to reduced consciousness Physical Exam Constitutional: + acute distress Eyes: no eyelid abnormality and no conjunctival abnormality ENMT: external ear and nose normal, oropharynx normal Neck: trachea midline, no thyromegaly normal visual inspection Respiratory: + tachypneic Auscultation: + crackles Cardiovascular: RRR, no murmur, no edema Gastrointestinal (Abdomen): Inspection/Auscultation: abdomen normal to inspection; abdomen not distended Musculoskeletal: no cyanosis or clubbing, extremities motor strength 5/5 Skin: no rashes, warm and dry Neurologic: moves all extremities and awake Psychiatric: Orientation: alert; + not oriented to person Results & Data Results & Data ([facility]) Vital Signs (Past 12 Hours) Vital Signs Temp Pulse Resp BP Pulse Ox 05/17/20 11:40 74 21 94 05/17/20 09:25 90 23 94 05/17/20 09:09 68 129/76 96 05/17/20 09:00 70 96 05/17/20 08:09 65 128/70 96 05/17/20 08:00 93 H 94 05/17/20 07:21 76 19 96 05/17/20 07:09 69 138/79 96 05/17/20 07:00 37.4 C 74 96 05/17/20 06:40 95 H 97 05/17/20 06:39 99 H 154/102 H 96 05/17/20 06:09 68 136/79 96 05/17/20 05:09 71 135/78 96 05/17/20 04:50 81 134/78 96 05/17/20 04:38 36.8 C 05/17/20 04:22 112 H 137/85 96 05/17/20 04:09 117 H 143/85 H 95 05/17/20 03:30 117 H 20 95 05/17/20 03:09 105 H 112/74 96 PG Care Time/CCT Total # of Minutes Spent Total Time Spent with Patient: Total time spent is greater than 50% in coordination of care (as documented) at patient's floor/unit and/or counseling patient: Coding Level of Care Code 43905 Subseq Hosp Care Lvl 3 Diagnoses COVID-19 U07.1 Acute respiratory failure with hypoxia J96.01 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 K11.7 Hyperactivity of bladder N31.8 Gastro-esophageal reflux disease without esophagitis K21.9 Malnutrition E46 DVT prophylaxis Z29.9
[2020-05-17] MEDS: CHOLECALCIFEROL 1,000 UNITS 25 MCG TAB PO SCH (20:40)
[2020-05-17] MEDS: TOPIRAMATE 100 MG TAB PO SCH (20:40)
[2020-05-17] MEDS: traZODone HCL 100 MG TAB PO SCH (20:40)
[2020-05-17] MEDS: POTASSIUM CHLORIDE 10 MEQ TABCR PO SCH (20:41)
[2020-05-18 04:32] LABS: Basophils # (auto) 0.01 K/uL (0-0.2); Basophils % (auto) 0.1 %; Eosinophils # (auto) 0.02 K/uL (0-0.5); Eosinophils % (auto) 0.2 %; Hematocrit (blood only) 38.3 % (37-47); Hemoglobin 12.6 g/dL (12.0-16.0); Immature Granulocytes # (auto) 0.09 K/uL (0.00-0.02); Lymphocytes # (auto) 1.22 K/uL (1.2-3.4); Lymphocytes % (auto) 14.1 %; Mean Corpuscular Hemoglobin 28.1 pg (25-34); Mean Corpuscular Hgb Conc 32.9 g/dL (32-36); Mean Corpuscular Volume 85.3 fL (80-100); Mean Platelet Volume 9.9 fL (7.4-10.4); Monocytes # (auto) 0.39 K/uL (0.11-0.59); Monocytes % (auto) 4.5 %; Neutrophils # (auto) 6.95 K/uL (1.4-6.5); Neutrophils % (auto) 80.1 %; Platelet Count 416 K/uL (130-400); Red Blood Count 4.49 M/uL (4.2-5.4); White Blood Count 8.68 K/uL (4.8-10.8)
[2020-05-18 04:49] LABS: BUN Creatinine Ratio 34.6 (10-20); Calcium 9.1 mg/dl (8.5-10.1); Creatinine Clr Calc Pharmacy 106.8 ml/min; Est GFR (African American) 114.4; Est GFR (Non-African American) 98.7; Magnesium 2.3 mg/dl (1.8-2.4); Potassium 3.7 mmol/L (3.5-5.1)
[2020-05-18 05:02] LABS: Phosphorus 3.2 mg/dl (2.5-4.9)
[2020-05-18] MEDS: ENOXAPARIN INJ 40 MG/0.4 ML SYR SQ SCH ×2 (08:00→19:53)
[2020-05-18] MEDS: TOPIRAMATE 50 MG TAB PO SCH (08:00)
[2020-05-18] MEDS: POTASSIUM CHLORIDE 10 MEQ TABCR PO SCH (08:00)
[2020-05-18] MEDS ORDERED: dexAMETHasone 10 MG in SYRINGE 0 ML IV SCH (09:00)
--- NOTE | 2020-05-18 09:00 | XRay Report ---
XR chest 1V portable HISTORY: 54 years-old Female f/u follow-up study in a patient with pulmonary opacities COMPARISON: Chest radiograph 05/17/2020 TECHNIQUE: Portable AP view of the chest FINDINGS: The cardiac mediastinal and hilar silhouettes are unchanged. Interval extubation the lung with remova l of the enteric tube. Right subclavian central venous catheter is in unchanged positioning. No pneum othorax or large pleural effusion. Unchanged patchy bilateral airspace opacities. Degenerative change s of the shoulders and spine. IMPRESSION: 1. Interval extubation with removal of the enteric tube. 2. Unchanged multifocal airspace opacities compatible with pneumonia. ACT 112: Negative or not required by law. The above report was generated using voice recognition software. It may contain grammatical, syntax o r spelling errors. Electronically signed by: Flavio Leavitt M.D. 05/18/2020 8:59 AM
[2020-05-18] MEDS ORDERED: FUROSEMIDE 40 MG/4 ML VIAL IV ONE (10:30)
[2020-05-18] MEDS: PANTOprazole 40 MG in SYRINGE 0 ML IV SCH (11:27)
--- NOTE | 2020-05-18 12:15 | Critical Care Progress Note ---
Date of Service May 18, 2020 Assessment & Plan (1) Acute respiratory failure with hypoxia: Impression: 54-year-old obese female admitted on 05/09 for COVID-19 pneumonia; admitted to the ICU on 05/14 for acute hypoxic respiratory failure. Intubated 05/14/2020, extubated 05/17/2020 Neuro - [facility] ICU: Negative -Off paralysis since 05/15/2020 - migraines: continue home Topiramate 50mg PO BID Cardiac - hemodynamically stable - continue close monitoring while in ICU Respiratory -S/p VDRF with acute hypoxic respiratory failure due to COVID-19 PNA -Extubated 05/17/2020 - S/p ARDSnet protocol - continue sedation keep RASS -1 GI - Start trophic feeds - no issues at this time RENAL/LYTES -Monitor BUNs/creatinine -Avoid nephrotoxic medications - Replace lytes as needed - strict I/Os ENDO - prediabetes (A1c 5.8 on 03/01/2020), no thyroid disease - no concerns at this time HEME - Stable H&H, continue to monitor - started on COVID-19 Lovenox dosing (40mg SQ Q12H) - continue ID - COVID-19 PNA - continue Dexamethasone - elevated procalcitonin of 0.55 on 05/09 in the setting of rapid worsening of respiratory status concerning for superimposed bacterial pneumonia -s/p a zithromycin/Ceftriaxone for total of 7 days. Last dose 05/15/2020 --Prophylaxis VTE: Lovenox GI: Protonix Lines: Right subclavian, right radial, positive Lee Diet: Trophic feed Plan: In/out: -1.8 L, urine output 2483 Give 40 mg of Lasix today. Resume propranolol which will help with the blood pressure as well. Incentive spirometry Swallow eval. PT OT Discontinue A-line, TLC and Lee catheter Patient is hemodynamically stable to be downgraded to a medical floor. Please note the above document was generated using voice recognition software. It may contain grammatical, syntax or spelling errors.Any formal questions or concerns about the content, text or information contained within the body of thi s dictation should be directly addressed to the provider for clarification. (2) Pneumonia due to COVID-19 virus: (3) Multifocal pneumonia: (4) Gastro-esophageal reflux disease without esophagitis: Admission and Anticipated Discharge Date Admission Date: May 09, 2020 Subjective Patient seen and examined at bedside. No acute distress, no adverse events overnight. Answering all the questions appropriately. Denies any headache, no chest pain, no shortness of breath. Patient feeling much better. Denies any dizziness. No belly pain. Review of Systems Review of Systems: All systems reviewed & are unremarkable except as noted in Subjective Physical Exam Physical Exam: Constitutional: No acute distress HEENT: PERRLA Respiratory system: Decreased air entry bilaterally, no wheeze, no rhonchi, positive crackles bilaterally CVS: S1-S2 positive, no murmurs or gallops Abdomen: Soft, nontender, nondistended, positive bowel sounds x4, obese Extremities: +2 pulses bilaterally radialis/ dorsalis pedis, no cyanosis, no edema Neuro: Awake alert oriented x3 Psych: Normal mood and affect G/U: Positive Lee Skin: no rashes, warm and dry Lymphatic: no cervical or axillary lymphadenopathy Results & Data Results & Data ([facility]) Vital Signs (Past 12 Hours) Vital Signs Temp Pulse Resp BP Pulse Ox 05/18/20 11:58 152/109 H 05/18/20 11:10 108 H 128/81 94 05/18/20 10:10 111 H 157/99 H 95 05/18/20 09:00 114 H 93 05/18/20 08:31 36.9 C 117 H 05/18/20 08:00 115 H 97 05/18/20 07:10 112 H 131/86 99 05/18/20 06:10 112 H 137/79 96 05/18/20 06:00 107 H 96 05/18/20 05:11 111 H 97 05/18/20 05:10 112 H 23 134/79 97 05/18/20 04:10 105 H 18 155/95 H 95 05/18/20 04:00 37.1 C 05/18/20 03:09 103 H 20 140/92 95 05/18/20 02:10 100 H 22 151/93 H 96 05/18/20 01:09 99 H 18 136/91 98 05/18/20 04:08 05/18/20 04:08 Coding Level of Care Code 19114 Subseq Hosp Care Lvl 3 Diagnoses Acute respiratory failure with hypoxia J96.01 Pneumonia due to COVID-19 virus U07.1; J12.82 Multifocal pneumonia J18.9 Gastro-esophageal reflux disease without esophagitis K21.9
--- NOTE | 2020-05-18 13:20 | Hospitalist Progress Note ---
Date of Service May 18, 2020 Assessment & Plan (1) COVID-19: Initially tested positive on 05/09/2020. No role for plasma or remdesivir given she is 10 days into illness. - Finished ceftriaxone & azithromycin x 7 days (End date: 05/15) - Finish dexamethasone tomorrow - Isolation precautions - Presently on nasal cannula. In recovery period and will work with PT/OT/TOBACCO CUTTER/dietary to increase intake and strength. (2) Acute respiratory failure with hypoxia: Due to COVID 19 pneumonia. 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 - Continue home propranolol & topiramate - Sumatriptan PRN (7) Malnutrition: Severe protein-calorie malnutrition due to poor PO intake due to Covid. - Class A Lineman consult - Improve nutrition as able (8) DVT prophylaxis: Lovenox 40 mg SQ BID per hospital protocol Admission and Anticipated Discharge Date Admission Date: May 09, 2020 Subjective Doing better today. Weak. Not very hungry. Reports no fevers/chills, chest pain, shortness of breath, abdominal pain, nausea, or vomiting. Physical Exam Constitutional: + acute distress Eyes: no eyelid abnormality and no conjunctival abnormality ENMT: external ear and nose normal, oropharynx normal Neck: trachea midline, no thyromegaly normal visual inspection Respiratory: + tachypneic Auscultation: + crackles Cardiovascular: Rate/Rhythm: regular rhythm and + tachycardic Heart Sounds: normal S1 and normal S2 Extremities: no edema Gastrointestinal (Abdomen): Inspection/Auscultation: abdomen normal to inspection; abdomen not distended Musculoskeletal: no cyanosis or clubbing, extremities motor strength 5/5 Skin: no rashes, warm and dry Neurologic: moves all extremities and awake Psychiatric: Orientation: alert and oriented to person Results & Data Results & Data ([facility]) Vital Signs (Past 12 Hours) Vital Signs Temp Pulse Resp BP Pulse Ox 05/18/20 11:58 152/109 H 05/18/20 11:10 108 H 128/81 94 05/18/20 10:10 111 H 157/99 H 95 05/18/20 09:00 114 H 93 05/18/20 08:31 36.9 C 117 H 05/18/20 08:00 115 H 97 05/18/20 07:10 112 H 131/86 99 05/18/20 06:10 112 H 137/79 96 05/18/20 06:00 107 H 96 05/18/20 05:11 111 H 97 05/18/20 05:10 112 H 23 134/79 97 05/18/20 04:10 105 H 18 155/95 H 95 05/18/20 04:00 37.1 C 05/18/20 03:09 103 H 20 140/92 95 05/18/20 02:10 100 H 22 151/93 H 96 PG Care Time/CCT Total # of Minutes Spent Total Time Spent with Patient: Total time spent is greater than 50% in coordination of care (as documented) at patient's floor/unit and/or counseling patient: Coding Level of Care Code 14840 Subseq Hosp Care Lvl 3 Diagnoses COVID-19 U07.1 Acute respiratory failure with hypoxia J96.01 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
[2020-05-18] MEDS ORDERED: PROPRANOLOL HCL 60 MG LA CAP PO STA (17:08)
[2020-05-18] MEDS: traZODone HCL 100 MG TAB PO SCH (19:53)
[2020-05-18] MEDS: CHOLECALCIFEROL 1,000 UNITS 25 MCG TAB PO SCH (19:54)
[2020-05-18] MEDS: CETIRIZINE HCL 10 MG TABLET PO SCH (19:54)
[2020-05-18] MEDS: TOPIRAMATE 100 MG TAB PO SCH (19:54)
[2020-05-18] MEDS: MELATONIN 3 MG TAB PO SCH (20:02)
[2020-05-19 07:30] LABS: Basophils # (auto) 0.02 K/uL (0-0.2); Basophils % (auto) 0.2 %; Eosinophils # (auto) 0.07 K/uL (0-0.5); Eosinophils % (auto) 0.7 %; Hematocrit (blood only) 40.7 % (37-47); Hemoglobin 13.7 g/dL (12.0-16.0); Immature Granulocytes # (auto) 0.09 K/uL (0.00-0.02); Immature Granulocytes % (auto) 0.9 %; Lymphocytes # (auto) 1.63 K/uL (1.2-3.4); Lymphocytes % (auto) 16.9 %; Mean Corpuscular Hemoglobin 29.1 pg (25-34); Mean Corpuscular Hgb Conc 33.7 g/dL (32-36); Mean Corpuscular Volume 86.4 fL (80-100); Mean Platelet Volume 9.9 fL (7.4-10.4); Monocytes # (auto) 0.51 K/uL (0.11-0.59); Monocytes % (auto) 5.3 %; Neutrophils # (auto) 7.31 K/uL (1.4-6.5); Platelet Count 448 K/uL (130-400); RDW Coefficient of Variation 13.6 % (11.5-14.5); RDW Standard Deviation 42.5 fL (36.4-46.3); Red Blood Count 4.71 M/uL (4.2-5.4); White Blood Count 9.63 K/uL (4.8-10.8)
[2020-05-19 07:56] LABS: BUN Creatinine Ratio 39.7 (10-20); Calcium 10.2 mg/dl (8.5-10.1); Creatinine Clr Calc Pharmacy 87.2 ml/min; Est GFR (African American) 95.4; Est GFR (Non-African American) 82.3; Magnesium 2.5 mg/dl (1.8-2.4); Potassium 3.2 mmol/L (3.5-5.1)
[2020-05-19 07:57] LABS: Phosphorus 3.4 mg/dl (2.5-4.9)
[2020-05-19] MEDS: ENOXAPARIN INJ 40 MG/0.4 ML SYR SQ SCH ×2 (08:35→20:07)
[2020-05-19] MEDS: OXYBUTYNIN CHLORIDE XL 5 MG TABCR PO SCH (08:35)
[2020-05-19] MEDS: TOPIRAMATE 50 MG TAB PO SCH (08:36)
[2020-05-19] MEDS: dexAMETHasone 4 MG TAB PO SCH (08:36)
[2020-05-19] MEDS: PROPRANOLOL HCL 60 MG LA CAP PO SCH (08:36)
[2020-05-19] MEDS: CETIRIZINE HCL 10 MG TABLET PO SCH ×2 (08:37→20:08)
[2020-05-19] MEDS: OMEGA-3 (PURIFIED FISH OIL) 1 GM CAP PO SCH (08:37)
[2020-05-19] MEDS: PANTOprazole 40 MG TAB PO SCH (08:37)
[2020-05-19] MEDS ORDERED: dexAMETHasone 6 MG in SYRINGE 0 ML IV SCH (09:00)
--- NOTE | 2020-05-19 13:49 | Hospitalist Progress Note ---
Date of Service May 19, 2020 Assessment & Plan (1) COVID-19: Initially tested positive on 05/09/2020. No role for plasma or remdesivir given she is 10 days into illness. - Finished ceftriaxone & azithromycin x 7 days (End date: 05/15) - Finish dexamethasone on 05/20 - Off isolation precautions - Presently on nasal cannula. In recovery period and will work with PT/OT/METAL MINER BLASTING/dietary to increase intake and strength. (2) Acute respiratory failure with hypoxia: Due to COVID 19 pneumonia. - Continue oxygen as needed (3) Afib: Short episode of afib on 05/18 at 16:47. Lasted 5 minutes. Discussed with cardiology. With run <6 minutes, stroke risk is not substanially elevated. 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 - Continue home propranolol & topiramate - Sumatriptan PRN (8) Malnutrition: Severe protein-calorie malnutrition due to poor PO intake due to Covid. - Assistant Golf Course Superintendent consult - Improve nutrition as able -> Patient still struggling to intake much protein/fat. Declining protein shakes/nutritional supplements for now. (9) DVT prophylaxis: Lovenox 40 mg SQ BID per hospital protocol Admission and Anticipated Discharge Date Admission Date: May 09, 2020 Subjective Very tired today. Not much shortness of breath today. Cough is improving. Repo rts no fevers/chills, chest pain, abdominal pain, nausea, or vomiting. Physical Exam Constitutional: + acute distress Eyes: no eyelid abnormality and no conjunctival abnormality ENMT: external ear and nose normal, oropharynx normal Neck: trachea midline, no thyromegaly normal visual inspection Respiratory: + tachypneic Auscultation: + crackles Cardiovascular: RRR, no murmur, no edema Rate/Rhythm: regular rhythm and + tachycardic Heart Sounds: normal S1 and normal S2 Extremities: no edema Gastrointestinal (Abdomen): Inspection/Auscultation: abdomen normal to inspection; abdomen not distended Musculoskeletal: no cyanosis or clubbing, extremities motor strength 5/5 Skin: no rashes, warm and dry Neurologic: moves all extremities and awake Psychiatric: Orientation: alert and oriented to person Results & Data Results & Data ([facility]) Vital Signs (Past 12 Hours) Vital Signs Temp Pulse Pulse Resp BP Pulse Ox 05/19/20 11:49 36.7 C 99 H 19 115/86 92 05/19/20 08:44 94 H 05/19/20 07:26 36.9 C 82 20 130/87 91 05/19/20 03:10 36.9 C 82 18 137/92 92 PG Care Time/CCT Total # of Minutes Spent Total Time Spent with Patient: Total time spent is greater than 50% in coordination of care (as documented) at patient's floor/unit and/or counseling patient: Coding Level of Care Code 14124 Subseq Hosp Care Lvl 3 Diagnoses COVID-19 U07.1 Acute respiratory failure with hypoxia J96.01 Afib I48.91 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
[2020-05-19] MEDS ORDERED: POTASSIUM CHLORIDE CRTAB 20 MEQ TABCR PO STA (13:50)
[2020-05-19] MEDS ORDERED: FLUCONAZOLE 50 MG TAB PO ONE (17:15)
[2020-05-19] MEDS: MELATONIN 3 MG TAB PO SCH (20:06)
[2020-05-19] MEDS: TOPIRAMATE 100 MG TAB PO SCH (20:07)
[2020-05-19] MEDS: CHOLECALCIFEROL 1,000 UNITS 25 MCG TAB PO SCH (20:07)
[2020-05-19] MEDS: traZODone HCL 100 MG TAB PO SCH (20:08)
[2020-05-20 06:23] LABS: Hematocrit (blood only) 40.4 % (37-47); Hemoglobin 13.5 g/dL (12.0-16.0); Mean Corpuscular Hemoglobin 28.8 pg (25-34); Mean Corpuscular Hgb Conc 33.4 g/dL (32-36); Mean Corpuscular Volume 86.3 fL (80-100); Mean Platelet Volume 10.2 fL (7.4-10.4); Platelet Count 408 K/uL (130-400); RDW Coefficient of Variation 13.5 % (11.5-14.5); RDW Standard Deviation 41.9 fL (36.4-46.3); Red Blood Count 4.68 M/uL (4.2-5.4); White Blood Count 10.21 K/uL (4.8-10.8)
[2020-05-20 06:55] LABS: BUN Creatinine Ratio 36.7 (10-20); Calcium 9.5 mg/dl (8.5-10.1); Creatinine Clr Calc Pharmacy 93.2 ml/min; Est GFR (African American) 103.1; Est GFR (Non-African American) 88.9; Magnesium 2.2 mg/dl (1.8-2.4); Potassium 3.8 mmol/L (3.5-5.1)
[2020-05-20] MEDS: PANTOprazole 40 MG TAB PO SCH (08:34)
[2020-05-20] MEDS: OXYBUTYNIN CHLORIDE XL 5 MG TABCR PO SCH (08:34)
[2020-05-20] MEDS: TOPIRAMATE 50 MG TAB PO SCH (08:34)
[2020-05-20] MEDS: ENOXAPARIN INJ 40 MG/0.4 ML SYR SQ SCH ×2 (08:35→20:58)
[2020-05-20] MEDS: CETIRIZINE HCL 10 MG TABLET PO SCH ×2 (08:35→20:57)
[2020-05-20] MEDS: OMEGA-3 (PURIFIED FISH OIL) 1 GM CAP PO SCH (08:35)
[2020-05-20] MEDS: dexAMETHasone 4 MG TAB PO SCH (08:35)
[2020-05-20] MEDS: PROPRANOLOL HCL 60 MG LA CAP PO SCH (08:36)
--- NOTE | 2020-05-20 13:33 | Hospitalist Progress Note ---
Date of Service May 20, 2020 Assessment & Plan (1) COVID-19: Initially tested positive on 05/09/2020. No role for plasma or remdesivir given she is 10 days into illness. - Finished ceftriaxone & azithromycin x 7 days (End date: 05/15) - Finished dexamethasone on 05/20 - Off isolation precautions though still in 2E due to bed availability. - Presently on nasal cannula. In recovery period and will work with PT/OT/CUT OFF SAWYER/dietary to increase intake and strength. Dispo: Very much wants to go home, but really not able to walk enough to do this (at least per PT note on 05/19). open to rehab. Encouraged her to work hard in the room and can assess on a daily basis. Her nutrition is improving daily, so possible she could go home in 1-2 days. (2) Acute respiratory failure with hypoxia: Due to COVID 19 pneumonia. - Continue oxygen as needed (3) Afib: Short episode of afib on 05/18 at 16:47. Lasted 5 minutes. Discussed with cardiology. With run <6 minutes, stroke risk is not substanially elevated. - Restarted home propranolol - Continue telemetry monitoring - No further episodes. 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 - Continue home propranolol & topiramate - Sumatriptan PRN (8) Malnutrition: Severe protein-calorie malnutrition due to poor PO intake due to Covid. - Director Marketing Analytics consult - Improve nutrition as able -> Getting better daily (9) DVT prophylaxis: Lovenox 40 mg SQ BID per hospital protocol Admission and Anticipated Discharge Date Admission Date: May 09, 2020 Subjective Feeling more energetic today. Less shortness of breath. Reports no fevers/chills, chest pain, abdominal pain, nausea, or vomiting. Physical Exam Constitutional: + acute distress Eyes: no eyelid abnormality and no conjunctival abnormality ENMT: external ear and nose normal, oropharynx normal Neck: trachea midline, no thyromegaly normal visual inspection Respiratory: + tachypneic Auscultation: + crackles Cardiovascular: RRR, no murmur, no edema Rate/Rhythm: regular rhythm and + tachycardic Heart Sounds: normal S1 and normal S2 Extremities: no edema Gastrointestinal (Abdomen): Inspection/Auscultation: abdomen normal to inspection; abdomen not distended Musculoskeletal: no cyanosis or clubbing, extremities motor strength 5/5 Skin: no rashes, warm and dry Neurologic: moves all extremities and awake Psychiatric: Orientation: alert and oriented to person Results & Data Results & Data ([facility]) Vital Signs (Past 12 Hours) Vital Signs Temp Pulse Pulse Pulse Resp BP Pulse Ox 05/20/20 11:37 36.7 C 91 H 18 125/86 91 05/20/20 08:00 89 05/20/20 07:45 36.9 C 71 20 113/72 88 L 05/20/20 03:10 36.7 C 79 20 120/87 97 PG Care Time/CCT Total # of Minutes Spent Total Time Spent with Patient: Total time spent is greater than 50% in coordination of care (as documented) at patient's floor/unit and/or counseling patient: Coding Level of Care Code 37337 Subseq Hosp Care Lvl 2 Diagnoses COVID-19 U07.1 Acute respiratory failure with hypoxia J96.01 Afib I48.91 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
[2020-05-20] MEDS: TOPIRAMATE 100 MG TAB PO SCH (20:57)
[2020-05-20] MEDS: MELATONIN 3 MG TAB PO SCH (20:58)
[2020-05-20] MEDS: CHOLECALCIFEROL 1,000 UNITS 25 MCG TAB PO SCH (20:58)
[2020-05-20] MEDS: traZODone HCL 100 MG TAB PO SCH (21:00)
[2020-05-20] MEDS: NYSTATIN CR 15 GM TUBE EXT SCH (21:04)
[2020-05-20] MEDS ORDERED: Nursing to Pharmacy Communication SCH (21:45)
[2020-05-21] MEDS: PROPRANOLOL HCL 60 MG LA CAP PO SCH (07:44)
[2020-05-21] MEDS: OXYBUTYNIN CHLORIDE XL 5 MG TABCR PO SCH (07:44)
[2020-05-21] MEDS: OMEGA-3 (PURIFIED FISH OIL) 1 GM CAP PO SCH (07:45)
[2020-05-21] MEDS: ENOXAPARIN INJ 40 MG/0.4 ML SYR SQ SCH ×2 (07:45→20:04)
[2020-05-21] MEDS: NYSTATIN CR 15 GM TUBE EXT SCH ×2 (07:45→20:05)
[2020-05-21] MEDS: PANTOprazole 40 MG TAB PO SCH (07:45)
[2020-05-21] MEDS: CETIRIZINE HCL 10 MG TABLET PO SCH ×2 (07:46→20:04)
[2020-05-21] MEDS: TOPIRAMATE 50 MG TAB PO SCH (07:46)
[2020-05-21 07:47] LABS: Creatinine Clr Calc Pharmacy 92.5 ml/min; Est GFR (African American) 99.9; Est GFR (Non-African American) 86.2
[2020-05-21] MEDS: BENZONATATE 100 MG CAPSULE PO PRN ×2 (16:37→21:09)
[2020-05-21] MEDS: MELATONIN 3 MG TAB PO SCH (20:03)
[2020-05-21] MEDS: TOPIRAMATE 100 MG TAB PO SCH (20:04)
[2020-05-21] MEDS: CHOLECALCIFEROL 1,000 UNITS 25 MCG TAB PO SCH (20:04)
[2020-05-21] MEDS: traZODone HCL 100 MG TAB PO SCH (20:04)
--- NOTE | 2020-05-21 20:25 | Hospitalist Progress Note ---
Date of Service May 21, 2020 Assessment & Plan (1) COVID-19: Initially tested positive on 05/09/2020. No role for plasma or remdesivir given she is 10 days into illness. - Finished ceftriaxone & azithromycin x 7 days (End date: 05/15) - Finished dexamethasone on 05/20 - Off isolation precautions though still in 2E due to bed availability. - Presently on nasal cannula. In recovery period and will work with PT/OT/BARGE LOADER/dietary to increase intake and strength. -still on oxygen, hoping to get her off nasal cannula. on 05/21 Dispo: Very much wants to go home, but really not able to walk enough to do this (at least per PT note on 05/19). open to rehab. Encouraged her to work hard in the room and can assess on a daily basis. Her nutrition is improving daily, so possible she could go home in 1-2 days. (2) Acute respiratory failure with hypoxia: Due to COVID 19 pneumonia. - Continue oxygen as needed (3) Afib: Short episode of afib on 05/18 at 16:47. Lasted 5 minutes. Discussed with cardiology. With run <6 minutes, stroke risk is not substanially elevated. - Restarted home propranolol - Continue telemetry monitoring - No further episodes. 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 - Continue home propranolol & topiramate - Sumatriptan PRN (8) Malnutrition: Severe protein-calorie malnutrition due to poor PO intake due to Covid. - Delivery Nurse consult - Improve nutrition as able -> Getting better daily (9) DVT prophylaxis: Lovenox 40 mg SQ BID per hospital protocol Admission and Anticipated Discharge Date Admission Date: May 09, 2020 Subjective 54 yo female reports feeling better. Not back at baseline and is requiring oxygen. Review of Systems Review of Systems: All systems reviewed & are unremarkable except as noted in HPI & below Physical Exam Physical Exam: Constitutional: not in any acute distress Eyes: no eyelid abnormality and no conjunctival abnormality ENMT: external ear and nose normal, oropharynx normal Neck: trachea midline, no thyromegaly normal visual inspection Respiratory: + tachypneic Auscultation: + crackles Cardiovascular: \RRR, no murmur, no edema Rate/Rhythm: regular rhythm and + tachycardic Heart Sounds: normal S1 and normal S2 Extremities: no edema Gastrointestinal (Abdomen): Inspection/Auscultation: abdomen normal to inspection; abdomen not distended Musculoskeletal: no cyanosis or clubbing, extremities motor strength 5/5 Skin: no rashes, warm and dry Neurologic: moves all extremities and awake Psychiatric: Orientation: alert and oriented to person Results & Data Results & Data ([facility]) Vital Signs (Past 12 Hours) Vital Signs Temp Pulse Pulse Resp BP Pulse Ox 05/21/20 19:35 36.8 C 80 20 109/75 93 05/21/20 15:09 36.8 C 86 18 100/67 95 05/21/20 14:20 84 05/21/20 12:00 37 C 92 H 18 105/73 96 PG Care Time/CCT Total # of Minutes Spent Total Time Spent with Patient: Total time spent is greater than 50% in coordination of care (as documented) at patient's floor/unit and/or counseling patient: Coding Level of Care Code 39265 Subseq Hosp Care Lvl 3 Diagnoses COVID-19 U07.1 Acute respiratory failure with hypoxia J96.01 Afib I48.91 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
[2020-05-22] MEDS: BENZONATATE 100 MG CAPSULE PO PRN ×2 (06:01→16:09)
[2020-05-22] MEDS: PANTOprazole 40 MG TAB PO SCH (08:49)
[2020-05-22] MEDS: NYSTATIN CR 15 GM TUBE EXT SCH (08:49)
[2020-05-22] MEDS: PROPRANOLOL HCL 60 MG LA CAP PO SCH (08:49)
[2020-05-22] MEDS: TOPIRAMATE 50 MG TAB PO SCH (08:49)
[2020-05-22] MEDS: OMEGA-3 (PURIFIED FISH OIL) 1 GM CAP PO SCH (08:49)
[2020-05-22] MEDS: OXYBUTYNIN CHLORIDE XL 5 MG TABCR PO SCH (08:49)
[2020-05-22] MEDS: CETIRIZINE HCL 10 MG TABLET PO SCH (08:49)
[2020-05-22] MEDS: ENOXAPARIN INJ 40 MG/0.4 ML SYR SQ SCH (08:49)
[2020-05-22] MEDS ORDERED: COUGH DROP (SUGAR FREE) LOZ 24 LOZ/1 BOX BUCCAL PRN (09:59)
--- NOTE | 2020-05-29 23:41 | Discharge Summary ---
Date of Service May 22, 2020 Admission HPI Per Admitting Provider Rosa Yates is a 54-year-old female who presents to the ER with shortness of breath. She tested positive for COVID-19 on May 02 (7 days ago) and feels she is not getting any better. Symptoms since 9 days ago; cough, nausea, not eaten anything in a week, diarrhea started today, generalized myalgias, fatigue and sore throat (2 days). No ongoing fever, chills, loss of taste or smell, nasal congestion, nausea, vomi ting, chest or abdominal pain. Discussed with her over the phone and confirms rapid worsening of illness over last 2 days. Measuring her pulse ox at home which was 93% yesterday but 83% today. She did come to the ER 2 days ago and received Dexamethasone and doxycycline as well as given a albuterol inhaler (the latter of which she has not been taking. In the ER CXR concerning for multifocal airspace opacities consistent with viral pneumonia. She was started on Dexamethasone 6mg IV and due to diarrhea given NSS 2L bolus. She was referred to medicine for admission and ongoing management of hypoxia and COVID-19 pneumonia. Principal Diagnosis COVID 19 Discharge Exam Constitutional: not in any acute distress Eyes: no eyelid abnormality and no conjunctival abnormality ENMT: external ear and nose normal, oropharynx normal Neck: trachea midline, no thyromegaly normal visual inspection Respiratory: + tachypneic Auscultation: + crackles Cardiovascular: RRR, no murmur, no edema Rate/Rhythm: regular rhythm and + tachycardic Heart Sounds: normal S1 and normal S2 Extremities: no edema Gastrointestinal (Abdomen): Inspection/Auscultation: abdomen normal to inspection; abdomen not distended Musculoskeletal: no cyanosis or clubbing, extremities motor strength 5/5 Skin: no rashes, warm and dry Neurologic: moves all extremities and awake Psychiatric: Orientation: alert and oriented to person Discharge Data Allergies Allergy/AdvReac Type Severity Reaction Status Date / Time adhesive AdvReac Mild Rash Uncoded 05/26/20 09:07 Consultations 05/09/20 13:14 ED Decision to Admit Stat 05/14/20 11:07 Consult Narcotics And/Or Vice Detective Routine Ordered Studies 05/09/20 16:17 CT angio chest PE protocol Urgent Hospital Course (1) COVID-19: Initially tested positive on 05/09/2020. No role for plasma or remdesivir given she is 10 days into illness. - Finished ceftriaxone & azithromycin x 7 days (End date: 05/15) - Finished dexamethasone on 05/20 - Off isolation precautions though still in 2E due to bed availability. - Presently on nasal cannula. In recovery period and will work with PT/OT/LEAD IOS DEVELOPER/dietary to increase intake and strength. -completed 2 step, will discharge with recommendations by respiratory therapy. (2) Acute respiratory failure with hypoxia: Due to COVID 19 pneumonia. - Continue oxygen as needed (3) Afib: Short episode of afib on 05/18 at 16:47. Lasted 5 minutes. Discussed with cardiology. With run <6 minutes, stroke risk is not substanially elevated. - Restarted home propranolol - Continue telemetry monitoring - No further episodes. 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 - Continue home propranolol & topiramate - Sumatriptan PRN (8) Malnutrition: Severe protein-calorie malnutrition due to poor PO intake due to Covid. - Forklift Truck Operator consult - Improve nutrition as able -> Getting better daily (9) DVT prophylaxis: Lovenox 40 mg SQ BID per hospital protocol Total Time Total Time Spent Total Time Spent (In Minutes): 32 Total Time Includes: Examination of the Patient, Discharge Planning and Medication Reconciliation Discharge Plan Discharge Items Patient Disposition: Home - Home Health Services Reason For Visit: acute hypoxic resp failure covid-19 pneumonia Discharge Diagnosis: COVID 19 Pneumonia Activity: Resume your previous activity Lifting: No more than 50 pounds Non-emergency contact: Primary Care Provider Call non-emergency contact if: you have any medication questions Follow-up/Referrals: Jose De Jesus Pierce DO [Primary Care Provider] - 05/26/20 9:20 am Diet: Regular Addtl Attending Provider Instructions: You were treated for COVID-19. You completed treatment and are now in recovery. Continue to ambulate. You will be discharged on 2 liters nasal cannula on exertion and on ambulation. Continue to use your incentive spirometry. If you develop worsening of SOB and fever , chills. Please call your primary care doctor during the day or return to ER during night. Pending Studies at Discharge: No Stand-Alone Forms: [facility], Smoking Cessation Medications and DC Order Prescriptions: New benzonatate [Tessalon Perles] 100 mg Capsule 100 mg PO TID PRN (Reason: cough) Qty: 20 RF: 0 Continued valacyclovir 1 gram tablet 2,000 mg PO DAILY PRN (Reason: outbreak) Qty: 12 RF: 0 cholecalciferol (vitamin D3) 50 mcg (2,000 unit) tablet 5,000 units PO HS RF: 0 sumatriptan succinate 100 mg tablet 100 mg PO UD PRN (Reason: migraine headache) RF: 0 trazodone 50 mg tablet 50 - 100 mg PO HS PRN (Reason: sleep) RF: 0 propranolol 60 mg capsule,extended release 24 hr 60 mg PO QAM RF: 0 pantoprazole 40 mg tablet,delayed release (DR/EC) 40 mg PO BID RF: 0 cevimeline 30 mg capsule 30 mg PO BID RF: 0 topiramate [Topamax] 50 mg tablet 50 - 100 mg PO BID RF: 0 Fish Oil Extra Strength 435-880 mg Capsule 2 cap PO QAM RF: 0 oxybutynin chloride 15 mg tablet extended release 24 hr 15 mg PO QAM RF: 0 Discontinued doxycycline hyclate 100 mg capsule 100 mg PO BID 7 Days Qty: 14 RF: 0 No Action promethazine-DM 6.25-15 mg/5 mL syrup 5 ml PO Q6H PRN (Reason: cough) Qty: 473 RF: 0 cetirizine [Zyrtec] 10 mg tablet 10 mg PO DAILY RF: 0 melatonin 5 mg tablet 3 mg PO HS RF: 0 Discharge Orders: Discharge Order (Routine); Ordered 05/22/20 Ordered By: Jorge Wynn Admission Data Admit Date/Time: 05/09/20 14:06 Attending Provider: Jorge Wynn Admit Provider: Rc Salgado Primary Care Provider: Jose De Jesus Pierce Other Providers: Williams Pierce ; Rc Salgado ; [facility] ; Jai De Jesus Other Interventions: Discharge Summary Assessment (RN) Last Done: 05/22/20 16:14 Coding Level of Care Code D/C Day Management >30 mins Diagnoses COVID-19 U07.1 Acute respiratory failure with hypoxia J96.01 Afib I48.91 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
--- NOTE | 2020-06-07 15:56 | Procedure Note ---
Procedure Note Date of Service May 14, 2020 Procedure Date: noted above Procedure: Endotracheal intubation Pre-procedure Diagnosis: Acute hypoxic respiratory failure Post-procedure Diagnosis: same as above Prior to Procedure: Informed Consent: emergent Attending Staff: Maciej De Jesus DO The identity of the patient was confirmed and a bedside time out was performed. Description of Procedure: Patient was evaluated and required intubation for impending respiratory failure. The patient was prepared in the usual fashion. A laryngoscope was used. A 8.0 mm inner diameter endotracheal tube was placed endotracheally to. A grade 1 view was obtained. The endotracheal tube was noted to pass through the vocal cords. Chest rise was bilateral. Bilateral breath sounds were heard without air sounds in the abdomen. Mist was noted in the endotracheal tube. End-tidal CO2 measurement was positive. Chest x-ray shows proper endotracheal tube placement. Complications: None Findings: Not applicable Specimens: Not applicable Estimated blood loss: Zero Coding CPT Codes Resuscitation - Resuscitation: [id number] Endotracheal Intubation, emergency ([id number]) [id number] Procedure Codes (Charges) Resuscitation Resuscitation: [id number] Endotracheal Intubation, emergency
== END 2020-05-22 20:32 | disposition home health service (06) | DRG 208 ==
LOC: ED 11:43 → SUATTDRO 14:06 → 2N 14:06 → 1E 05-14 08:38 → 2E 05-18 12:03 → 2N 05-20 18:13

== ENCOUNTER 2022-05-24 17:38 | Inpatient (IN) ==
[2022-05-24] MEDS ORDERED: ONDANSETRON INJ 2 MG/ML 2 ML VIAL IV STA (17:52)
[2022-05-24] MEDS ORDERED: KETOROLAC 30 MG/ML VIAL IV STA (17:52)
--- NOTE | 2022-05-24 17:55 | ED Triage Note ---
Date of Service May 24, 2022 History of Present Illness This patient was briefly evaluated while in triage. An abbreviated physical exam was performed. This patient is a 56-year-old Female who presents to the ED for evaluation of right flank pain today, patient states she went to the bathroom and then had onset of symptoms. She has had kidney stones in the left before and this feels similar, but on the right. Physical Exam VITALS: Vitals are noted on the nurse's note and reviewed by myself. Vital signs stable. GENERAL: Well-developed, well-nourished, white female, who is uncomfortable appearing but not toxic HEART: Regular rate and rhythm without murmurs gallops or rubs. LUNGS: Clear to auscultation bilaterally without wheezes, rales or rhonchi. No retractions or accessory muscle use. Initial orders for labs and / or imaging were placed and patient was placed in the waiting area until a bed is available. Please see further documentation for the full ED course.
[2022-05-24] MEDS ORDERED: SODIUM CHLORIDE 0.9% 1000ML 1,000 ML IV SCH (18:00)
[2022-05-24] MEDS ORDERED: MoRPHine SULFATE 4 MG/ML 1 ML CARP\\VIAL IV STA (18:30)
--- NOTE | 2022-05-24 18:30 | Emergency Department Note ---
Impression & Plan Renal colic, Hydronephrosis, High serum chloride, UTI (urinary tract infection) ED Provider Note NAME: ABIGAIL FABIAN AGE: 56 SEX: F : 1965 ARRIVES VIA: Walk-In INFORMANT: Patient ED PROVIDER(S): Michael Gibbs DO CHIEF COMPLAINT: flank pain HPI: Patient is a 56-year-old female who presents ER for right flank pain. This started earlier today around 430. Denies any headache or change in vision. No chest pain or shortness of breath. No nausea, vomiting, or diarrhea. Pain is fairly constant. Does not change with twisting or turning or bending. Denies any dysuria, urgency, or frequency. Previous history of total hysterectomy. PAST MEDICAL HISTORY:See Below PAST SURGICAL HISTORY:See Below FAMILY HISTORY:See Below SOCIAL HISTORY:See Below HOME MEDICATIONS:See Below ALLERGIES:See Below VITALS:See Below PHYSICAL EXAMINATION: GENERAL: Sitting up in bed, alert, well appearing, well nourished, no distress, non-toxic EYE EXAM: normal conjunctiva. OROPHARYNX: mucous membranes are moist LUNGS: Clear to auscultation. Normal chest wall mechanics HEART: no murmurs, S1 normal and S2 normal ABDOMEN: abdomen soft, non-tender, normo-active bowel sounds, no masses, no rebound or guarding. BACK: Back is symmetrical on inspection and there is no deformity, no midline tenderness, no CVA tenderness. SKIN: no rashes and no bruising UPPER EXTREMITIES: upper extremities are grossly normal. LOWER EXTREMITIES: No pitting edema. NEURO EXAM: Normal sensorium, cranial nerves II-XII grossly intact, normal speech, no gross weakness of arms, no gross weakness of legs. No drift. Finger to nose intact. Gross sensation intact. MEDICAL DECISION MAKING: Patient is a 56-year-old female who presents ER for the posted complaint. IV was established blood work was obtained. External records were reviewed. Labs show no significant leukocytosis or anemia. BMP with slightly elevated chloride at 110. LFTs bilirubin and lipase was unremarkable. UA was consistent with UTI with +2 leuks, greater than 30 white cells and only 5 epithelial cells. With this in combination with the stone patient was given IV Rocephin. She was given multiple doses of IV narcotics. She was updated bedside. Discussed with hospitalist admitted for further work-up. Triage Nursing notes reviewed. Limited review of prior medical records performed Vital Signs: reviewed and remarkable for HTN Differential diagnosis: Differential diagnoses includes but is not limited to gastritis, peptic ulcer disease, GERD, gallbladder disease, pancreatitis, small bowel obstruction, appendicitis, diverticulitis, hernia, urinary tract infection, torsion, /ectopic (if female), perforation, trauma, infectious. ER treatment provided: See below Diagnostics interpreted by me include EKG and cardiac monitoring as listed below: -Cardiac Monitoring: An order was placed for continuous cardiac monitoring. The monitor shows a rate of 80 with sinus rhythm. -ECG: none -Laboratory studies:Interpreted by me as stated above in MDM and shown below. Imaging studies: Xrays: As interpreted by me:none CTs show: Questionable right distal ureteral stone CT per radiology shows right distal UVJ stone Consultation(s): Discussed with hospitalist for further evaluation management treatment Procedures:none Critical Care: None Past Med/Surg History Medical History (Updated 05/24/22 @ 22:12 by Michael Gibbs DO) Allergic rhinitis Asthmatic bronchitis Dyspnea on exertion GERD (gastroesophageal reflux disease) GERD (gastroesophageal reflux disease) Herpes simplex Hoarseness Hx of migraines Kidney stones Long COVID Migraine without aura, not intractable, without status migrainosus propranolol for migraines Multiple pulmonary nodules determined by computed tomography of lung Osteoarthritis Osteomalacia pt unaware Positive HAYDEN (antinuclear antibody) Surgical History H/O arthroscopy of shoulder bilateral History of carpal tunnel release bilateral History of esophagogastroduodenoscopy (EGD) History of lithotripsy History of sinus surgery x2 History of tooth extraction History of total abdominal hysterectomy History of tubal ligation Family History Mother Myocardial infarction Sister Multiple sclerosis Denies family history of Colon cancer Ovarian cancer Prostate cancer Breast cancer Colorectal cancer Social History Smoking Status: Never smoker Second Hand Exposure: No; Hx Alcohol Use: Yes Alcohol type: wine Alcohol Intake Frequency: Monthly or Less Hx Substance Use: No Preferred Language: Cape Verdean Communication Ability: Effective Visual Impairment: No Limitations Hearing Ability: Normal Income Tax Manager Required: No Beliefs That Will Affect Care: None marital status: Current Living Situation: Spouse current occupational status: employed 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 How many Children do You have: 2 Other Information That Helps Us Care for You: No Feels Safe at Home: Yes Safety Concerns: Feels Safe At This Time Childhood Exposure to Second-Hand Smoke: No caffeine: Yes during the past year weight has: remained stable Dental Care, Regularly: Yes Physical Activity Frequency: 3-4 Times per Week Physical Activity Frequency Comment: walking Seatbelt Use: always Sunscreen Use: Yes Assistive Devices: Glasses Allergies Allergies Allergy/AdvReac Type Severity Reaction Status Date / Time adhesive AdvReac Mild Rash Verified 05/24/22 21:48 Home Meds Home Medications Medication Instructions Recorded Confirmed cholecalciferol (vitamin D3) 50 5,000 units PO HS 12/17/19 05/24/22 mcg (2,000 unit) tablet omega-3 fatty acids-fish oil 435 2 cap PO QAM 04/20/20 05/24/22 mg-880 mg capsule (Fish Oil Extra Strength) cetirizine 10 mg tablet (Zyrtec) 10 mg PO DAILY 05/26/20 05/24/22 melatonin 12 mg tablet 12 mg PO HS 05/24/22 05/24/22 trazodone 50 mg tablet 50 mg PO HS 05/24/22 05/24/22 Previous Rx's Medication Instructions Recorded pantoprazole 40 mg tablet,delayed 40 mg PO BID #180 tabs 06/01/21 release budesonide-formoterol HFA 80 2 puff inhalation BID #10.2 grams 11/02/21 mcg-4.5 mcg/actuation aerosol inhaler (Symbicort) sumatriptan succinate 100 mg tablet 100 mg PO .COMPLEX PRN migraine 12/17/21 headache #27 tabs montelukast 10 mg tablet 10 mg PO DAILY #90 tabs 12/28/21 (Singulair) albuterol sulfate 90 mcg/actuation 2 inh inhalation QID PRN shortness 02/27/22 aerosol inhaler of breath or wheezing #8.5 grams oxybutynin chloride 15 mg 15 mg PO DAILY #90 tabs 02/28/22 tablet,extended release 24 hr valacyclovir 1 gram tablet 2,000 mg PO DAILY PRN outbreak #12 02/28/22 tabs propranolol 60 mg capsule,24 60 mg PO QAM #90 caps 04/01/22 hr,extended release topiramate 100 mg tablet 100 mg PO BID 90 days #180 tabs 04/22/22 cevimeline 30 mg capsule 30 mg PO BID #270 caps 04/25/22 Results & Data (ED) Vital Signs Vital Signs - 24 hr 05/24/22 17:49 05/24/22 20:18 Temperature 36.9 C Temperature Source Temporal Artery Scan Pulse Rate 54 L 90 Respiratory Rate 20 18 Respiratory Effort / Characteristics Non-Labored Respiratory Depth Normal Blood Pressure 157/94 H 132/90 Blood Pressure Mean 115 104 Pulse Oximetry 99 98 Oxygen Delivery Method Room Air Room Air Sepsis Recent Fever Within 48 Hours No Sepsis New/Unexplained Change in Mental Status N/A Sepsis Action Taken by Nursing No Action Required Laboratory Data 05/24/22 18:28 05/24/22 18:28 Lab Results 05/24/22 05/24/22 05/24/22 Range/Units 18:28 18:28 19:06 WBC 9.03 (4.8-10.8) K/ul RBC 4.73 (4.20-5.40) M/uL Hgb 13.4 (12.0-16.0) g/dl Hct 41.9 (37.0-47.0) % MCV 88.6 (80.0-100.0) fL MCH 28.3 (25.0-34.0) pg MCHC 32.0 (32.0-36.0) g/dL RDW Std Deviation 43.0 (36.4-46.3) fL RDW Coeff of [place] 13.3 (11.5-14.5) % Plt Count 293 (130-400) K/uL MPV 10.2 (9.4-12.4) fL Immature Gran % (Auto) 0.3 % Neut % (Auto) 66.7 % Lymph % (Auto) 26.9 % [place] % (Auto) 4.3 % Eos % (Auto) 1.0 % Baso % (Auto) 0.8 % Neut # (Auto) 6.02 (1.40-6.50) K/uL Lymph # (Auto) 2.43 (1.2-3.4) K/uL [place] # (Auto) 0.39 (0.11-0.59) K/uL Eos # (Auto) 0.09 (0-0.50) K/uL Baso # (Auto) 0.07 (0-0.2) K/uL Immature Gran # (Auto) 0.03 (0.01-0.20) K/uL Sodium 141 (136-145) mmol/L Potassium 3.6 (3.5-5.1) mmol/L Chloride 110 H (98-107) mmol/L Carbon Dioxide 25 (21-32) mmol/L Anion Gap 6 (3-11) BUN 13 (6-23) mg/dl Creatinine 1.20 (0.6-1.2) mg/dl Est Cr Clr Drug Dosing 59.0 ml/min Est GFR ( Amer) 58.5 ml/min Est GFR (Non-Af Amer) 50.5 ml/min BUN/Creatinine Ratio 10.8 (10-20) Glucose 121 H (70-99(Fasting)) mg/dl Calcium 9.6 (8.6-10.3) mg/dl Total Bilirubin 0.4 (0.2-1.0) mg/dl AST 16 (13-39) U/L ALT 18 (7-52) U/L Alkaline Phosphatase 64 (34-104) U/L Total Protein 7.7 (6.0-8.3) gm/dl Albumin 4.5 (3.4-5.0) gm/dl Globulin 3.2 (2.5-4.0) gm/dl Albumin/Globulin Ratio 1.4 (0.9-2) Lipase 11 (11-82) U/L Urine Color Yellow Urine Appearance Turbid A (Clear) Urine pH >= 9.0 H (4.5-7.5) Ur Specific [place] 1.015 (1.000-1.030) Urine Protein Trace H (Negative) Urine Glucose (UA) Negative (Negative) Urine Ketones Negative (Negative) Urine Blood Negative (Negative) Urine Nitrite Negative (Negative) Urine Bilirubin Negative (Negative) Urine Urobilinogen Negative (Negative) Ur Leukocyte Esterase 2+ H (Negative) Urine WBC (Auto) >30 H (0-5) /hpf Urine RBC (Auto) 5-10 H (0-4) /hpf U Hyaline Cast (Auto) 1-5 (0-5) /lpf U Epithel Cells (Auto) 5-10 H (0-5) /lpf Urine Bacteria (Auto) Negative (Negative) SARS-CoV-2, RNA, NAAT (NEGATIVE) 05/24/22 Range/Units 20:15 WBC (4.8-10.8) K/ul RBC (4.20-5.40) M/uL Hgb (12.0-16.0) g/dl Hct (37.0-47.0) % MCV (80.0-100.0) fL MCH (25.0-34.0) pg MCHC (32.0-36.0) g/dL RDW Std Deviation (36.4-46.3) fL RDW Coeff of [place] (11.5-14.5) % Plt Count (130-400) K/uL MPV (9.4-12.4) fL Immature Gran % (Auto) % Neut % (Auto) % Lymph % (Auto) % [place] % (Auto) % Eos % (Auto) % Baso % (Auto) % Neut # (Auto) (1.40-6.50) K/uL Lymph # (Auto) (1.2-3.4) K/uL [place] # (Auto) (0.11-0.59) K/uL Eos # (Auto) (0-0.50) K/uL Baso # (Auto) (0-0.2) K/uL Immature Gran # (Auto) (0.01-0.20) K/uL Sodium (136-145) mmol/L Potassium (3.5-5.1) mmol/L Chloride (98-107) mmol/L Carbon Dioxide (21-32) mmol/L Anion Gap (3-11) BUN (6-23) mg/dl Creatinine (0.6-1.2) mg/dl Est Cr Clr Drug Dosing ml/min Est GFR ( Amer) ml/min Est GFR (Non-Af Amer) ml/min BUN/Creatinine Ratio (10-20) Glucose (70-99(Fasting)) mg/dl Calcium (8.6-10.3) mg/dl Total Bilirubin (0.2-1.0) mg/dl AST (13-39) U/L ALT (7-52) U/L Alkaline Phosphatase (34-104) U/L Total Protein (6.0-8.3) gm/dl Albumin (3.4-5.0) gm/dl Globulin (2.5-4.0) gm/dl Albumin/Globulin Ratio (0.9-2) Lipase (11-82) U/L Urine Color Urine Appearance (Clear) Urine pH (4.5-7.5) Ur Specific [place] (1.000-1.030) Urine Protein (Negative) Urine Glucose (UA) (Negative) Urine Ketones (Negative) Urine Blood (Negative) Urine Nitrite (Negative) Urine Bilirubin (Negative) Urine Urobilinogen (Negative) Ur Leukocyte Esterase (Negative) Urine WBC (Auto) (0-5) /hpf Urine RBC (Auto) (0-4) /hpf U Hyaline Cast (Auto) (0-5) /lpf U Epithel Cells (Auto) (0-5) /lpf Urine Bacteria (Auto) (Negative) SARS-CoV-2, RNA, NAAT NEGATIVE (NEGATIVE) Administered Medications Discontinued Medications Sodium Chloride (Nss 1000ml) 1,000 mls @ 999 mls/hr IV .Q1H1M MARY JANE Stop: 05/24/22 19:00 Last Infusion: 05/24/22 20:38 Dose: 0 mls/hr Documented By: Admin: 05/24/22 19:36 Dose: 999 mls/hr Documented By: LAURA Sodium Chloride (Nss 1000ml) 1,000 mls @ 999 mls/hr IV .Q1H1M ONE Stop: 05/24/22 19:32 Last Infusion: 05/24/22 20:00 Dose: 0 mls/hr Documented By: [facility] Admin: 05/24/22 18:35 Dose: 999 mls/hr Documented By: LAURA Ceftriaxone Sodium (Rocephin) 2,000 mg in 70 mls @ 140 mls/hr IV NOW STA Stop: 05/24/22 20:32 Last Infusion: 05/24/22 20:55 Dose: 0 mls/hr Documented By: [facility] Admin: 05/24/22 20:12 Dose: 140 mls/hr Documented By: LAURA Ketorolac Tromethamine (Ketorolac 30 Mg/Ml Vial) 30 mg IV NOW STA Stop: 05/24/22 17:53 Last Admin: 05/24/22 18:37 Dose: 30 mg Documented By: [facility] Morphine Sulfate (Morphine Sulfate 4 Mg/Ml 1 Ml Carp\Vial) 4 mg IV NOW STA Stop: 05/24/22 18:31 Last Admin: 05/24/22 18:37 Dose: 4 mg Documented By: EMEKA Morphine Sulfate (Morphine Sulfate 10 Mg/Ml Carp/Vial) 6 mg IV NOW STA Stop: 05/24/22 20:04 Last Admin: 05/24/22 20:14 Dose: 6 mg Documented By: EMEKA Ondansetron HCl (Ondansetron Inj 2 Mg/Ml 2 Ml Vial) 4 mg IV NOW STA Stop: 05/24/22 17:53 Last Admin: 05/24/22 18:36 Dose: 4 mg Documented By: LAURA Imaging Data Radiologist's Impression: Abdomen/Pelvis CT 05/24/22 17:52 CT abd pelvis wo con CLINICAL HISTORY: right flank pain, hx stones TECHNIQUE: Helical axial images of the abdomen and pelvis were obtained. Automated dose lowering techniques and/or adjustment according to patient size were utilized for this exam. This exam was performed without intravenous contrast. CT DOSE: 599.57 mGy.cm COMPARISON: Comparison is made to CT abdomen pelvis 04/27/2014 FINDINGS: Lower chest: Bibasilar atelectasis versus scarring is seen. Liver: Unremarkable. No focal lesions are seen. Gallbladder and biliary tree: No calcified gallstones. Normal caliber wall. No intra- or extrahepatic biliary ductal dilation. Pancreas: Unremarkable, no focal lesions. Spleen: Splenule is incidentally noted. Adrenals: Unremarkable. Kidneys and ureters: There is a 3 mm stone in the right UVJ with associated hydronephrosis and hydroureter. Nonobstructive stones are seen bilaterally. Bladder: Limited evaluation due to underdistention. Reproductive organs: Patient is status post hysterectomy. Bowel: Diverticulosis is seen without evidence of diverticulitis. Patient is status post appendectomy. Lymph nodes Retroperitoneal: Unremarkable. Pelvic: Unremarkable. Mesenteric: Unremarkable. Peritoneum: Normal. Vessels: Atherosclerotic calcifications are seen. Abdominal wall: Unremarkable. Bones: Unremarkable. IMPRESSION: Obstructive 3 mm UVJ stone on the right with associated hydronephrosis/hydroureter. Nonobstructive stones are also seen. ACT 112: Negative or not required by law. Electronically signed by: Doug Rudd M.D. 05/24/2022 7:21 PM Discharge Plan Visit Data Chief Complaint: Kidney Stone Stated Complaint: KIDNEY STONE ED Provider: Michael Gibbs Discharge Problem: Renal colic, Hydronephrosis, High serum chloride, UTI (urinary tract infection) Patient Disposition: Admitted As Inpatient Discharge Instructions Interventions: ED Discharge Assessment Last Done: 05/24/22 21:49
[2022-05-24] MEDS ORDERED: SODIUM CHLORIDE 0.9% 1000ML 1,000 ML IV ONE (18:32)
[2022-05-24 18:50] LABS: Basophils # (auto) 0.07 K/uL (0-0.2); Basophils % (auto) 0.8 %; Eosinophils # (auto) 0.09 K/uL (0-0.50); Hematocrit (blood only) 41.9 % (37.0-47.0); Hemoglobin 13.4 g/dl (12.0-16.0); Immature Granulocytes # (auto) 0.03 K/uL (0.01-0.20); Immature Granulocytes % (auto) 0.3 %; Lymphocytes # (auto) 2.43 K/uL (1.2-3.4); Lymphocytes % (auto) 26.9 %; Mean Corpuscular Hemoglobin 28.3 pg (25.0-34.0); Mean Corpuscular Volume 88.6 fL (80.0-100.0); Mean Platelet Volume 10.2 fL (9.4-12.4); Monocytes # (auto) 0.39 K/uL (0.11-0.59); Monocytes % (auto) 4.3 %; Neutrophils # (auto) 6.02 K/uL (1.40-6.50); Neutrophils % (auto) 66.7 %; Platelet Count 293 K/uL (130-400); RDW Coefficient of Variation 13.3 % (11.5-14.5); Red Blood Count 4.73 M/uL (4.20-5.40); White Blood Count 9.03 K/ul (4.8-10.8)
[2022-05-24 19:02] LABS: Albumin Globulin Ratio 1.4 (0.9-2); Albumin Level 4.5 gm/dl (3.4-5.0); BUN Creatinine Ratio 10.8 (10-20); Bilirubin,Total 0.4 mg/dl (0.2-1.0); Calcium 9.6 mg/dl (8.6-10.3); Est GFR (African American) 58.5 ml/min; Est GFR (Non-African American) 50.5 ml/min; Globulin 3.2 gm/dl (2.5-4.0); Potassium 3.6 mmol/L (3.5-5.1); Total Protein 7.7 gm/dl (6.0-8.3)
--- NOTE | 2022-05-24 19:23 | CT Scan Report ---
CT abd pelvis wo con CLINICAL HISTORY: right flank pain, hx stones TECHNIQUE: Helical axial images of the abdomen and pelvis were obtained. Automated dose lowering tech niques and/or adjustment according to patient size were utilized for this exam. This exam was perfor med without intravenous contrast. CT DOSE: 599.57 mGy.cm COMPARISON: Comparison is made to CT abdomen pelvis 04/27/2014 FINDINGS: Lower chest: Bibasilar atelectasis versus scarring is seen. Liver: Unremarkable. No focal lesions are seen. Gallbladder and biliary tree: No calcified gallstones. Normal caliber wall. No intra- or extrahepatic biliary ductal dilation. Pancreas: Unremarkable, no focal lesions. Spleen: Splenule is incidentally noted. Adrenals: Unremarkable. Kidneys and ureters: There is a 3 mm stone in the right UVJ with associated hydronephrosis and hydrou reter. Nonobstructive stones are seen bilaterally. Bladder: Limited evaluation due to underdistention. Reproductive organs: Patient is status post hysterectomy. Bowel: Diverticulosis is seen without evidence of diverticulitis. Patient is status post appendectomy . Lymph nodes Retroperitoneal: Unremarkable. Pelvic: Unremarkable. Mesenteric: Unremarkable. Peritoneum: Normal. Vessels: Atherosclerotic calcifications are seen. Abdominal wall: Unremarkable. Bones: Unremarkable. IMPRESSION: Obstructive 3 mm UVJ stone on the right with associated hydronephrosis/hydroureter. Nonobstructive st ones are also seen. ACT 112: Negative or not required by law. Electronically signed by: Doug Rudd M.D. 05/24/2022 7:21 PM
[2022-05-24 19:36] LABS: Appearance Urine Turbid (Clear); Bacteria Urine Automated Negative (Negative); Bilirubin Urine Negative (Negative); Blood Urine Negative (Negative); Color Urine Yellow; Glucose Urine UA Negative (Negative); Ketones Urine Negative (Negative); Leukocyte Esterase Urine 2+ (Negative); Nitrite Urine Negative (Negative); Specific Gravity Urine 1.015 (1.000-1.030); Urobilinogen Urine Negative (Negative); WBC Urine Automated >30 /hpf (0-5); pH Urine >= 9.0 (4.5-7.5)
[2022-05-24 19:37] LABS: Protein Urine Trace (Negative)
[2022-05-24] MEDS ORDERED: cefTRIAXone SODIUM 2,000 MG/70 ML BAG IV STA (20:03)
[2022-05-24] MEDS ORDERED: MoRPHine SULFATE 10 MG/ML CARP/VIAL IV STA (20:03)
--- NOTE | 2022-05-24 20:39 | History & Physical Report ---
Date of Service May 24, 2022 Assessment & Plan (1) Right nephrolithiasis: Plan: 56yo Female with PMH GERD obesity prediabetes migraines here for right sided nephrolithiasis. () Right sided nephrolithiasis with hydronephrosis -CT A/P: Obstructive 3 mm UVJ stone on the right with associated hydronephrosis/hydroureter. Nonobstructive stones are also seen. -received NSS 2L, ceftriaxone 2g, ketorolac and morphine total 10mg IV in ED -admit to med/surg -urology consulted given hydronephrosis -started flomax 0.4mg daily -NPO after midnight ()Insomnia -continue home melatonin, trazodone ()GERD -continue protonix 40mg BID ()Migraine -continue home propranolol, topiramate, PRN sumatriptan ()Dry mouth -continue home cevimeline ()Dyspnea -continue home budesonide-formoterol -PRN albuterol ()Allergic Rhinitis -continue home cetirizine, montelukast FENa: regular, npo midnight Code Status: full DVT PPX: ambulatory Dispo: med/surg Rosi Mejia D.O. PGY 2, FCM (2) Hydronephrosis: (3) Hyperactivity of bladder: (4) Migraine without aura, not intractable, without status migrainosus: (5) Allergic rhinitis: (6) Insomnia: (7) Chronic constipation: (8) Vitamin D deficiency: (9) GERD (gastroesophageal reflux disease): History of Present Illness Chief Complaint: kidney stone Primary Care Provider: Jose De Jesus Pierce, 56yo Female with PMH GERD obesity prediabetes migraines here for right sided nephrolithiasis. Patient states she was at work today, came back from bathroom and noted right sided back pain constant, states it felt like her prior kidney stone in 2013 so came to ED. States pain was relieved by morphine. Previously had nausea relieved with morphine, denies any vomitting SOB pain with urination, has chronic constipation. Patient understands we will speak with urology. Allergies Allergy/AdvReac Type Severity Reaction Status Date / Time adhesive AdvReac Mild Rash Uncoded 03/30/21 14:07 Home Medications Medication Instructions Recorded Confirmed Type cholecalciferol (vitamin D3) 50 5,000 units PO HS 12/17/19 02/27/22 History mcg (2,000 unit) tablet omega-3 fatty acids-fish oil 435 2 cap PO QAM 04/20/20 02/27/22 History mg-880 mg capsule (Fish Oil Extra Strength) cetirizine 10 mg tablet (Zyrtec) 10 mg PO DAILY 05/26/20 02/27/22 History melatonin 5 mg tablet 3 mg PO HS 05/26/20 02/27/22 History pantoprazole 40 mg tablet,delayed 40 mg PO BID #180 tabs 06/01/21 02/27/22 Rx release budesonide-formoterol HFA 80 2 puff inhalation BID #10.2 grams 11/02/21 02/27/22 Rx mcg-4.5 mcg/actuation aerosol inhaler (Symbicort) trazodone 50 mg tablet See Rx Instructions .Route 12/10/21 02/27/22 Rx .COMPLEX #180 tabs sumatriptan succinate 100 mg tablet 100 mg PO .COMPLEX PRN migraine 12/17/21 02/27/22 Rx headache #27 tabs montelukast 10 mg tablet 10 mg PO DAILY #90 tabs 12/28/21 02/27/22 Rx (Singulair) albuterol sulfate 90 mcg/actuation 2 inh inhalation QID PRN shortness 02/27/22 02/27/22 Rx aerosol inhaler of breath or wheezing #8.5 grams oxybutynin chloride 15 mg 15 mg PO DAILY #90 tabs 02/28/22 Rx tablet,extended release 24 hr valacyclovir 1 gram tablet 2,000 mg PO DAILY PRN outbreak #12 02/28/22 Rx tabs propranolol 60 mg capsule,24 60 mg PO QAM #90 caps 04/01/22 Rx hr,extended release topiramate 100 mg tablet 100 mg PO BID 90 days #180 tabs 04/22/22 Rx cevimeline 30 mg capsule 30 mg PO BID #270 caps 04/25/22 Rx Past Med/Surg History Medical History (Updated 05/24/22 @ 21:09 by Rosi Mejia DO) Allergic rhinitis Asthmatic bronchitis Dyspnea on exertion GERD (gastroesophageal reflux disease) GERD (gastroesophageal reflux disease) Herpes simplex Hoarseness Hx of migraines Kidney stones Long COVID Migraine without aura, not intractable, without status migrainosus propranolol for migraines Multiple pulmonary nodules determined by computed tomography of lung Osteoarthritis Osteomalacia pt unaware Positive HAYDEN (antinuclear antibody) Surgical History H/O arthroscopy of shoulder bilateral History of carpal tunnel release bilateral History of esophagogastroduodenoscopy (EGD) History of lithotripsy History of sinus surgery x2 History of tooth extraction History of total abdominal hysterectomy History of tubal ligation Family History Mother Myocardial infarction Sister Multiple sclerosis Denies family history of Colon cancer Ovarian cancer Prostate cancer Breast cancer Colorectal cancer Social History Smoking Status: Never smoker Second Hand Exposure: No; Hx Alcohol Use: No Hx Substance Use: No Preferred Language: Setswana Communication Ability: Effective Visual Impairment: No Limitations Hearing Ability: Normal Oxygen Therapist Required: No Beliefs That Will Affect Care: None marital status: Current Living Situation: Spouse current occupational status: employed 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 How many Children do You have: 2 Feels Safe at Home: Yes Childhood Exposure to Second-Hand Smoke: No caffeine: Yes during the past year weight has: remained stable Dental Care, Regularly: Yes Physical Activity Frequency: 3-4 Times per Week Physical Activity Frequency Comment: walking Seatbelt Use: always Sunscreen Use: Yes Assistive Devices: Glasses Review of Systems Review of Systems: All systems reviewed & are unremarkable except as noted in HPI & below Physical Exam Constitutional: WD/WN, vitals as above Eyes: PERRL, conjunctivae normal, anicteric sclerae ENMT: external ear and nose normal, oropharynx normal Neck: trachea midline, no thyromegaly Respiratory: normal respiratory effort, lungs clear to auscultation Cardiovascular: RRR, no murmur, no edema Gastrointestinal (Abdomen): Inspection/Auscultation: abdomen normal to inspection Percussion/Palpation: abdomen soft; abdomen nontender Skin: no rashes, warm and dry Results & Data Results & Data Vital Signs (Past 12 Hours) Vital Signs Temp Pulse Resp BP Pulse Ox O2 Del Method 05/24/22 20:18 90 18 132/90 98 Room Air 05/24/22 17:49 36.9 C 54 L 20 157/94 H 99 Room Air Resident Activity Tracking Resident Involvement: Resident Care Provided Care Provided: Adult Hospital Medicine
[2022-05-24] MEDS ORDERED: SUMAtriptan succinate 100 MG TAB PO PRN (21:56)
[2022-05-24] MEDS ORDERED: traZODone HCL 50 MG TAB PO PRN (21:56)
[2022-05-24] MEDS ORDERED: ALBUTEROL HFA 8 GM INHALER INH PRN (21:56)
[2022-05-24] MEDS: TAMSULOSIN HCL 0.4 MG CAP PO SCH (22:44)
[2022-05-24] MEDS: MoRPHine SULFATE 2 MG/ML CARP IV PRN (23:20)
[2022-05-25] MEDS: ACETAMINOPHEN 500 MG TAB PO PRN ×2 (03:48→20:28)
[2022-05-25] MEDS: MONTELUKAST SODIUM 10 MG TABLET PO SCH (07:58)
[2022-05-25] MEDS: OXYBUTYNIN CHLORIDE XL 5 MG TABCR PO SCH (07:59)
[2022-05-25] MEDS: TOPIRAMATE 100 MG TAB PO SCH ×2 (07:59→20:30)
[2022-05-25] MEDS: CETIRIZINE HCL 10 MG TABLET PO SCH (08:00)
[2022-05-25] MEDS: PANTOprazole 40 MG TAB PO SCH ×2 (08:00→20:30)
[2022-05-25] MEDS: PROPRANOLOL HCL 60 MG LA CAP PO SCH (08:00)
[2022-05-25] MEDS: OMEGA-3 (PURIFIED FISH OIL) 1 GM CAP PO SCH (08:00)
[2022-05-25] MEDS: FLUTICASONE/VILANTEROL 100/25MCG 14 PUFFS/INHALER INH SCH (08:01)
--- NOTE | 2022-05-25 08:40 | Hospitalist Progress Note ---
Date of Service May 25, 2022 Assessment & Plan (1) Right nephrolithiasis: Plan: 56yo Female with PMH GERD obesity prediabetes migraines here for right sided nephrolithiasis. Right sided nephrolithiasis with hydronephrosis -CT A/P: Obstructive 3 mm UVJ stone on the right with associated hydronephrosis/hydroureter. Nonobstructive stones are also seen. -received NSS 2L, ceftriaxone 2g, ketorolac and morphine total 10mg IV in ED -Admitted to med surg; urology consulted given hydronephrosis * NPO * Flomax 0.4 mg * Appreciate urology recs Insomnia * continue home melatonin, trazodone GERD * continue Protonix 40mg BID Migraine * continue home propranolol, topiramate, PRN sumatriptan Dry mouth * continue home cevimeline Dyspnea * Continue home budesonide-formoterol * PRN albuterol Allergic Rhinitis * continue home cetirizine, montelukast FENa: regular, npo Code Status: full DVT PPX: ambulatory Dispo: med/surg (2) Hydronephrosis: (3) Hyperactivity of bladder: (4) Migraine without aura, not intractable, without status migrainosus: (5) Allergic rhinitis: (6) Insomnia: (7) Chronic constipation: (8) Vitamin D deficiency: (9) GERD (gastroesophageal reflux disease): Admission and Anticipated Discharge Date Admission Date: May 24, 2022 Supervising Physician Co-Signing Physician Notes I personally examined the patient and verified all danielson points of history and exam, discussed case, and agree with decision making with Dr Jimenez Seen post cystoscopy. Feeling better, but very worried about going home, worried about pain, worried about her ability to navigate aroundwould like to follow into tomorrow to see how she feels. Vitals noted, in general she is awake and alert pleasant no distress. HEENT normocephalic atraumatic mucous membranes moist. Breathing unlabored no accessory muscle use good effort. Skin shows no rashes no pallor or icterus. Neuro without focal deficits. Ureterolithiasis with superimposed urinary tract infectionfortunately not septic, but certainly a very high risk situationappreciate urology promptly stenting the situation. Continue IV antibiotics until cultures. This dovetails nicely with the patient's desire to follow her symptoms into tomorrow. Anticipate the ability to get her home tomorrow on oral antibiotics, assuming pain is controlled. DVT prophylaxis with ambulation Subjective Patient awake, resting comfortably on arrival. She reports increasing right- sided flank, back pain for which she had recently ordered some IV Toradol. Otherwise, she has no acute complaints. Review of Systems Review of Systems: All systems reviewed & are unremarkable except as noted in HPI & below Physical Exam Physical Exam: General: No acute distress HEENT: PERRLA. Normal conjunctiva, anicteric sclera. Oropharynx normal. Respiratory: Normal respiratory effort, CTABL. Cardiovascular: RRR without murmurs, gallops, or rubs. No edema. GI: Soft abdomen with normal bowel sounds heard on auscultation. Nontender x4 quadrants Neuro: Alert and oriented x3. Results & Data Results & Data Vital Signs (Past 12 Hours) Vital Signs Temp Pulse Resp BP Pulse Ox O2 Del Method 05/25/22 08:00 Room Air 05/25/22 07:13 36.8 C 53 L 16 114/70 97 Room Air 05/24/22 21:59 36.9 C 83 16 144/88 H 96 Room Air Resident Activity Tracking Resident Involvement: Resident Care Provided Care Provided: Adult Hospital Medicine
[2022-05-25] MEDS: MoRPHine SULFATE 2 MG/ML CARP IV PRN ×2 (09:05→17:43)
[2022-05-25] MEDS: LACTATED RINGER'S 1,000 ML IV SCH ×2 (09:06→16:20)
--- NOTE | 2022-05-25 10:27 | Urology Consultation ---
Date of Consultation May 25, 2022 Assessment & Plan (1) Renal colic: (2) Hydronephrosis: (3) Right nephrolithiasis: (4) UTI (urinary tract infection): Plan We reviewed that she has a right ureteral stone and possibly urinary tract infection. In the setting, we discussed the typical recommendation would be placement of a right ureteral stent to ensure there is adequate drainage of the right kidney. Reviewed risks and benefits of this surgery including risk of bleeding, infection, injury to urinary tract, need for additional procedures. We also discussed that this should help with her renal colic and if I see the stone from the ureteral orifice, I will try to remove it at the time of surgery. She expressed understanding and would like to proceed with surgery. History of Present Illness Attending Physician: Michael Fong DO History of Present Illness This is a 56-year-old female who presented to the emergency department on 05/24/2022 with Right-sided flank pain. Pain was not associated with nausea, vomiting. She denied any fevers or chills. She had some increased urinary frequency over the preceding week, but no overt dysuria. She has a history of urinary tract infections and did not appreciate any of those same symptoms leading up to the ED visit. Evaluation in the ED was notable for no leukocytosis (WBCs 9.03). Creatinine was 1.20. Urinalysis demonstrated 2+ leukocyte esterase, negative nitrites, greater than 30 WBCs/hpf and negative bacteria. A urine culture was sent and showed gram-negative rods, final results are pending. A CT scan was performed. I independently reviewed these images. Both kidneys are in normal position with multiple 1 to 2 mm stones bilaterally. There is mild hydronephrosis and hydroureter on the right, extending down to a 3 to 4 mm stone at the right UVJ. The bladder is decompressed. Urology was consulted for evaluation of nephrolithiasis. This morning her pain is well controlled and she is not having fevers or chills. She reports a history of stones which required shockwave lithotripsy to pass. Allergies Allergy/AdvReac Type Severity Reaction Status Date / Time adhesive AdvReac Mild Rash Verified 05/24/22 21:48 Home Medications Medication Instructions Recorded Confirmed Type cholecalciferol (vitamin D3) 50 5,000 units PO HS 12/17/19 05/24/22 History mcg (2,000 unit) tablet omega-3 fatty acids-fish oil 435 2 cap PO QAM 04/20/20 05/24/22 History mg-880 mg capsule (Fish Oil Extra Strength) cetirizine 10 mg tablet (Zyrtec) 10 mg PO DAILY 05/26/20 05/24/22 History pantoprazole 40 mg tablet,delayed 40 mg PO BID #180 tabs 06/01/21 05/24/22 Rx release budesonide-formoterol HFA 80 2 puff inhalation BID #10.2 grams 11/02/21 05/24/22 Rx mcg-4.5 mcg/actuation aerosol inhaler (Symbicort) sumatriptan succinate 100 mg tablet 100 mg PO .COMPLEX PRN migraine 12/17/21 05/24/22 Rx headache #27 tabs montelukast 10 mg tablet 10 mg PO DAILY #90 tabs 12/28/21 05/24/22 Rx (Singulair) albuterol sulfate 90 mcg/actuation 2 inh inhalation QID PRN shortness 02/27/22 05/24/22 Rx aerosol inhaler of breath or wheezing #8.5 grams oxybutynin chloride 15 mg 15 mg PO DAILY #90 tabs 02/28/22 05/24/22 Rx tablet,extended release 24 hr valacyclovir 1 gram tablet 2,000 mg PO DAILY PRN outbreak #12 02/28/22 05/24/22 Rx tabs propranolol 60 mg capsule,24 60 mg PO QAM #90 caps 04/01/22 05/24/22 Rx hr,extended release topiramate 100 mg tablet 100 mg PO BID 90 days #180 tabs 04/22/22 05/24/22 Rx cevimeline 30 mg capsule 30 mg PO BID #270 caps 04/25/22 05/24/22 Rx melatonin 12 mg tablet 12 mg PO HS 05/24/22 05/24/22 History trazodone 50 mg tablet 50 mg PO HS 05/24/22 05/24/22 History Patient History Medical History (Updated 05/24/22 @ 22:12 by Michael Gibbs DO) Allergic rhinitis Asthmatic bronchitis Dyspnea on exertion GERD (gastroesophageal reflux disease) GERD (gastroesophageal reflux disease) Herpes simplex Hoarseness Hx of migraines Kidney stones Long COVID Migraine without aura, not intractable, without status migrainosus propranolol for migraines Multiple pulmonary nodules determined by computed tomography of lung Osteoarthritis Osteomalacia pt unaware Positive HAYDEN (antinuclear antibody) Surgical History H/O arthroscopy of shoulder bilateral History of carpal tunnel release bilateral History of esophagogastroduodenoscopy (EGD) History of lithotripsy History of sinus surgery x2 History of tooth extraction History of total abdominal hysterectomy History of tubal ligation Family History Mother Myocardial infarction Sister Multiple sclerosis Denies family history of Colon cancer Ovarian cancer Prostate cancer Breast cancer Colorectal cancer Social History Smoking Status: Never smoker Second Hand Exposure: No; Hx Alcohol Use: Yes Alcohol type: wine Alcohol Intake Frequency: Monthly or Less Hx Substance Use: No Preferred Language: [place]uran Communication Ability: Effective Visual Impairment: No Limitations Hearing Ability: Normal Business Reporter Required: No Beliefs That Will Affect Care: None marital status: Current Living Situation: Spouse current occupational status: employed current occupation: [employer] How many Children do You have: 2 Other Information That Helps Us Care for You: No Feels Safe at Home: Yes Safety Concerns: Feels Safe At This Time Childhood Exposure to Second-Hand Smoke: No caffeine: Yes during the past year weight has: remained stable Dental Care, Regularly: Yes Physical Activity Frequency: 3-4 Times per Week Physical Activity Frequency Comment: walking Seatbelt Use: always Sunscreen Use: Yes Assistive Devices: Glasses Review of Systems Review of Systems: 12 point review of systems negative except for otherwise indicated. Physical Exam Constitutional: well developed and well nourished; no acute distress Eyes: + anicteric sclerae; pupils not irregular Respiratory: normal respiratory effort; no respiratory distress, does not use accessory muscles and no cough Cardiovascular: well perfused Gastrointestinal (Abdomen): Inspection/Auscultation: abdomen normal to inspection; abdomen not distended Musculoskeletal: Extremities: extremities normal to inspection Skin: normal turgor; no rashes and no lesions Neurologic: moves all extremities and awake Psychiatric: Orientation: alert and oriented x 3 Results & Data Vital Signs (Past 12 Hours) Vital Signs Temp Pulse Resp BP Pulse Ox O2 Del Method 05/25/22 08:00 Room Air 05/25/22 07:13 36.8 C 53 L 16 114/70 97 Room Air PG Care Time/CCT Total # of Minutes Spent Total Time Spent with Patient: Total time spent is greater than 50% in coordination of care (as documented) at patient's floor/unit and/or counseling patient: Coding Level of Care Code 44957 IN/OBS CONSULT LVL 4,60M Diagnoses Renal colic N23 Hydronephrosis N13.30 Right nephrolithiasis N20.0 UTI (urinary tract infection) N39.0
[2022-05-25] MEDS ORDERED: PROPOFOL IV EMULSION 10 MG/ML 20 ML VIAL IV ONE (11:42)
[2022-05-25] MEDS ORDERED: LIDOCAINE 2% MPF LOCAL 5 ML VIAL ONE (11:42)
[2022-05-25] MEDS ORDERED: fentaNYL citrate PF 100 MCG/2 ML VIAL ONE (11:42)
[2022-05-25] MEDS ORDERED: MIDAZOLAM HCL 1 MG/ML 2ML VIAL ONE (11:42)
[2022-05-25] MEDS ORDERED: ONDANSETRON INJ 2 MG/ML 2 ML VIAL ONE (11:42)
--- NOTE | 2022-05-25 12:34 | Anesthesiology Consultation ---
Date of Service May 25, 2022 Assessment & Plan (1) Encounter for pre-operative examination: Chart Review Chart Review: Acceptable Risk for Surgery History Surgery Operation Date: 05/25/22 09:15 Proposed Procedures p Cystoscopy - Nash Miller MD s Ureteral Stent Insertion(Right) - Nash Miller MD Height/Weight Height: 5 ft 7 in Weight: 93.9 kg Allergies Allergy/AdvReac Type Severity Reaction Status Date / Time adhesive AdvReac Mild Rash Verified 05/24/22 21:48 Medications Home Medications Medication Instructions Recorded Confirmed Last Taken cholecalciferol (vitamin D3) 50 5,000 units PO HS 12/17/19 05/24/22 05/08/20 mcg (2,000 unit) tablet omega-3 fatty acids-fish oil 435 2 cap PO QAM 04/20/20 05/24/22 05/09/20 mg-880 mg capsule (Fish Oil Extra Strength) cetirizine 10 mg tablet (Zyrtec) 10 mg PO DAILY 05/26/20 05/24/22 Unknown pantoprazole 40 mg tablet,delayed 40 mg PO BID #180 tabs 06/01/21 05/24/22 Unknown release budesonide-formoterol HFA 80 2 puff inhalation BID #10.2 grams 11/02/21 05/24/22 Unknown mcg-4.5 mcg/actuation aerosol inhaler (Symbicort) sumatriptan succinate 100 mg tablet 100 mg PO .COMPLEX PRN migraine 12/17/21 05/24/22 Unknown headache #27 tabs montelukast 10 mg tablet 10 mg PO DAILY #90 tabs 12/28/21 05/24/22 Unknown (Singulair) albuterol sulfate 90 mcg/actuation 2 inh inhalation QID PRN shortness 02/27/22 05/24/22 Unknown aerosol inhaler of breath or wheezing #8.5 grams oxybutynin chloride 15 mg 15 mg PO DAILY #90 tabs 02/28/22 05/24/22 Unknown tablet,extended release 24 hr valacyclovir 1 gram tablet 2,000 mg PO DAILY PRN outbreak #12 02/28/22 05/24/22 Unknown tabs propranolol 60 mg capsule,24 60 mg PO QAM #90 caps 04/01/22 05/24/22 Unknown hr,extended release topiramate 100 mg tablet 100 mg PO BID 90 days #180 tabs 04/22/22 05/24/22 Unknown cevimeline 30 mg capsule 30 mg PO BID #270 caps 04/25/22 05/24/22 Unknown melatonin 12 mg tablet 12 mg PO HS 05/24/22 05/24/22 Unknown trazodone 50 mg tablet 50 mg PO HS 05/24/22 05/24/22 Unknown Active Medications Generic Name Dose Route Start Last Admin Trade Name Rachna PRN Reason Stop Dose Admin Acetaminophen 1,000 mg 05/24/22 21:00 05/25/22 03:48 Acetaminophen 500 Mg Tab PO 06/23/22 20:59 1,000 mg Q8H PRN Administration pain (0-5) Cetirizine HCl 10 mg 05/25/22 09:00 05/25/22 08:00 Cetirizine Hcl 10 Mg Tablet PO 06/24/22 08:59 10 mg DAILY MARY JANE Administration Fish Oil 2 gm 05/25/22 09:00 05/25/22 08:00 [place]-3 (Purified Fish Oil) 1 Gm Cap PO 06/24/22 08:59 2 gm QAM MARY JANE Administration Fluticasone/Vilanterol 1 puffs 05/25/22 09:00 05/25/22 08:01 Fluticasone/Vilanterol 100/25mcg 14 Puffs/Inhaler INH 06/24/22 08:59 1 puffs DAILY MARY JANE Administration Lactated Ringer's 1,000 mls @ 125 mls/hr 05/25/22 09:00 05/25/22 09:06 Lr IV 06/24/22 08:59 125 mls/hr .Q8H MARY JANE Administration Miscellaneous 1 each 05/25/22 00:00 05/25/22 08:00 Cevimeline 30 Mg - Order Awaiting Action N/A 06/24/22 00:00 Not Given QS MARY JANE Montelukast Sodium 10 mg 05/25/22 09:00 05/25/22 07:58 Montelukast Sodium 10 Mg Tablet PO 06/24/22 08:59 10 mg DAILY MARY JANE Administration Morphine Sulfate 2 mg 05/24/22 21:00 05/25/22 09:05 Morphine Sulfate 2 Mg/Ml Carp IV 06/07/22 20:59 2 mg Q6H PRN Administration Pain (6-9) Oxybutynin Chloride 15 mg 05/25/22 09:00 05/25/22 07:59 Oxybutynin Chloride Xl 5 Mg Tabcr PO 06/24/22 08:59 15 mg DAILY MARY JANE Administration Pantoprazole Sodium 40 mg 05/25/22 09:00 05/25/22 08:00 Pantoprazole 40 Mg Tab PO 06/24/22 08:59 40 mg BID MARY JANE Administration Propranolol HCl 60 mg 05/25/22 09:00 05/25/22 08:00 Propranolol Hcl 60 Mg La Cap PO 06/24/22 08:59 Not Given QAM MARY JANE Tamsulosin HCl 0.4 mg 05/24/22 21:56 05/24/22 22:44 Tamsulosin Hcl 0.4 Mg Cap PO 06/23/22 21:55 0.4 mg HS MARY JANE Administration Topiramate 100 mg 05/25/22 09:00 05/25/22 07:59 Topiramate 100 Mg Tab PO 06/24/22 08:59 100 mg BID MARY JANE Administration NPO Date Last Intake of Fluids: 05/24/22 Time Last Intake of Fluids: 23:30 Date Last Intake of Solids: 05/24/22 Time Last Intake of Solids: 23:30 Past Medical History Medical History Allergic rhinitis Asthmatic bronchitis Dyspnea on exertion GERD (gastroesophageal reflux disease) GERD (gastroesophageal reflux disease) Herpes simplex Hoarseness Hx of migraines Kidney stones Long COVID Migraine without aura, not intractable, without status migrainosus propranolol for migraines Multiple pulmonary nodules determined by computed tomography of lung Osteoarthritis Osteomalacia pt unaware Positive HAYDEN (antinuclear antibody) Past Family History Family History Mother Myocardial infarction Sister Multiple sclerosis Denies family history of Colon cancer Ovarian cancer Prostate cancer Breast cancer Colorectal cancer Past Surgical History Surgical History H/O arthroscopy of shoulder bilateral History of carpal tunnel release bilateral History of esophagogastroduodenoscopy (EGD) History of lithotripsy History of sinus surgery x2 History of tooth extraction History of total abdominal hysterectomy History of tubal ligation Social History Smoking Status: Never smoker Hx Alcohol Use: Yes Alcohol type: wine alcohol intake frequency: holidays/special occasions only Hx Substance Use: No substance use type: does not use Physical Exam Vital Signs Last Vital Signs Temp 36.8 C 05/25/22 07:13 Pulse 53 L 05/25/22 07:13 Resp 16 05/25/22 07:13 BP 114/70 05/25/22 07:13 Pulse Ox 97 05/25/22 07:13 O2 Del Method Room Air 05/25/22 08:00 Testing Laboratory Results 05/24/22 18:28 05/24/22 18:28 Urine Color Yellow 05/24/22 19:06 Urine Appearance Turbid (Clear) A 05/24/22 19:06 Urine pH >= 9.0 (4.5-7.5) H 05/24/22 19:06 Ur Specific [place] 1.015 (1.000-1.030) 05/24/22 19:06 Urine Protein Trace (Negative) H 05/24/22 19:06 Urine Glucose (UA) Negative (Negative) 05/24/22 19:06 Urine Ketones Negative (Negative) 05/24/22 19:06 Urine Nitrite Negative (Negative) 05/24/22 19:06 Ur Leukocyte Esterase 2+ (Negative) H 05/24/22 19:06 Urine WBC (Auto) >30 /hpf (0-5) H 05/24/22 19:06 Urine RBC (Auto) 5-10 /hpf (0-4) H 05/24/22 19:06 U Hyaline Cast (Auto) 1-5 /lpf (0-5) 05/24/22 19:06 U Epithel Cells (Auto) 5-10 /lpf (0-5) H 05/24/22 19:06 Urine Bacteria (Auto) Negative (Negative) 05/24/22 19:06 05/24/22 19:06 Urine Culture - Preliminary Urine,Clean Catch Gram negative bacilli
[2022-05-25] MEDS ORDERED: ATROPINE SULFATE 0.1 MG/ML 10ML SYR IV PRN (12:39)
[2022-05-25] MEDS ORDERED: fentaNYL citrate PF 100 MCG/2 ML VIAL IV PRN (12:39)
[2022-05-25] MEDS ORDERED: ONDANSETRON INJ 2 MG/ML 2 ML VIAL IV PRN (12:39)
[2022-05-25] MEDS ORDERED: DIATRIZOATE MEGLUMINE 30% 100ML VIAL INSTIL ONE (13:42)
--- NOTE | 2022-05-25 13:42 | Operative Report ---
[facility] Post Operative Report Pre & Post Diagnosis Operation Date: 05/25/22 09:15 Pre-Op Diagnosis: Right kidney stone Post-Op Diagnosis: Right kidney stone I identified the patient and participated in the time-out.: Yes Procedure Operation Date: 05/25/22 09:15 Actual Procedures p Cystoscopy, Right Ureteral Stent Insertion, right retrograde pyelogram (Right) - Nash Miller MD Surgeon Nash Miller MD Auto Wheel Alignment Specialist None Estimated Blood Loss 0 Findings Consistent with Post-Op Diagnosis Specimens None Drains 6 German by 24 cm double-J ureteral stent in the right ureter Anesthesia Type MAC Complications none Disposition Accompanied Patient To Recovery: Yes Disposition: Recovery Room Indications This is a 56-year-old female who presented to the emergency department with right-sided flank pain and was found to have a right ureteral stone. Due to ongoing pain as well as concern for possible infection, she presents to the OR for right ureteral stent placement to decompress the right kidney. Description of Procedure The patient was identified in the holding area and informed consent was confirmed. She was marked on the right side, then was taken to the operating room where anesthesia was initiated. She was placed in the dorsal lithotomy position with all pressure points appropriately padded. She was prepped and draped in the usual sterile fashion and a preoperative timeout was performed. A well-lubricated cystoscope was inserted per urethra and panendoscopy was performed. The urethra was normal in appearance. The bladder was of normal size with ureteral orifices in orthotopic position. No tumors or stones were appreciated within the bladder. The stone could not be visualized at the u reteral orifice. The right ureteral orifice was identified and cannulated with a 5 German open- ended catheter. A retrograde pyelogram was performed demonstrating the ureter was normal in course and caliber. No filling defects were appreciated. There was mild hydronephrosis of the kidney. A 0.038" ZIPwire was advanced to the level of the kidney under fluoroscopic guidance. Over the wire, a 6 German x 24 centimeter double-J ureteral stent was advanced. When the wire was removed, the proximal curl was visualized in the kidney with x-ray, and the distal curl visualized in the bladder with the cystoscope. At this point the bladder was drained and all instrumentation was removed. The patient was then awakened from anesthesia and was brought to the PACU in stable condition. I attest to the content of the Intraoperative Record and any orders documented therein. Any exceptions are noted below.
--- NOTE | 2022-05-25 14:05 | Fluoroscopy Report ---
FL retrograde includes kub CLINICAL HISTORY: RETROGRADE, RIGHT STENT PLACEMENT TECHNIQUE: 3 views were obtained with the C-arm in the OR with the above procedure. Total fluoroscopy time was 11.9 seconds. Radiation dose was 2.1 mGy. Comparison: Comparison is made to CT abdomen pelvis 05/24/2022 FINDINGS/IMPRESSION: Intraoperative images were obtained of right retrograde pyelogram and stent plac ement. Please correlate with intraoperative fluoroscopy and operative report. ACT 112: Negative or not required by law. Electronically signed by: Doug Rudd M.D. 05/25/2022 2:02 PM
--- NOTE | 2022-05-25 14:08 | Anesthesiology Progress Note ---
Date of Service May 25, 2022 Anesthesia Post Procedure Vital Signs Vital Signs: Temp Pulse Pulse Pulse Resp BP BP 05/25/22 14:05 36.8 C 61 12 05/25/22 13:55 57 L 12 05/25/22 13:46 36.2 C L 72 12 05/25/22 08:00 05/25/22 07:13 36.8 C 53 L 16 114/70 05/24/22 21:59 36.9 C 83 16 144/88 H 05/24/22 20:18 90 18 132/90 05/24/22 17:49 36.9 C 54 L 20 157/94 H BP Pulse Ox O2 Del Method O2 Flow Rate 05/25/22 14:05 127/78 97 Room Air 05/25/22 13:55 134/69 99 Oxymask 5 05/25/22 13:46 143/79 H 99 Oxymask 9 05/25/22 08:00 Room Air 05/25/22 07:13 97 Room Air 05/24/22 21:59 96 Room Air 05/24/22 20:18 98 Room Air 05/24/22 17:49 99 Room Air Transfer of Care Handoff Completed per policy Notes Mental Status: alert / awake / arousable Patient Amnestic to Procedure: Yes Nausea / Vomiting: adequately controlled Pain: adequately controlled Airway Patency, RR, SpO2: stable & adequate BP & HR: stable & adequate Hydration State: stable & adequate Anesthetic Complications: no major complications apparent
--- NOTE | 2022-05-25 18:05 | Billing Data ---
Date of Service May 25, 2022 Coding Level of Care Code 71369 SUB INP/OBS CARE
[2022-05-25] MEDS ORDERED: cefTRIAXone SODIUM 2,000 MG in DEXTROSE 5% 50 ML IV SCH (20:00)
[2022-05-25] MEDS: TAMSULOSIN HCL 0.4 MG CAP PO SCH (20:30)
[2022-05-25] MEDS ORDERED: CHOLECALCIFEROL 5,000 UNITS 125 MCG TAB PO SCH (21:00)
[2022-05-25] MEDS ORDERED: MELATONIN 3 MG TAB PO SCH (21:00)
[2022-05-26] MEDS: ACETAMINOPHEN 500 MG TAB PO PRN (06:08)
[2022-05-26] MEDS ORDERED: IBUPROFEN 800 MG TAB PO PRN (08:17)
[2022-05-26] MEDS: PROPRANOLOL HCL 60 MG LA CAP PO SCH (09:00)
[2022-05-26] MEDS: OXYBUTYNIN CHLORIDE XL 5 MG TABCR PO SCH (09:00)
[2022-05-26] MEDS: CETIRIZINE HCL 10 MG TABLET PO SCH (09:01)
[2022-05-26] MEDS: MONTELUKAST SODIUM 10 MG TABLET PO SCH (09:01)
[2022-05-26] MEDS: FLUTICASONE/VILANTEROL 100/25MCG 14 PUFFS/INHALER INH SCH (09:02)
[2022-05-26] MEDS: PANTOprazole 40 MG TAB PO SCH (09:02)
[2022-05-26] MEDS: OMEGA-3 (PURIFIED FISH OIL) 1 GM CAP PO SCH (09:02)
--- NOTE | 2022-05-26 09:42 | Urology Progress Note ---
Date of Service May 26, 2022 Assessment & Plan (1) Right nephrolithiasis: (2) UTI (urinary tract infection): Plan She is recovering appropriately from right ureteral stent placement on 05/25/2022. Urine culture showing pansensitive E. coli. She is hemodynamically stable and feeling well. She should be appropriate for discharge home today on oral antibiotics, would recommend 7-day course for treatment of UTI. Urology will coordinate outpatient follow-up and subsequent stone/stent removal. No further intervention planned for this hospitalization. Admission and Anticipated Discharge Date Admission Date: May 24, 2022 Subjective Feeling well this morning Reports urinary frequency but feels like she is emptying well Tolerating the stent without too much pain Denies any fevers or chills Physical Exam Physical Exam: Well-appearing, NAD Respiratory: Breathing comfortably on room air, no audible wheezing Results & Data Vital Signs (Past 12 Hours) Vital Signs Temp Pulse Resp BP Pulse Ox O2 Del Method 05/26/22 07:49 36.5 C 60 17 132/88 96 Room Air 05/25/22 22:21 36.8 C 50 L 16 144/75 H 97 Room Air PG Care Time/CCT Total # of Minutes Spent Total Time Spent with Patient: Total time spent is greater than 50% in coordination of care (as documented) at patient's floor/unit and/or counseling patient: Coding Level of Care Code 79452 SUB INP/OBS CARE 03/20MIN Diagnoses Right nephrolithiasis N20.0 UTI (urinary tract infection) N39.0
[2022-05-26] MEDS: TOPIRAMATE 100 MG TAB PO SCH (09:44)
[2022-05-26 09:58] LABS: Basophils # (auto) 0.05 K/uL (0-0.2); Basophils % (auto) 0.8 %; Eosinophils % (auto) 1.6 %; Hematocrit (blood only) 40.7 % (37.0-47.0); Hemoglobin 12.9 g/dl (12.0-16.0); Immature Granulocytes # (auto) 0.02 K/uL (0.01-0.20); Immature Granulocytes % (auto) 0.3 %; Lymphocytes # (auto) 1.83 K/uL (1.2-3.4); Lymphocytes % (auto) 29.3 %; Mean Corpuscular Hemoglobin 28.5 pg (25.0-34.0); Mean Corpuscular Hgb Conc 31.7 g/dL (32.0-36.0); Mean Platelet Volume 10.5 fL (9.4-12.4); Monocytes # (auto) 0.29 K/uL (0.11-0.59); Monocytes % (auto) 4.6 %; Neutrophils # (auto) 3.95 K/uL (1.40-6.50); Neutrophils % (auto) 63.4 %; Platelet Count 233 K/uL (130-400); RDW Coefficient of Variation 13.4 % (11.5-14.5); RDW Standard Deviation 44.2 fL (36.4-46.3); Red Blood Count 4.52 M/uL (4.20-5.40); White Blood Count 6.24 K/ul (4.8-10.8)
[2022-05-26 10:03] LABS: BUN Creatinine Ratio 8.5 (10-20); Calcium 9.1 mg/dl (8.6-10.3); Creatinine Clr Calc Pharmacy 78.6 ml/min; Est GFR (African American) 78.6 ml/min; Est GFR (Non-African American) 67.8 ml/min; Potassium 3.9 mmol/L (3.5-5.1)
--- NOTE | 2022-05-26 11:28 | Discharge Summary ---
Date of Service May 26, 2022 Admission HPI Per Admitting Provider 56yo Female with PMH GERD obesity prediabetes migraines here for right sided nephrolithiasis. Patient states she was at work today, came back from bathroom and noted right sided back pain constant, states it felt like her prior kidney stone in 2013 so came to ED. States pain was relieved by morphine. Previously had nausea relieved with morphine, denies any vomitting SOB pain with urination, has chronic constipation. Patient understands we will speak with urology. Admission Exam Per Admitting Provider Constitutional: WD/WN, vitals as above Eyes: PERRL, conjunctivae normal, anicteric sclerae ENMT: external ear and nose normal, oropharynx normal Neck: trachea midline, no thyromegaly Respiratory: normal respiratory effort, lungs clear to auscultation Cardiovascular: RRR, no murmur, no edema Gastrointestinal (Abdomen): Inspection/Auscultation: abdomen normal to inspection Percussion/Palpation: abdomen soft; abdomen nontender Skin: no rashes, warm and dry Principal Diagnosis Right-sided nephrolithiasis Discharge Exam General: No acute distress HEENT: PERRLA. Normal conjunctiva, anicteric sclera. Oropharynx normal. Respiratory: Normal respiratory effort, CTABL. Cardiovascular: RRR without murmurs, gallops, or rubs. No edema. GI: Soft abdomen with normal bowel sounds heard on auscultation. Nontender x4 quadrants Neuro: Alert and oriented x3. Discharge Data Allergies Allergy/AdvReac Type Severity Reaction Status Date / Time adhesive AdvReac Mild Rash Verified 05/24/22 21:48 Consultations 05/24/22 21:56 Consult Urology Routine Procedures Performed Operation Date: 05/25/22 09:15 Actual Procedures p Cystoscopy(Not Applicable) - Nash Miller MD s Right Ureteral Stent Insertion, right retrograde pyelogram (Right) - Nash Miller MD Ordered Studies 05/24/22 17:52 CT abd pelvis wo con Stat 05/25/22 [place] retrograde includes kub Routine Hospital Course (1) Right nephrolithiasis: 56yo Female with PMH GERD, obesity, prediabetes, and migraines here for right sided nephrolithiasis. Right sided nephrolithiasis with hydronephrosis -CT A/P: Obstructive 3 mm UVJ stone on the right with associated hydronephrosis/hydroureter. Nonobstructive stones are also seen. -received NSS 2L, ceftriaxone 2g, ketorolac and morphine total 10mg IV in ED -Admitted to med surg; urology consulted given hydronephrosis * NPO * Flomax 0.4 mg * Appreciate urology recs Insomnia * continue home melatonin, trazodone GERD * continue Protonix 40mg BID Migraine * continue home propranolol, topiramate, PRN sumatriptan Dry mouth * continue home cevimeline Dyspnea * Continue home budesonide-formoterol * PRN albuterol Allergic Rhinitis * continue home cetirizine, montelukast FENa: regular, npo Code Status: full DVT PPX: ambulatory Dispo: med/surg (2) Hydronephrosis: (3) Hyperactivity of bladder: (4) Migraine without aura, not intractable, without status migrainosus: (5) Allergic rhinitis: (6) Insomnia: (7) Chronic constipation: (8) Vitamin D deficiency: (9) GERD (gastroesophageal reflux disease): Total Time Total Time Spent Total Time Spent (In Minutes): <30 Discharge Plan Discharge Items Patient Disposition: Home - Self-Care Reason For Visit: KIDNEY STONE Discharge Diagnosis: Nephrolithiasis Activity: Per Instructions section Non-emergency contact: Primary Care Provider and Urologist Call non-emergency contact if: you have any medication questions and your symptoms worsen Follow-up/Referrals: Jose De Jesus Pierce DO [Primary Care Provider] - Diet: Regular Addtl Attending Provider Instructions: Dear Veronique, You came to the hospital because of severe flank pain and was found to have an obstructing kidney stone in your right ureter. We gave you medicines to help manage your pain and treat any potential infection. We also consulted with our urology specialist, who placed a stent, or a tube to help you relieve the obstruction. Now that this procedure is complete, we feel that you are ready to be safely discharged home. The urologist who examined you left some instructions on how to manage your symptoms while you are at home. Please read them carefully. If you have any questions after you have been discharged, please contact your primary care physician. Medications We added the following medications to your list. Please take them as instructed here: * We sent a medication called cefdinir to your pharmacy. Please take 1 (one) cefdinir 300 mg tablet twice a day for 10 days. Start this tonight. Follow-up -The office of the urologist, Dr. Nash Miller, will contact you to schedule an outpatient appointment next week in order to coordinate stone removal. If you do not hear from his office by Friday, you may contact them at [phone]. -You should also schedule an appointment with your primary care physician, Dr. Jose De Jesus Pierce, within 1 to 2 weeks after your discharge. If you are unable to contact his office, you may reach them at [phone]. It has been our pleasure to care for you here at [facility]. If you have any questions or concerns about your care, you may reach us at [phone]. Addtl Mft Provider Instructions: Urology discharge instructions The surgery you had was ureteral stent placement. We did not see the stone, so it is likely still in the ureter. We will have you come to the urology office in the next week to coordinate stone removal. If you are having discomfort from your stent, it is ok to take tylenol alternating with ibuprofen. You can also take AZO, which can be purchased [id number] at the drugstore. Be aware this turns your urine a bright orange color. If you are prescribed a stronger medication you can take this according to instructions on the label. As long as the stent is in place, you may see some blood in the urine. You may have pain in your side when you urinate. The urology office will call you within a couple days of discharge to arrange an outpatient office visit. If you have not heard from us after 2 days, you can call the office at [phone]: Pending Studies at Discharge: No Stand-Alone Forms: My [facility], Smoking Cessation Medications and DC Order Prescriptions: New cefdinir 300 mg capsule 300 mg PO BID 10 Days Qty: 20 0RF Continued pantoprazole 40 mg tablet,delayed release (DR/EC) 40 mg PO BID Qty: 180 3RF montelukast [Singulair] 10 mg tablet 10 mg PO DAILY Qty: 90 3RF valacyclovir 1 gram tablet 2,000 mg PO DAILY PRN (Reason: outbreak) Qty: 12 1RF oxybutynin chloride 15 mg tablet extended release 24hr 15 mg PO DAILY Qty: 90 1RF propranolol 60 mg capsule,extended release 24 hr 60 mg PO QAM Qty: 90 2RF topiramate 100 mg tablet 100 mg PO BID 90 Days Qty: 180 0RF cevimeline 30 mg capsule 30 mg PO BID Qty: 270 3RF Rx Instructions: 30 mg PO 2-3 times a day; cholecalciferol (vitamin D3) 50 mcg (2,000 unit) tablet 5,000 units PO HS budesonide-formoterol [Symbicort] 80-4.5 mcg/actuation HFA aerosol inhaler 2 puff inhalation BID Qty: 10.2 2RF sumatriptan succinate 100 mg tablet 100 mg PO .COMPLEX PRN (Reason: migraine headache) Qty: 27 3RF Rx Instructions: 100 mg PO PRN; take one at onset of migraine, may repeat after two hours prn. Limit to 2-3 days a week albuterol sulfate 90 mcg/actuation HFA aerosol inhaler 2 inh inhalation QID PRN (Reason: shortness of breath or wheezing) Qty: 8.5 3RF cetirizine [Zyrtec] 10 mg tablet 10 mg PO DAILY Fish Oil Extra Strength 435-880 mg Capsule 2 cap PO QAM melatonin 12 mg Tablet 12 mg PO HS trazodone 50 mg tablet 50 mg PO HS Discharge Orders: Discharge Order (Routine); Ordered 05/26/22 Ordered By: Shoshana Hong/Other Patient Handouts: Kidney Stones Expectant Tx Admission Data Admit Date/Time: 05/24/22 20:58 Attending Provider: Michael Fong Admit Provider: Rosi Mejia Primary Care Provider: Jose De Jesus Pierce Other Providers: Norberto Sanchez ; Nash Miller Other Interventions: Discharge Summary Assessment (RN) Last Done: 05/26/22 11:53 Supervising Physician Co-Signing Physician Notes I personally examined the patient and verified all danielson points of history and exam, discussed case, and agree with decision making with Dr Jimenez feels up to going home. pain controlled with tylenol. doesn't feel like she would need anything more. Vitals noted, in general she is awake and alert pleasant no distress. HEENT normocephalic atraumatic mucous membranes moist. Breathing unlabored no accessory muscle use good effort. Skin shows no rashes no pallor or icterus. Neuro without focal deficits. Ureterolithiasis with superimposed urinary tract infectionfortunately not septic, but certainly a very high risk situationappreciate urology promptly stenting the situation. montalvo S e coli. safe for home. finish abx w PO cefdinir.
--- NOTE | 2022-05-26 16:04 | Billing Data ---
Date of Service May 26, 2022 Coding Level of Care Code 86177 IN/OBS DISCH 30 MIN/LESS
== END 2022-05-26 12:50 | disposition home or self-care (01) | DRG 661 ==
LOC: ED 17:38 → SUATTDRO 20:58 → 3N 20:58